=== PATIENT | female | born 1950 | race Caucasian/White ===

== ENCOUNTER 2023-04-27 10:57 | Outpatient (RCR) | payer MEDICARE, OTHER, SELFPAY | END 2023-04-27 23:59 | disposition home or self-care (01) | LOC: RPT 10:57 | PROVIDERS: ATTENDING PHYSICIAN Physical Medicine & Rehabilitation; FAMILY PHYSICIAN Family Medicine | DX: S76.319D Strain of muscle, fascia and tendon of the posterior muscle group at thigh level, unspecified thigh, subsequent encounter (principal); Z73.6 Limitation of activities due to disability; R26.81 Unsteadiness on feet | CPT/HCPCS: 97010; 97110; 97140; 97162; 97530 ==

== ENCOUNTER → 2023-05-09 10:48 | Outpatient (REF) | payer MEDICARE, OTHER, SELFPAY ==
[2023-05-09 11:31] LABS: ALT (SGPT) 19 U/L (0-35); AST (SGOT) 26 U/L (14-36); Albumin 4.2 g/dl (3.5-5.0); Alkaline Phosphatase 64 U/L (38-126); Blood Urea Nitrogen 14 mg/dl (7-17); Calcium 8.9 mg/dl (8.4-10.2); Carbon Dioxide 28 mmol/L (22-30); Chloride 103 mmol/L (98-107); Glucose 183 mg/dl (70-99); HDL Cholesterol 40 mg/dl; LDL Cholesterol, Calculated 95 mg/dl; Potassium 4.5 mmol/L (3.5-5.1); Sodium 137 mmol/L (135-145); Total Bilirubin 0.5 mg/dl (0.2-1.3); Total Cholesterol 154 mg/dl (50-199); Total Protein 7.4 g/dl (6.3-8.2); Triglyceride 98 mg/dl (10-149); Very Low Density Lipoprotein 19 mg/dl (0-30); eGFR > 60.00
[2023-05-09 12:40] LABS: Protein/creatinine Ratio 0.3; Urine Protein 17 mg/dl
[2023-05-09 12:45] LABS: Microalbumin, Random Urine 6.8 mg/dl (0.6-1.7); Microalbumin/creatinine Ratio 105.6 mg/g
[2023-05-09 13:11] LABS: Glycohemoglobin (HgbA1c) 8.1 % (4.0-5.6)
== END ==
LOC: REG 10:48
PROVIDERS: ATTENDING PHYSICIAN Specialist; FAMILY PHYSICIAN Family Medicine; REFERRING PHYSICIAN Internal Medicine Endocrinology, Diabetes & Metabolism
DX: N20.0 Calculus of kidney (principal); I10 Essential (primary) hypertension; R80.9 Proteinuria, unspecified; E11.9 Type 2 diabetes mellitus without complications
CPT/HCPCS: 36415; 80053; 80061; 82043; 82570; 83036; 84156

== ENCOUNTER 2023-05-26 11:55 | Outpatient (RCR) | payer MEDICARE, OTHER, SELFPAY | END 2023-05-26 23:59 | disposition home or self-care (01) | LOC: RPT 11:55 | PROVIDERS: ATTENDING PHYSICIAN Physical Medicine & Rehabilitation; FAMILY PHYSICIAN Family Medicine | DX: S76.319D Strain of muscle, fascia and tendon of the posterior muscle group at thigh level, unspecified thigh, subsequent encounter (principal); Z73.6 Limitation of activities due to disability; R26.81 Unsteadiness on feet; X58.XXXD Exposure to other specified factors, subsequent encounter | CPT/HCPCS: 97010; 97110; 97112; 97140; 97530 ==

== ENCOUNTER → 2023-06-03 14:30 | Outpatient (REF) | payer MEDICARE, OTHER, SELFPAY | LOC: REG 14:30 | PROVIDERS: ATTENDING PHYSICIAN Nurse Practitioner Adult Health; FAMILY PHYSICIAN Family Medicine | DX: J44.9 Chronic obstructive pulmonary disease, unspecified (principal) | CPT/HCPCS: 71046 ==

== ENCOUNTER 2023-06-21 12:08 | Outpatient (RCR) | payer MEDICARE, OTHER, SELFPAY | END 2023-06-21 23:59 | disposition home or self-care (01) | LOC: RPT 12:08 | PROVIDERS: ATTENDING PHYSICIAN Physical Medicine & Rehabilitation; FAMILY PHYSICIAN Family Medicine | DX: S76.319D Strain of muscle, fascia and tendon of the posterior muscle group at thigh level, unspecified thigh, subsequent encounter (principal); R26.81 Unsteadiness on feet; Z73.6 Limitation of activities due to disability | CPT/HCPCS: 97110; 97112; 97530 ==

== ENCOUNTER 2023-07-06 15:09 | Outpatient (RCR) | payer MEDICARE, OTHER, SELFPAY | END 2023-07-07 07:34 | disposition home or self-care (01) | LOC: RPT 15:09 | PROVIDERS: ATTENDING PHYSICIAN Physical Medicine & Rehabilitation; FAMILY PHYSICIAN Family Medicine | DX: S76.319D Strain of muscle, fascia and tendon of the posterior muscle group at thigh level, unspecified thigh, subsequent encounter (principal); R26.81 Unsteadiness on feet; Z73.6 Limitation of activities due to disability | CPT/HCPCS: 97110; 97530 ==

== ENCOUNTER → 2023-07-27 11:00 | Outpatient (REF) | payer MEDICARE, OTHER, SELFPAY ==
[2023-07-27 13:01] LABS: Glycohemoglobin (HgbA1c) 8.3 % (4.0-5.6)
[2023-07-27 13:20] LABS: ALT (SGPT) 20 U/L (0-35); AST (SGOT) 29 U/L (14-36); Albumin 4.6 g/dl (3.5-5.0); Alkaline Phosphatase 62 U/L (38-126); Blood Urea Nitrogen 10 mg/dl (7-17); Calcium 9.6 mg/dl (8.4-10.2); Carbon Dioxide 27 mmol/L (22-30); Chloride 102 mmol/L (98-107); Glucose 156 mg/dl (70-99); Potassium 4.6 mmol/L (3.5-5.1); Sodium 138 mmol/L (135-145); Total Bilirubin 0.5 mg/dl (0.2-1.3); Total Protein 8.2 g/dl (6.3-8.2); eGFR > 60.00
[2023-07-27 15:10] LABS: Microalbumin, Random Urine 13.9 mg/dl (0.6-1.7); Microalbumin/creatinine Ratio 498.2 mg/g
== END ==
LOC: REG 11:00
PROVIDERS: ATTENDING PHYSICIAN Internal Medicine Endocrinology, Diabetes & Metabolism; FAMILY PHYSICIAN Family Medicine
DX: E11.9 Type 2 diabetes mellitus without complications (principal)
CPT/HCPCS: 36415; 80053; 82043; 82570; 83036

== ENCOUNTER 2023-09-12 17:38 | Emergency (ER) | payer MEDICARE, OTHER, SELFPAY ==
[2023-09-12 17:40] VITALS: BP 150/67
[2023-09-12 18:46] VITALS: BMI 28.3
[2023-09-12 18:49] VITALS: BP 138/71
--- NOTE | 2023-09-12 18:56 | ED.GENMED ---
History of Present Illness
General
Chief Complaint: Abdominal Pain
Time Seen by Provider: 09/12/23 18:24
Travel History
Have you had any contact with someone who has COVID-19?: No
Do you have any symptoms of coronavirus? Fever > 100 degrees, chills, cough, shortness of breath, sore throat, loss of taste or smell, muscle aches, or headache?: No
History of Present Illness
History of Present Illness:
73-year-old female with history of insulin-dependent diabetes, hypertension, and hyperlipidemia presents to the emergency department for evaluation of several weeks of waxing and waning abdominal pain. It apparently started on the left side and
does radiate across to the right side. She states this is similar to a kidney stone that she had several years ago. Denies any colicky nature of the pain. No obvious palliating or provoking factors. Denies any lower urinary tract voiding
symptoms. Prior abdominal surgical history includes hysterectomy, ovarian cystectomy, and appendectomy.
Review of Systems
Review of Systems
Allergies reviewed?: Yes
All Other Systems: ROS reviewed and negative except as documented in HPI and ROS
Phy Exam
Physical Exam
Physical Exam:
GEN: Well appearing, NAD, WDWN
Eyes: PERRLA, EOMs intact, no scleral icterus
HENT: NCAT, oral mucosa moist
Lungs: CTAB, no wheezes, rales, rhonchi, normal chest wall excursion
Cardiac: RRR, no M/R/G, no peripheral edema. Radial pulses 2+ bilat
Abdomen: Soft, minimal periumbilical tenderness, no rigidity or peritoneal signs
Neuro: AO x 3
MSK: No gross deformity or ecchymosis. No edema. No digital clubbing
Skin: No rashes, petechiae. Normal color, no pallor or jaundice.
Psych: Calm, cooperative, proper hygiene
Course
Orders/Labs/Results
Orders:
Orders
09/12/23 18:55
CT Abd/Pel (IV only)-DH only Urgent
Comment:
Reason For Exam: generalized abd pain
09/12/23 19:00
Complete Blood Count/With Diff Urgent
Comprehensive Metabolic Panel Urgent
Lipase Urgent
Urinalysis Reflex To Culture Urgent
Date Specimen was Collected: 09/12/23
Time Specimen was Collected: 18:59
Urine Microscopic Reflex Cult Urgent
Abnormal Lab Results
09/12/23
19:00
RBC 3.71 L 10^6/uL
(4.20-5.40)
Hgb 9.7 L g/dL
(12.0-16.0)
Hct 29.1 L %
(37.0-47.0)
MCV 78.4 L fL
(81.0-99.0)
MCH 26.1 L pg
(27.0-31.0)
RDW 17.2 H %
(11.5-14.5)
Absolute Monos (auto) 0.7 H 10^3/uL
(0.1-0.6)
Monocytes % 9.9 H %
(1.7-9.3)
Creatinine 0.4 L mg/dL
(0.6-1.0)
Glucose 130 H mg/dl
(70-99)
Leukocyte Esterase Rfl Trace A
(Negative)
Urine Bacteria (Reflex) Few A
(Negative)
09/12/23 19:00
09/12/23 19:00
Vital Signs
Initial and Last Documented VS:
Initial Vital Signs
Temp Pulse Resp BP Pulse Ox
98.7 F 78 18 150/67 97
09/12/23 17:40 09/12/23 17:40 09/12/23 17:40 09/12/23 17:40 09/12/23 17:40
Last Documented Vital Signs
Temp Pulse Resp BP Pulse Ox
98.7 F 81 27 138/71 93
09/12/23 17:40 09/12/23 20:45 09/12/23 20:45 09/12/23 18:49 09/12/23 20:45
MDM/Problems Addressed
MDM/Problems Addressed:
Patient's labs are unremarkable, CT scan notes questionable hazy stranding around the pancreatic head however this does not fit with her examination and clinical picture coupled with normal lipase do not suspect pancreatitis. Unclear etiology to
the patient's symptoms at this point. Patient does have an outpatient GI specialist that she plans to see later this year, I have encouraged her to follow-up with them on a more urgent outpatient basis as endoscopy and/or colonoscopy may be
warranted here. Educated patient on the signs and symptoms of acute pancreatitis that would suggest need for return to the emergency department for reevaluation of lipase levels
*Critical Care Note
Total Time (30-74mins, 75-104mins- exclusive of procedures): Not Applicable
ED Attending Note
-
Portions of this chart may have been created with voice recognition software.� Occasional wrong word or��sound alike� substitutions may have occurred due to the inherent limitations of voice recognition software.
Discharge Plan
Departure
Patient Disposition: Home (Routine Discharge)
Date of Disposition: 09/12/23
Time of Disposition: 20:56
Patient with high blood pressure during this ER visit?: No
Discharge Problem:
Abdominal pain
Instructions: Abdominal Pain
Prescriptions:
New
sucralfate [Carafate] 1 gram tablet
1 g PO AC Qty: 60 0RF
dicyclomine 20 mg tablet
20 mg PO TID PRN (Reason: abdominal pain) Qty: 20 0RF
Referrals:
Chris Kellogg MD [Family Provider] -
Activity Restrictions/Additional Instructions:
Follow up with your GI specialist
Interventions
Interventions:
*Risk Screen - Suicide Last Done: 09/12/23 18:47
*General Assessment Last Done: 09/12/23 18:47
*Neglect/Abuse Screening Last Done: 09/12/23 18:47
ED- Fall Risk Assessment Last Done: 09/12/23 18:47
*ED COVID-19 Vaccine History Last Done: 09/12/23 18:47
*Nursing Disposition Last Done: 09/12/23 21:10
EB-Wqmnzj-Lgjvdjrvzd Assessment Last Done: 09/12/23 18:47
Discharge Date and Time
Discharge Date/Time: 09/12/23 21:15
Print Language: OCCITAN
[2023-09-12 19:12] LABS: % Basophils 0.9 % (0-2); % Eosinophils 2.1 % (0-6); % Immature Granulocytes 0.1 % (0-0.5); % Lymphocytes 22.8 % (20.5-51.1); % Monocytes 9.9 % (1.7-9.3); % Neutrophils 64.2 % (42.2-75.2); Absolute Basophils 0.1 10^3/uL (0-0.2); Absolute Eosinophils 0.2 10^3/uL (0-0.7); Absolute Lymphocytes 1.7 10^3/uL (1.2-3.4); Absolute Monocytes 0.7 10^3/uL (0.1-0.6); Absolute Neutrophils 4.8 10^3/uL (1.4-6.5); Hematocrit 29.1 % (37.0-47.0); Hemoglobin 9.7 g/dL (12.0-16.0); Mean Corp Hgb Conc. 33.3 g/dL (33.0-37.0); Mean Corpuscular Hgb 26.1 pg (27.0-31.0); Mean Corpuscular Volume 78.4 fL (81.0-99.0); Mean Platelet Volume 8.7 fL (7.4-10.4); Nucleated Red Blood Cells % 0 %; Platelet Count 321 10^3/uL (130-400); Red Blood Cell Count 3.71 10^6/uL (4.20-5.40); Red Cell Dist. Width 17.2 % (11.5-14.5); White Blood Cell Count 7.5 10^3/uL (4.8-10.8)
[2023-09-12 19:14] LABS: Urine Albumin Trace (Neg - Trace); Urine Bilirubin Negative (Negative); Urine Character Clear (Clear); Urine Color Yellow; Urine Glucose Negative (Negative); Urine Ketone Negative (Negative); Urine Leukocyte Trace (Negative); Urine Nitrite Negative (Negative); Urine Occult Blood Negative (Negative); Urine Specific Gravity 1.015 (<1.030); Urine Urobilinogen Negative (Neg - 1+)
[2023-09-12 19:27] LABS: ALT (SGPT) 20 U/L (0-35); AST (SGOT) 26 U/L (14-36); Albumin 4.2 g/dl (3.5-5.0); Alkaline Phosphatase 65 U/L (38-126); Blood Urea Nitrogen 15 mg/dl (7-17); Calcium 9.2 mg/dl (8.4-10.2); Carbon Dioxide 26 mmol/L (22-30); Chloride 104 mmol/L (98-107); Estimated Creatinine Clearance 81 ml/min; Glucose 130 mg/dl (70-99); Lipase 54 U/L (23-300); Potassium 4.5 mmol/L (3.5-5.1); Sodium 141 mmol/L (135-145); Total Bilirubin 0.4 mg/dl (0.2-1.3); Total Protein 7.6 g/dl (6.3-8.2); eGFR > 60.00
[2023-09-12 19:53] LABS: Urine Red Blood Cell 0-2 /HPF (0-2)
[2023-09-12 19:54] LABS: Urine Bacteria Few (Negative)
== END 2023-09-12 21:15 | disposition home or self-care (01) ==
LOC: EMR 17:38
PROVIDERS: Physician Assistant; EMERGENCY PHYSICIAN Emergency Medicine; FAMILY PHYSICIAN Internal Medicine Cardiovascular Disease
DX: R10.9 Unspecified abdominal pain (principal); I10 Essential (primary) hypertension; E11.9 Type 2 diabetes mellitus without complications; E78.5 Hyperlipidemia, unspecified
CPT/HCPCS: 99285; 74177; 80053; 81003; 81015; 83690; 85025; Q9967

== ENCOUNTER → 2023-10-03 14:15 | Outpatient (REF) | payer MEDICARE, OTHER, SELFPAY | LOC: RAD 14:15 | PROVIDERS: ATTENDING PHYSICIAN Internal Medicine Critical Care Medicine; FAMILY PHYSICIAN Family Medicine | DX: J44.9 Chronic obstructive pulmonary disease, unspecified (principal) | CPT/HCPCS: 71250 ==

== ENCOUNTER 2023-10-21 11:57 | Emergency (ER) | payer MEDICARE, OTHER, SELFPAY ==
[2023-10-21 11:57] VITALS: BMI 26.6
[2023-10-21 12:01] VITALS: BP 110/57
--- NOTE | 2023-10-21 12:57 | ED.GENMED ---
History of Present Illness
General
Chief Complaint: Musculo-Skeletal Complaint
Source: patient
Time Seen by Provider: 10/21/23 12:25
History of Present Illness
History of Present Illness:
73-year-old female with past medical history of hypertension, hyperlipidemia and diabetes presenting to the emergency department for evaluation after she accidentally tripped and fell last night injuring her left ankle. Patient also noted she hit
her head on the ground but states her head is not bothering her. There is no loss consciousness, vomiting, visual changes or any other injuries sustained
Past History
Past History
ED Past Medical History: Cancer, HTN, Hypercholesterolemia and IDDM
ED Past Surgical History: Appendectomy, Gynecological and Other
Social History
Tobacco: Non-smoker
Alcohol: None
Drug: None
Personal:
Living: with family
Review of Systems
Review of Systems
All Other Systems: ROS reviewed and negative except as documented in HPI and ROS
Phy Exam
Physical Exam
Physical Exam:
GENERAL: Alert , in no apparent distress
EYE: conjunctiva clear
Head: Normocephalic atraumatic
NECK: Supple,
ENT: mmm.
LUNGS: no acute respiratory distress
NEUROLOGICAL: Alert and oriented
SKIN: Warm and dry, skin intact.
MUSCULOSKELETAL: Left ankle: Mild soft tissue swelling along the lateral malleolus with tenderness in this area. No other focal areas of tenderness. Patient still allows for range of motion but does have some discomfort with plantar and
dorsiflexion. No proximal tib-fib tenderness. Calcaneal tendon intact. Easily palpable pedal and tibial pulses. Sensation grossly intact light touch.
PSYCH: Normal and appropriate interaction.
Scores
Heart Failure Risk
Heart Failure Risk Score: Not Applicable
Heart Score for Chest Pain Patients
STEMI patient?: Not applicable
Withdrawal Assessment of Alcohol
Withdrawal Assessment Completed?: Not applicable
Course
Orders/Labs/Results
Orders:
Orders
10/21/23 12:05
Ankle, left 3 view CR [CR Ankle - Left Min 3 Views ] Urgent
Comment:
Reason For Exam: pain
10/21/23 12:58
Ortho Boot Left- Treatment ONCE
Short or tall?: Tall
Vital Signs
Initial and Last Documented VS:
Initial Vital Signs
Temp Pulse Resp BP Pulse Ox
97.9 F 80 20 110/57 94
10/21/23 12:01 10/21/23 12:01 10/21/23 12:01 10/21/23 12:01 10/21/23 12:01
Last Documented Vital Signs
Temp Pulse Resp BP Pulse Ox
97.9 F 80 20 110/57 94
10/21/23 12:01 10/21/23 12:01 10/21/23 12:01 10/21/23 12:01 10/21/23 12:01
MDM/Problems Addressed
Differential Diagnosis Includes:
Sprain, fracture, contusion, I do not have concern for any intracranial pathologies
MDM/Problems Addressed:
73-year-old female presenting emergency department for evaluation of pain following accidental fall last night. X-ray was ordered from triage and shows nondisplaced fracture of the lateral malleolus. Patient notes that she is ambulating because of
some pain while doing so. Will place in a orthopedic boot and patient was also provided with a walker to help with ambulation. Patient was provided with information for orthopedics to follow-up with. She has been seen by [facility] in the
past. Stable for discharge home otherwise
*Radiology
Radiology exam reviewed: preliminary read by ED provider (Nondisplaced lateral malleolus fracture)
*Pulse Oximetry
Patient hypoxic: no
*Critical Care Note
Total Time (30-74mins, 75-104mins- exclusive of procedures): Not Applicable
ED Attending Note
-
Portions of this chart may have been created with voice recognition software.� Occasional wrong word or��sound alike� substitutions may have occurred due to the inherent limitations of voice recognition software.
Discharge Plan
Departure
Patient Disposition: Home (Routine Discharge)
Date of Disposition: 10/21/23
Time of Disposition: 12:57
Patient with high blood pressure during this ER visit?: No
Discharge Problem:
Closed fracture of lateral malleolus of left fibula
Instructions: Ankle Fracture (DC)
Prescriptions:
No Action
sucralfate [Carafate] 1 gram tablet
1 g PO AC Qty: 60 0RF
dicyclomine 20 mg tablet
20 mg PO TID PRN (Reason: abdominal pain) Qty: 20 0RF
Referrals:
Fer Samano MD [Active] - (Ortho)
Chris Kellgog MD [Family Provider] -
Interventions
Interventions:
*Risk Screen - Suicide Last Done: 10/21/23 12:01
*General Assessment Last Done: 10/21/23 13:53
*Neglect/Abuse Screening Last Done: 10/21/23 12:01
ED- Fall Risk Assessment Last Done: 10/21/23 12:01
*Nursing Disposition Last Done: 10/21/23 13:53
ED-Musculoskeletal Assessment Last Done: 10/21/23 12:12
Discharge Date and Time
Print Language: AUSTRALIAN
--- NOTE | 2023-10-21 13:53 | EDRN ---
Pt could not ambulate with boot and cane. Provided Walker. Reports better.
== END 2023-10-21 13:54 | disposition home or self-care (01) ==
LOC: EMR 11:57
PROVIDERS: EMERGENCY PHYSICIAN Student in an Organized Health Care Education/Training Program; FAMILY PHYSICIAN Family Medicine
DX: S82.62XA Displaced fracture of lateral malleolus of left fibula, initial encounter for closed fracture (principal); W01.0XXA Fall on same level from slipping, tripping and stumbling without subsequent striking against object, initial encounter; I10 Essential (primary) hypertension
CPT/HCPCS: 99283; 73610

== ENCOUNTER → 2023-10-27 10:17 | Outpatient (REF) | payer MEDICARE, OTHER, SELFPAY ==
[2023-10-27 11:40] LABS: % Eosinophils 3.5 % (0-6); % Immature Granulocytes 0.3 % (0-0.5); % Lymphocytes 16.2 % (20.5-51.1); % Monocytes 5.4 % (1.7-9.3); % Neutrophils 73.6 % (42.2-75.2); Absolute Basophils 0.1 10^3/uL (0-0.2); Absolute Eosinophils 0.3 10^3/uL (0-0.7); Absolute Lymphocytes 1.2 10^3/uL (1.2-3.4); Absolute Monocytes 0.4 10^3/uL (0.1-0.6); Absolute Neutrophils 5.4 10^3/uL (1.4-6.5); Hematocrit 29.8 % (37.0-47.0); Hemoglobin 9.6 g/dL (12.0-16.0); Mean Corp Hgb Conc. 32.2 g/dL (33.0-37.0); Mean Corpuscular Hgb 25.9 pg (27.0-31.0); Mean Corpuscular Volume 80.3 fL (81.0-99.0); Mean Platelet Volume 8.6 fL (7.4-10.4); Nucleated Red Blood Cells % 0 %; Platelet Count 478 10^3/uL (130-400); Red Blood Cell Count 3.71 10^6/uL (4.20-5.40); Red Cell Dist. Width 18.1 % (11.5-14.5); White Blood Cell Count 7.4 10^3/uL (4.8-10.8)
[2023-10-27 12:28] LABS: IgA 438 mg/dl (70-400)
[2023-10-27 12:29] LABS: Iron 64 ug/dl (37-170); Triglycerides 135 mg/dl (10-149)
[2023-10-27 12:42] LABS: Percent Saturation 16 % (20-50); Total Iron Binding Capacity 381 ug/dl (265-497)
[2023-10-27 13:19] LABS: Folate > 20.0 ng/ml (2.76-20); Vitamin B12 353 pg/ml (239-931)
[2023-10-29 22:25] LABS: Endomysial IgA Antibody Titer <1:10 (<1:10)
[2023-10-30 02:54] LABS: IgG Subclass 4 69 mg/dL (1-123)
[2023-10-30 09:16] LABS: ANA, IgG Reflex to HEp-2 None Detected (None Detected)
== END ==
LOC: REG 10:17
PROVIDERS: ATTENDING PHYSICIAN Specialist; FAMILY PHYSICIAN Family Medicine
DX: K85.00 Idiopathic acute pancreatitis without necrosis or infection (principal); D64.9 Anemia, unspecified; D51.9 Vitamin B12 deficiency anemia, unspecified
CPT/HCPCS: 36415; 82607; 82728; 82746; 82784; 82787; 83516; 83540; 83550; 84478; 85025; 86038; 86231

== ENCOUNTER 2023-11-02 03:59 | Inpatient (IN) | payer MEDICARE, OTHER, SELFPAY ==
[2023-11-01 23:17] VITALS: BMI 28.0
[2023-11-01 23:23] VITALS: BP 142/67
[2023-11-01 23:31] LABS: Glucose - Point of Care 140 mg/dl (70-99)
[2023-11-01 23:46] LABS: % Basophils 0.9 % (0-2); % Eosinophils 3.5 % (0-6); % Immature Granulocytes 0.5 % (0-0.5); % Lymphocytes 17.4 % (20.5-51.1); % Monocytes 8.2 % (1.7-9.3); % Neutrophils 69.5 % (42.2-75.2); Absolute Basophils 0.1 10^3/uL (0-0.2); Absolute Eosinophils 0.3 10^3/uL (0-0.7); Absolute Lymphocytes 1.5 10^3/uL (1.2-3.4); Absolute Monocytes 0.7 10^3/uL (0.1-0.6); Absolute Neutrophils 6.1 10^3/uL (1.4-6.5); Hemoglobin 9.2 g/dL (12.0-16.0); Mean Corp Hgb Conc. 32.9 g/dL (33.0-37.0); Mean Corpuscular Hgb 26.2 pg (27.0-31.0); Mean Corpuscular Volume 79.8 fL (81.0-99.0); Mean Platelet Volume 9.3 fL (7.4-10.4); Nucleated Red Blood Cells % 0 %; Platelet Count 346 10^3/uL (130-400); Red Blood Cell Count 3.51 10^6/uL (4.20-5.40); Red Cell Dist. Width 19.3 % (11.5-14.5); White Blood Cell Count 8.8 10^3/uL (4.8-10.8)
[2023-11-02] VITALS (12 sets, daily range): BP systolic 123–137; BP diastolic 55–73; BMI 27.9
--- NOTE | 2023-11-02 00:27 | ED.GENMED ---
History of Present Illness
General
Chief Complaint: Blood Sugar Problem
Source: patient, spouse and ambulance crew
Exam Limitations: none
Time Seen by Provider: 11/02/23 00:05
Nursing documentation reviewed up to this point in time: agreed with
History of Present Illness
History of Present Illness:
73-year-old female presents emergency room complaining of low blood sugar. Glucometer a low blood sugar alert. EMS was called by family. She ate candy and drank a soda but it did not come up. She was given D10 by EMS, and improved to 92 from 28.
She reports shortness of breath and cough.
Past History
Past History
ED Past Medical History: Cancer, HTN, Hypercholesterolemia and IDDM
ED Past Surgical History: Appendectomy, Gynecological and Other
Social History
Tobacco: Non-smoker
Alcohol: None
Drug: None
Personal:
Living: with family
Review of Systems
Review of Systems
All Other Systems: Not applicable
Constitutional: Reports fatigue; Denies fever
EENT: Reports no symptoms
Respiratory: Reports cough and trouble breathing
Cardiac: Reports no symptoms
ABD/GI: Reports no symptoms
: Reports no symptoms
Musculoskeletal: Reports no symptoms
Skin: Reports no symptoms
Neurological: Reports no symptoms
Endocrine: Reports no symptoms
Hematologic/Lymphatic: Reports no symptoms
Psychiatric: Reports no symptoms
Phy Exam
Physical Exam
Physical Exam:
Physical Exam
General: no apparent distress, not acutely ill
Neck: supple. no meningeal signs. normal posterior pharynx
Heart: s1/s2 regular rate and rhythm, no murmur. equal radial
pulses.
HEENT: Pupils equal round reactive to light, EOMI
Lungs: no acute respiratory distress. clear bilaterally
Abdomen: normal bowel sounds. not tender. no CVAT
Neuro: alert and oriented. no focal neurological deficits cranial nerves II through XII intact
Skin: no rash
Psychiatric: well kept. interactive and cooperative
Extremities: no edema. no calf tenderness. negative homans. good distal pulses
Course
Orders/Labs/Results
Orders:
Orders
11/01/23 23:31
Electrocardiogram (*1) Urgent
Reason for Study: QTc Monitoring
EKG- Treatment ONCE
11/01/23 23:35
Complete Blood Count/With Diff Urgent
11/01/23 23:53
Comprehensive Metabolic Panel Urgent
11/02/23 00:18
CR Chest - 2 Views Urgent
Comment:
Reason For Exam: short of breath
11/02/23 00:19
COVID-19 Antigen Urgent
Source: Nasal Swab
11/02/23 02:33
Cortisol, Random Routine
11/02/23 02:34
Urinalysis Reflex To Culture Routine
11/02/23 06:00
Cortisol, Random IN AM
Abnormal Lab Results
11/01/23 11/01/23 11/02/23
23:30 23:35 00:19
RBC 3.51 L 10^6/uL
(4.20-5.40)
Hgb 9.2 L g/dL
(12.0-16.0)
Hct 28.0 L %
(37.0-47.0)
MCV 79.8 L fL
(81.0-99.0)
MCH 26.2 L pg
(27.0-31.0)
MCHC 32.9 L g/dL
(33.0-37.0)
RDW 19.3 H %
(11.5-14.5)
Absolute Monos (auto) 0.7 H 10^3/uL
(0.1-0.6)
Lymphocytes % 17.4 L %
(20.5-51.1)
Carbon Dioxide 20 L mmol/L
(22-30)
Creatinine 0.4 L mg/dL
(0.6-1.0)
Glucose 114 H mg/dl
(70-99)
POC Glucose 140 H mg/dl
(70-99)
11/01/23 23:35
11/02/23 00:19
Vital Signs
Initial and Last Documented VS:
Initial Vital Signs
Temp Pulse Resp BP Pulse Ox
98.2 F 74 18 142/67 95
11/01/23 23:23 11/01/23 23:23 11/01/23 23:23 11/01/23 23:23 11/01/23 23:23
Last Documented Vital Signs
Temp Pulse Resp BP Pulse Ox
98.2 F 75 21 132/61 95
11/01/23 23:23 11/02/23 02:30 11/02/23 02:30 11/02/23 02:00 11/02/23 02:30
MDM/Problems Addressed
Differential Diagnosis Includes:
Pneumonia, CHF, hypoglycemia, bronchitis
MDM/Problems Addressed:
73-year-old female with hypoxia of unclear etiology, possibly due to bronchitis versus aspiration. Doubt PE. Hypoglycemia from inappropriate insulin use. Admit to hospitalist for further monitoring.
Chronic conditions affecting care: DM
Acute Exacerbation and/or Progression of Chronic Illness: DM
*Radiology
Radiology exam reviewed: preliminary read by ED provider (Chest x-ray no acute findings)
*Pulse Oximetry
Patient hypoxic: yes
*EKG
Interpreted by ED Provider?: NA
*Audit Intern Interpretation
Rate: normal
Interpretation: normal
Heart Rate: 75
Rhythm: sinus
*Critical Care Note
Total Time (30-74mins, 75-104mins- exclusive of procedures): Not Applicable
Data Reviewed
Further Testing Considered But Not Given:
CT chest not indicated
Patient Management
Social determinants of health affecting care: Living situation
Discussion with other providers: Hospitalist
Escalation/DeEscalation of care consider admission/obs:
Admit indicated
ED Attending Note
-
Portions of this chart may have been created with voice recognition software.� Occasional wrong word or��sound alike� substitutions may have occurred due to the inherent limitations of voice recognition software.
Discharge Plan
Departure
Patient Disposition: Admit
Date of Disposition: 11/02/23
Time of Disposition: 02:17
Admit to: Telemetry
Presentation/result/management discussed w/ accepting MD/DO: Hospitalist
Patient with high blood pressure during this ER visit?: Yes
Condition: Fair
Discharge Problem:
Hypoglycemia associated with diabetes, Hypoxia
Prescriptions:
No Action
losartan 50 mg Tablet
50 mg PO DAILY
amlodipine 2.5 mg Tablet
7.5 mg PO DAILY
(DME) Nebulizer Kit
MISCELLANEOUS
Rx Instructions:
BID
atorvastatin 40 mg Tablet
40 mg PO DAILY
metformin 500 mg Tablet
500 mg PO BID
fluoxetine 10 mg Tablet
10 mg PO DAILY
omeprazole 40 mg Capsule,Delayed Release(Dr/Ec)
40 mg PO DAILY
glimepiride 1 mg Tablet
1 mg PO DAILY
amitriptyline 25 mg Tablet
25 mg PO DAILY
nadolol 40 mg Tablet
40 mg PO DAILY
montelukast 10 mg Tablet
10 mg PO DAILY
Levemir FlexPen 100 unit/mL (3 mL) Insulin Pen
SC
Novolog Mix 70-30 U-100 Insuln
Referrals:
UNKNOWN - PT DOES,NOT KNOW [Family Provider] -
Interventions
Interventions:
*Risk Screen - Suicide Last Done: 11/01/23 23:18
*General Assessment Last Done: 11/01/23 23:18
*Neglect/Abuse Screening Last Done: 11/01/23 23:18
ED- Fall Risk Assessment Last Done: 11/02/23 01:30
*ED COVID-19 Vaccine History Last Done: 11/02/23 01:30
ED- Neurological Assessment Last Done: 11/01/23 23:30
Discharge Date and Time
Print Language: NEPALI
[2023-11-02 00:37] LABS: COVID-19 Antigen Negative (Negative)
[2023-11-02 00:44] LABS: ALT (SGPT) 16 U/L (0-35); AST (SGOT) 30 U/L (14-36); Albumin 3.7 g/dl (3.5-5.0); Alkaline Phosphatase 63 U/L (38-126); Blood Urea Nitrogen 13 mg/dl (7-17); Calcium 9.4 mg/dl (8.4-10.2); Carbon Dioxide 20 mmol/L (22-30); Chloride 104 mmol/L (98-107); Estimated Creatinine Clearance 81 ml/min; Glucose 114 mg/dl (70-99); Potassium 3.7 mmol/L (3.5-5.1); Sodium 137 mmol/L (135-145); Total Bilirubin 0.4 mg/dl (0.2-1.3); Total Protein 6.8 g/dl (6.3-8.2); eGFR > 60.00
[2023-11-02 02:07] LABS: Glucose - Point of Care 84 mg/dl (70-99)
--- NOTE | 2023-11-02 02:36 | HPS.HSE ---
Family Physician
-
Family Physician: NOT KNOW UNKNOWN - PT DOES
Chief Complaint
-
low BG
History of Present Illness
HPI
73F Non smoker [facility] with HX IDDM seen at ER for evaluation of Hypoglycemia
- Low BG was alerted by Glucometer - not improved with candy and soda
- Per EMS BG was 47 then 28 - D10 was given at BG become 92
- Report poor PO intake
- On Tuesday11/01/23 : overmedicated with NovoLog (5u at Breakfast + 5 u at Lunch + 15U at Dinner plus 1/2 table of Glimepiride 1 mg on on Tuesday 10/31)
- very small intake at dinner per spouse on Tuesday11/01/23
Known HX abn CT for numerous scattered tiny pulmonary nodules t
- plan to repeat CT chest in 1- 2weeks
- OP f/u with Dr Ramírez
ROS:
- POS SoB and cough
Medical History
Past Medical History
Past Medical History: Reports HTN, IDDM and Other
Additional Past Medical History:
10/03/23 CT Chest W/o Iv Contrast : Numerous scattered tiny pulmonary nodules throughout all lobes, new from prior exam 07/22/2021.
Past Surgical History: Reports Appendectomy and Gynocological
Social History
Tobacco: Non-smoker
Alcohol: None
Drug: None
Living: With Family
Family History
Family History: Not pertinent
Allergies / Home Medications
Allergies reflects when Allergies were last updated in [facility].
Home Medications with original date entered in [facility]
Allergy/Medication List:
Allergies
Allergy/AdvReac Type Severity Reaction Status Date / Time
NKA - No Known Allergies Allergy Unknown Uncoded 11/01/23 23:17
seasonal Allergy headache Uncoded 11/01/23 23:17
Home Medications
Novolog Mix 70-30 U-100 Insuln 11/02/23
amitriptyline 25 mg tablet 25 mg PO DAILY 11/02/23
amlodipine 2.5 mg tablet 7.5 mg PO DAILY 11/02/23
atorvastatin 40 mg tablet 40 mg PO DAILY 11/02/23
fluoxetine 10 mg tablet 10 mg PO DAILY 11/02/23
glimepiride 1 mg tablet 1 mg PO DAILY 11/02/23
insulin detemir U-100 100 unit/mL (3 mL) subcutaneous pen (Levemir FlexPen) unit SC 11/02/23
losartan 50 mg tablet 50 mg PO DAILY 11/02/23
metformin 500 mg tablet 500 mg PO BID 11/02/23
montelukast 10 mg tablet 10 mg PO DAILY 11/02/23
nadolol 40 mg tablet 40 mg PO DAILY 11/02/23
nebulizer accessories 11/02/23
omeprazole 40 mg capsule,delayed release 40 mg PO DAILY 11/02/23
Review of Systems
-
Constitutional: Reports No Symptoms
EENT: Reports No Symptoms
Respiratory: Reports No Symptoms
Cardiac: Reports No Symptoms
Abdomen/GI: Reports No Symptoms
: Reports No Symptoms
Musculoskeletal: Reports No Symptoms
Skin: Reports No Symptoms
Neurological: Reports No Symptoms
Endocrine: Reports See HPI
Hematologic/Lymphatic: Reports No Symptoms
Psych: Reports No Symptoms
Physical Exam
Vital Signs
Vital Signs
Temp Pulse Resp BP Pulse Ox
98.2 F 72 18 129/60 93
11/01/23 23:23 11/02/23 00:30 11/02/23 00:30 11/02/23 00:00 11/02/23 00:30
Physical Exam
General: Well Developed, Well Nourished and No Apparent Distress
HEENT: NormoCephalic, Moist mucous membranes and Atraumatic
Respiratory: Clear
Cardiac: S1/S2 and Regular Rhythm; No Murmur or Rub
GI: Soft, Non Tender, Non Distended and Normal Bowel Sounds; No Organomegaly
Rectal: Deferred by Provider
Musculoskeletal: No Clubbing, No Cyanosis and No Edema
Skin: No Rash
Neuro: Nonfocal/grossly intact
Laboratory Results
-
11/01/23 23:35
11/02/23 00:19
Laboratory Results
Total Bilirubin 0.4 mg/dl (0.2-1.3) 11/02/23 00:19
AST 30 U/L (14-36) 11/02/23 00:19
ALT 16 U/L (0-35) 11/02/23 00:19
Alkaline Phosphatase 63 U/L (38-126) 11/02/23 00:19
Data Reviewed
-
Lab Data: Labs Reviewed by me
Old Records: Reviewed
Impression/Plan
-
Reviewed VS: Afebrile POx 90- 93 % on RA otherwise unremarkable
Data
nl WCC
Hgb 9.2 - baseline mid to hi 9s
MCV 78
Unremarkable BMP
B --> 84
NEG Covid
My read on CXR: Unremarkable
10/03/23 CT Chest W/o Iv Contrast
- Numerous scattered tiny pulmonary nodules throughout all lobes, new from prior exam 07/22/2021. Given the patient's history, these are suspicious for tiny metastases, less likely infectious/inflammatory nodules. Recommend continued attention on a
short-term follow-up noncontrast CT chest in 6-8 weeks.
- Of note, the nodules are below PET imaging resolution
NO PRIOR hospitalist admission:
ASSESSMENT & PLAN
Severe hypoglycemia due to overmedicated with NovoLog (5u at Breakfast + 5 u at Lunch + 15U at Dinner plus 1/2 table of Glimepiride 1 mg on on Tuesday 10/31) but very small intake at dinner per spouse
Missed Levemir 42 HS on Tuesday 10/31 night
HX IDDM
- check UA to complete w/u
- random cortisol now and in AM
- add Hypoglycemic protocol
- add ISS moderate
- D5NS @ 60 H - hold if BG persistently > 140
- Hold any hypoglycemic agents ( Glimepiride, Metformin,and NovoLog and Levemir for now )
Borderline Hypoxia of unclear etiology
Known HX abn CT for numerous scattered tiny pulmonary nodules - known to Dr Herrera - plan to repeat CT chest in 1- 2weeks
- Titrate O2 to keep Pox > 94 %
- f/u final CXR report
- Repeat CT chest w/o IV contrast
- Pul consult
Essential HTN
- currently normotensive
- cont. Amlodipine, Losartan and Nadolol
HLD
- on Atorvastatin
Depression
- cont. Fluoxetine
DVT Px: LMWH
Code: Full code
IP TLM
[2023-11-02 05:25] LABS: Glucose - Point of Care 240 mg/dl (70-99)
[2023-11-02 06:53] LABS: Glucose - Point of Care 275 mg/dl (70-99)
[2023-11-02 07:00] LABS: Urine Albumin Trace (Neg - Trace); Urine Bilirubin Negative (Negative); Urine Character Clear (Clear); Urine Color Yellow; Urine Glucose Negative (Negative); Urine Ketone Negative (Negative); Urine Leukocyte Trace (Negative); Urine Nitrite Negative (Negative); Urine Occult Blood Negative (Negative); Urine Specific Gravity 1.025 (<1.030); Urine Urobilinogen Negative (Neg - 1+)
[2023-11-02 07:21] LABS: Urine Mucus Many; Urine Squamous Cell >30 /LPF (Few)
[2023-11-02 07:25] LABS: Urine Amorphous Seen; Urine Red Blood Cell 0-2 /HPF (0-2); Urine White Cell 0-2 /HPF (0-5)
[2023-11-02] MEDS: COZAAR 50 MG PO (07:50)
[2023-11-02] MEDS: NORVASC 7.5 MG PO (07:50)
[2023-11-02] MEDS: PROTONIX 40 MG PO (07:50)
[2023-11-02] MEDS: SINGULAIR 10 MG PO (07:51)
[2023-11-02] MEDS: PROZAC 10 MG PO (07:51)
[2023-11-02] MEDS: CORGARD 40 MG PO (07:51)
[2023-11-02] MEDS: LIPITOR 40 MG PO (07:51)
[2023-11-02] MEDS: ELAVIL PO (07:54)
[2023-11-02 08:13] LABS: ALT (SGPT) 16 U/L (0-35); AST (SGOT) 24 U/L (14-36); Albumin 3.6 g/dl (3.5-5.0); Alkaline Phosphatase 68 U/L (38-126); Blood Urea Nitrogen 11 mg/dl (7-17); Calcium 9.3 mg/dl (8.4-10.2); Carbon Dioxide 22 mmol/L (22-30); Chloride 102 mmol/L (98-107); Estimated Creatinine Clearance 81 ml/min; Glucose 244 mg/dl (70-99); Potassium 4.2 mmol/L (3.5-5.1); Sodium 135 mmol/L (135-145); Total Bilirubin 0.3 mg/dl (0.2-1.3); Total Protein 6.5 g/dl (6.3-8.2); eGFR > 60.00
[2023-11-02] MEDS: NOVOLOG FLEXPEN-LOW RESISTANCE 3 UNITS SC (08:37)
[2023-11-02 09:08] LABS: Glycohemoglobin (HgbA1c) 5.8 % (4.0-5.6)
[2023-11-02 09:58] LABS: Hematocrit 27.2 % (37.0-47.0); Hemoglobin 8.6 g/dL (12.0-16.0); Mean Corp Hgb Conc. 31.6 g/dL (33.0-37.0); Mean Corpuscular Hgb 26.1 pg (27.0-31.0); Mean Corpuscular Volume 82.4 fL (81.0-99.0); Mean Platelet Volume 9.2 fL (7.4-10.4); Platelet Count 326 10^3/uL (130-400); Red Cell Dist. Width 18.8 % (11.5-14.5); White Blood Cell Count 5.9 10^3/uL (4.8-10.8)
[2023-11-02 10:41] LABS: Cortisol, Random 21.4 ug/dl
[2023-11-02 11:29] LABS: Glucose - Point of Care 228 mg/dl (70-99)
[2023-11-02] MEDS: NOVOLOG FLEXPEN-LOW RESISTANCE 2 UNITS SC (11:45)
--- NOTE | 2023-11-02 12:02 | W.PN.HOSP.TC ---
Addendum entered and electronically signed by Mary Coats MD 11/02/23 12:42:
[facility]
-plans for work-up outpatient as below
-discussing with GI if inpatient work-up recommended
-Hg relatively stable
Original Note:
Today's Communication/Plan
-
resume lantus at lower dosing
ISS low
Abdominal US
TTE
Trial of Lasix
Follow up further pulmonary recs
Assessment / Plan
Assessment / Plan
10/03/23 CT Chest W/o Iv Contrast
- Numerous scattered tiny pulmonary nodules throughout all lobes, new from prior exam 07/22/2021. Given the patient's history, these are suspicious for tiny metastases, less likely infectious/inflammatory nodules. Recommend continued attention on a
short-term follow-up noncontrast CT chest in 6-8 weeks.
- Of note, the nodules are below PET imaging resolution
CT CHEST
IMPRESSION:
Again seen are numerous subcentimeter pulmonary nodules which have a lower lobe predominance and are overall slightly increased in size from prior. Findings are most suspicious for pulmonary metastases.
There is new perisplenic and perihepatic free fluid in the upper abdomen.
ASSESSMENT & PLAN
Severe hypoglycemia in setting of insulin use, Glimepiride and decreased PO intake
IDDM
- A1c 5.8 - risk for hypoglycemia
- s/p D5, BGL now 200's
- resume Lantus at lower dosing (takes Levemir 42 units q hs at home - give 10 units now and qhs)
- hole Glimepiride, metformin and standing pre-meal Novolog
Hypoxic Resp Insufficiency
-patient appears overloaded on exam with elevated JVP
-pulm nodules may also be contributing to hypoxia
-trial of lasix 20mg IV x 1
-TTE
Known HX abn CT for numerous scattered tiny pulmonary nodules
-repeat CT shows numerous nodules overall slightly increased in size from prior, findings most suspicious for pulmonary metastases
-concern GI primary as patient has new free fluid perisplenic and perihepatic. She has scheduled MRI Abdomen and EGD/[place] as outpatient - I will start with abdominal US given new fluiid, can likely continue with outpatient work-up - will discuss
with pulmonary
Essential HTN
- currently normotensive
- cont. Amlodipine, Losartan and Nadolol
HLD
- on Atorvastatin
Depression
- cont. Fluoxetine
DVT Px: LMWH
Code: Full code
IP TLM
Anticipated Discharge: 24 - 48 hours
Subjective/Interval History
-
Date of Service: November 02, 2023
new shortness of breath
has had difficulty eating over past month, no pain - plan for outpatient MRI and EGD/[place] at end of month
Objective Data
-
Labs:
Laboratory Results
11/02/23 11/02/23
00:19 07:07
WBC 5.9
Hgb 8.6 L
Hct 27.2 L
Plt Count 326
Sodium 137 135
Potassium 3.7 4.2
Chloride 104 102
Carbon Dioxide 20 L 22
BUN 13 11
Creatinine 0.4 L 0.5 L
Glucose 114 H 244 H
Calcium 9.4 9.3
Total Bilirubin 0.4 0.3
AST 30 24
ALT 16 16
Alkaline Phosphatase 63 68
Vital Signs:
Vital Signs
Temp Pulse Resp BP Pulse Ox
98.1 F 76 16 133/64 94
11/02/23 11:25 11/02/23 11:25 11/02/23 11:25 11/02/23 11:25 11/02/23 11:25
Review of Systems
-
History Source: Patient
All other systems: Reviewed and negative
Physical Exam
-
General: No Apparent Distress
HEENT: PERRLA
Respiratory: Wheezes
Cardiac: S1/S2, Irregular Rhythm and JVD
GI: Soft, Nontender and Distended
Skin: Warm and Dry; Negative Rash
Neuro: AO x 3
Psych: Calm
Data Reviewed
-
Diagnostic Radiology: Report Reviewed by me
Labs: Labs Reviewed by me
[2023-11-02] MEDS: LASIX 20 MG IV (12:59)
[2023-11-02] MEDS: LANTUS 0.1 UNITS SC ×2 (13:01→22:14)
--- NOTE | 2023-11-02 14:34 | CON.PUL ---
Consultation
Consultation Request
Date/Time Consultation Requested: 11/01
Date/Time Consultation Performed: 11/01
Reason for Consultation: Pulmonary nodules
Medical History
-
History of Present Illness:
History obtained from the patient, outpatient and inpatient medical records. Patient is a 73-year-old female with history of chronic pansinusitis, bronchiolitis, sleep apnea, who presents by ambulance with low blood sugar. Patient glucometer was
alerted, EMS was called. Patient was given D10, blood sugar improved from 28-92. Per ED records, there was complaints of shortness of breath and cough. Upon arrival, lungs were clear, afebrile, pulse 74, breathing 18, blood pressure 142/67, 95%.
Patient was admitted for further management and comment on abnormal CT chest which identified pulmonary nodules.
Of note, patient has a variety of chronic complaints, some new over the last few weeks including abdominal discomfort, belching, poor appetite. She is lost about 10 pounds recently. She denies any new medications. She is cut her insulin therapy
due to poor appetite. She also has chronic diarrhea. She is not tolerating her CPAP as consistently as before due to cough. She is not taking her nebulizer consistently as before. and son at bedside to corroborate
.
PMH: Hypertension, hyperlipidemia, chronic rhinitis, chronic bronchiolitis, chronic sinusitis, diabetes, history of colon polyps with polypectomy, history of breast cancer, GERD, history of pulm nodules follow-up as outpatient. History of
mastectomy with flap reconstruction, right ureteroscopy with lithotripsy and stent 2007, sinus surgery 2019, hysterectomy, appendectomy
Past Medical History
Past Medical History: None (See above)
Past Surgical History: None (See above)
Social History
Tobacco: Non-smoker
Alcohol: Occasional
Drug: None
Personal:
Living: With Family
Employment: Retired (Teacher)
Environmental Exposures: Possible wood dust exposure from [employer]
Family History
Family History: Other (Father at age 90, mother alive age 90. 2 children are healthy. 3 siblings healthy. There is a family history of breast cancer)
Allergies / Home Medications
Allergies
Allergy/AdvReac Type Severity Reaction Status Date / Time
NKA - No Known Allergies Allergy Unknown Uncoded 11/01/23 23:17
seasonal Allergy headache Uncoded 11/01/23 23:17
Home Medications
�Medication �Instructions �Recorded �Confirmed �Last Taken �Type
Novolog Mix 70-30 U-100 Insuln 11/02/23 Unknown History
amitriptyline 25 mg tablet 25 mg PO DAILY 11/02/23 11/02/23 Unknown History
amlodipine 2.5 mg tablet 7.5 mg PO DAILY 11/02/23 11/02/23 Unknown History
atorvastatin 40 mg tablet 40 mg PO DAILY 11/02/23 11/02/23 Unknown History
fluoxetine 10 mg tablet 10 mg PO DAILY 11/02/23 11/02/23 Unknown History
glimepiride 1 mg tablet 1 mg PO DAILY 11/02/23 11/02/23 Unknown History
insulin detemir U-100 100 unit/mL unit SC 11/02/23 Unknown History
(3 mL) subcutaneous pen (Levemir
FlexPen)
losartan 50 mg tablet 50 mg PO DAILY 11/02/23 11/02/23 Unknown History
metformin 500 mg tablet 500 mg PO BID 11/02/23 11/02/23 Unknown History
montelukast 10 mg tablet 10 mg PO DAILY 11/02/23 11/02/23 Unknown History
nadolol 40 mg tablet 40 mg PO DAILY 11/02/23 11/02/23 Unknown History
nebulizer accessories 11/02/23 11/02/23 Unknown History
omeprazole 40 mg capsule,delayed 40 mg PO DAILY 11/02/23 11/02/23 Unknown History
release
Review of Systems
-
All other systems: Negative unless noted
Vitals / Labs / Diagnostic Testing
Vital Signs
Temp Pulse Resp BP Pulse Ox
98.1 F 76 16 133/64 94
11/02/23 11:25 11/02/23 12:59 11/02/23 11:25 11/02/23 12:59 11/02/23 11:25
Lab Data
11/02/23 07:07
11/02/23 07:07
Diagnostic Testing:
Physical Exam
-
HEENT: Normocephalic, Anicteric and Other (Large neck)
Cardiovascular: S1/S2, Regular Rhythm, Murmur (n), Rub (n) and Other (Trace left lower extremity, left foot bandage)
Respiratory: Wheeze (Mild), Rales (n), Rhonchi (n) and Non-Labored Respirations
GI: Soft, Distended and Tender (Mild, nonspecific, no rebound)
Neurology: Awake, Alert and No Motor Deficits
Skin: Good Color
Assessment
-
73-year-old female with history of chronic cough, history of bronchiolitis, rhinitis/sinusitis, sleep apnea on CPAP therapy presents with acute hypoglycemia. Patient has had a poor appetite, weight loss, abdominal discomfort, diarrhea over the past
few weeks. She was found to have a blood sugar of 28, given D10 in the field. She also describes shortness of breath and worsening cough. For this reason she had a CT chest which we are asked to comment on
Multiple pulmonary nodules per CT chest, largest 7 mm
Minimally changed compared to September 2023
New compared to 2021
Followed as outpatient
Acute hypoglycemia, blood sugar 28
Required D10 in the field
Poor p.o. intake over the past few weeks
History of insulin-dependent diabetes
Follows endocrine ([facility])
Anemia
Nonspecific GI symptoms
Abdominal discomfort, early satiety, diarrhea
Conditions present prior to admission
Obstructive sleep apnea on CPAP
Chronic rhinitis/bronchiolitis/sinusitis
History of sinus surgery
Followed by ENT ([facility])
Improved FEV1 since 2018 on nebulized therapy
GERD, Fernandez's esophagitis per history
Plan/recommendations
Patient has a variety of complaints, primarily GI
Workup pending, sees Dr. Jones as outpatient
Abdominal CT August 2023 with mild peripancreatic edema
Awaiting MRI imaging
Reviewed CT chest. Scattered pulmonary nodules, too small for further workup, smallest nodule 7 mm
Although report suggest this is slightly worse compared to prior imaging in September, not convinced
We discussed how these nodules will need to be followed
Plan for follow-up imaging around
No further testing from pulmonary standpoint in the interim
I asked her to remain compliant with her nebulized therapy. She should continue with her nebulized budesonide, inhaled steroid therapy (Arnuity)
We will add budesonide nebulized therapy during hospital stay
Continue Singulair
She should remain compliant with her CPAP.
I suspect she will need to follow-up with with her voice network engineer
Insulin regimen will need to be modified given poor p.o. intake, loss of appetite
Head of bed elevated in the interim
There is concern regarding her fluid status, she received 1 dose of Lasix
She does have some mild edema in the left leg after recent fall with foot injury
Continue enoxaparin for DVT prophylaxis
Will check left lower extremity Doppler in a.m. to rule out DVT
Reviewed with patient and multiple family members at bedside
We will follow
[2023-11-02] MEDS: DUONEB INH ×2 (15:37→19:53)
[2023-11-02] MEDS: DUONEB 3 ML INH (15:41)
[2023-11-02 17:33] LABS: Glucose - Point of Care 201 mg/dl (70-99)
[2023-11-02] MEDS: LOVENOX 40 MG SC (17:34)
[2023-11-02] MEDS: NOVOLOG FLEXPEN-LOW RESISTANCE SC (17:43)
[2023-11-02 21:29] LABS: Glucose - Point of Care 204 mg/dl (70-99)
[2023-11-03] VITALS (7 sets, daily range): BP systolic 129–142; BP diastolic 61–77; BMI 26.2
[2023-11-03] MEDS: TYLENOL 650 MG PO ×2 (04:46→21:33)
[2023-11-03] MEDS: CORGARD 40 MG PO (07:22)
[2023-11-03] MEDS: PROZAC 10 MG PO (07:23)
[2023-11-03] MEDS: NORVASC 7.5 MG PO (07:23)
[2023-11-03] MEDS: COZAAR 50 MG PO (07:23)
[2023-11-03] MEDS: LIPITOR 40 MG PO (07:23)
[2023-11-03] MEDS: PROTONIX 40 MG PO (07:23)
[2023-11-03] MEDS: SINGULAIR 10 MG PO (07:23)
[2023-11-03] MEDS: ELAVIL PO (07:24)
[2023-11-03] MEDS: NOVOLOG FLEXPEN-LOW RESISTANCE 2 UNITS SC (07:29)
[2023-11-03 07:30] LABS: Glucose - Point of Care 202 mg/dl (70-99)
[2023-11-03 07:32] LABS: Hematocrit 28.3 % (37.0-47.0); Hemoglobin 9.1 g/dL (12.0-16.0); Mean Corp Hgb Conc. 32.2 g/dL (33.0-37.0); Mean Corpuscular Hgb 26.1 pg (27.0-31.0); Mean Corpuscular Volume 81.3 fL (81.0-99.0); Mean Platelet Volume 8.9 fL (7.4-10.4); Platelet Count 331 10^3/uL (130-400); Red Blood Cell Count 3.48 10^6/uL (4.20-5.40); Red Cell Dist. Width 18.7 % (11.5-14.5)
[2023-11-03] MEDS: PULMICORT 0.5 MG INH ×2 (08:07→19:23)
[2023-11-03] MEDS: DUONEB 3 ML INH ×2 (08:07→19:23)
[2023-11-03 08:10] LABS: Blood Urea Nitrogen 13 mg/dl (7-17); Carbon Dioxide 29 mmol/L (22-30); Estimated Creatinine Clearance 71 ml/min; Potassium 3.8 mmol/L (3.5-5.1); eGFR > 60.00
[2023-11-03 08:25] LABS: Calcium 9.5 mg/dl (8.4-10.2); Chloride 101 mmol/L (98-107); Glucose 184 mg/dl (70-99); Sodium 137 mmol/L (135-145)
--- NOTE | 2023-11-03 08:50 | W.PN.PUL3 ---
Today's Communication / Plan
-
Continue budesonide/DuoNebs twice a day
Resume rhinitis therapy, CPAP therapy as outpatient
Ongoing GI workup
Follow-up CT chest regarding nodules
Assessment
-
73-year-old female with history of chronic cough, history of bronchiolitis, rhinitis/sinusitis, sleep apnea on CPAP therapy presents with acute hypoglycemia. Patient has had a poor appetite, weight loss, abdominal discomfort, diarrhea over the past
few weeks. She was found to have a blood sugar of 28, given D10 in the field. She also describes shortness of breath and worsening cough. For this reason she had a CT chest which we are asked to comment on
Multiple pulmonary nodules per CT chest, largest 7 mm
Minimally changed compared to September 2023
New compared to 2021
Followed as outpatient
Acute hypoglycemia, blood sugar 28
Required D10 in the field
Poor p.o. intake over the past few weeks
History of insulin-dependent diabetes
Follows endocrine ([facility])
Anemia
Nonspecific GI symptoms
Abdominal discomfort, early satiety, diarrhea
Conditions present prior to admission
Obstructive sleep apnea on CPAP
Chronic rhinitis/bronchiolitis/sinusitis
History of sinus surgery
Followed by ENT ([facility])
Improved FEV1 since 2018 on nebulized therapy
GERD, Fernandez's esophagitis per history
Plan/recommendations
Patient has a variety of complaints, primarily GI
Chest exam with minimal wheeze
Workup pending, sees Dr. Jones as outpatient
Abdominal CT August 2023 with mild peripancreatic edema
Abdominal ultrasound small volume ascites, diffuse fatty liver
Doppler study left leg negative for DVT
Reviewed CT chest. Scattered pulmonary nodules, too small for further workup, smallest nodule 7 mm
Although report suggest this is slightly worse compared to prior imaging in September, not convinced
We discussed how these nodules will need to be followed
Plan for follow-up imaging around
No further testing from pulmonary standpoint in the interim
Patient has stopped all of her medications as outpatient and that help with her chronic cough
I asked her to remain compliant with her nebulized therapy. She should continue with her nebulized budesonide, inhaled steroid therapy (Arnuity)
We will add budesonide nebulized therapy during hospital stay
Continue Singulair
She should remain compliant with her CPAP.
Resume rhinitis therapy
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
Insulin regimen will need to be modified given poor p.o. intake, loss of appetite
Head of bed elevated in the interim
There is concern regarding her fluid status, she received 1 dose of Lasix
She does have some mild edema in the left leg after recent fall with foot injury. Doppler study negative for DVT
Continue enoxaparin for DVT prophylaxis
Reviewed with patient and primary service
Subjective Data
-
Date of Service:
Date of Service: November 03, 2023
Subjective:
Patient feels respiratory symptoms are stable. Cough slightly improved, denies hemoptysis, chest tightness. Ongoing GI symptoms noted.
Objective Data
Data Reviewed
Vital Signs / I&O / Oxygen:
Vital Signs
Temp Pulse Resp BP Pulse Ox
98.2 F 74 16 140/70 96
11/03/23 07:00 11/03/23 08:11 11/03/23 08:11 11/03/23 07:23 11/03/23 08:11
Intake and Output
11/02/23 11/03/23 11/04/23
06:59 06:59 06:59
Intake Total 1140 / 1140
Balance 1140 / 1140
SaO2 96
Nasal Cannula flow liters per 2
minute
Physical Exam
General: Comfortable
HEENT: Normocephalic and Anicteric
Cardiovascular: S1-S2, Regular Rhythm, Murmur (n), Rub (n) and Peripheral Edema (Trace left foot)
Respiratory: Wheeze (Minimal), Crackles (n), Rhonchi (n) and Non-Labored Respirations
GI: Soft, Distended and Non Tender
Neurology: Awake, Alert and No Motor Deficits
Skin: Cyanosis (n), Jaundice (n) and Rash (n)
Labs/Micro/Reports
Lab Data
11/03/23 06:49
11/03/23 06:49
[2023-11-03] MEDS: DUONEB INH (11:28)
--- NOTE | 2023-11-03 11:28 | W.PN.HOSP.TC ---
Today's Communication/Plan
-
replete Mag
wean off oxygen if able
anticipate DC tomorrow on oral lasix
Lantus 20 units qhs - monitor BGL
adjust DM regimen on DC
Assessment / Plan
Assessment / Plan
10/03/23 CT Chest W/o Iv Contrast
- Numerous scattered tiny pulmonary nodules throughout all lobes, new from prior exam 07/22/2021. Given the patient's history, these are suspicious for tiny metastases, less likely infectious/inflammatory nodules. Recommend continued attention on a
short-term follow-up noncontrast CT chest in 6-8 weeks.
- Of note, the nodules are below PET imaging resolution
CT CHEST
IMPRESSION:
Again seen are numerous subcentimeter pulmonary nodules which have a lower lobe predominance and are overall slightly increased in size from prior. Findings are most suspicious for pulmonary metastases.
There is new perisplenic and perihepatic free fluid in the upper abdomen.
Abdominal US
IMPRESSION: Small volume ascites.
Pancreas, abdominal aorta and IVC significantly obscured, most likely by overlying bowel gas.
Findings suggesting diffuse fatty liver.
Normal directional blood flow in the hepatic and portal veins.
TTE 11/02/23
CONCLUSIONS
Normal biventricular size and systolic function without regional wall motion
abnormality.
No significant valvular disease.
No prior study available for comparison.
ASSESSMENT & PLAN
Severe hypoglycemia in setting of insulin use, Glimepiride and decreased PO intake
IDDM
- A1c 5.8 - risk for hypoglycemia
- s/p D5, BGL now 200's
- resume Lantus at lower dosing (takes Levemir 42 units q hs at home - increase to 20 units qhs tonight)
- hold Glimepiride, metformin and standing pre-meal Novolog
Hypoxic Resp Insufficiency
-patient appears overloaded on exam with elevated JVP on 11/01 s/p one dose lasix with significant response
-patient feels breathing and appetite improved
-HFpEF acute exacerbation
-TTE WNL
-will likely DC on oral lasix (starting tomorrow after Mag repleted)
Hypomagnesemia
-replete
Known HX abn CT for numerous scattered tiny pulmonary nodules
-repeat CT shows numerous nodules overall slightly increased in size from prior, findings most suspicious for pulmonary metastases
-appreciate pulm eval - Plan for follow-up imaging around
Decreased Appetite
Mild Ascites
She has scheduled MRI Abdomen and EGD/[place] as outpatient -abdominal US with small ascites - will continue with outpatient work-up (discussed with Dr. Cain)
Essential HTN
- currently normotensive
- cont. Amlodipine, Losartan and Nadolol
HLD
- on Atorvastatin
Depression
- cont. Fluoxetine
DVT Px: LMWH
Code: Full code
IP TLM
Anticipated Discharge: 24 - 48 hours
Subjective/Interval History
-
Date of Service: November 03, 2023
feels appetite improving
urinated a lot yesterday
weaning down oxygen
Objective Data
-
Labs:
Laboratory Results
11/03/23
06:49
WBC 6.0
Hgb 9.1 L
Hct 28.3 L
Plt Count 331
Sodium 137
Potassium 3.8
Chloride 101
Carbon Dioxide 29
BUN 13
Creatinine 0.5 L
Glucose 184 H
Calcium 9.5
Vital Signs:
Vital Signs
Temp Pulse Resp BP Pulse Ox
98.2 F 72 20 129/61 90
11/03/23 11:00 11/03/23 11:00 11/03/23 11:00 11/03/23 11:00 11/03/23 11:00
I&O
11/02/23 11/03/23 11/04/23
06:59 06:59 06:59
Intake Total 1140 / 1140
Balance 1140 / 1140
Review of Systems
-
History Source: Patient
All other systems: Reviewed and negative
Physical Exam
-
General: No Apparent Distress
HEENT: PERRLA
Respiratory: Clear to Auscultation
Cardiac: S1/S2; Negative JVD
GI: Soft and Nontender
Musculoskeletal: No Edema
Skin: Warm and Dry; Negative Rash
Neuro: AO x 3
Psych: Calm
Data Reviewed
-
Diagnostic Radiology: Report Reviewed by me
Labs: Labs Reviewed by me
[2023-11-03 11:35] LABS: Glucose - Point of Care 250 mg/dl (70-99)
[2023-11-03] MEDS: NOVOLOG FLEXPEN-LOW RESISTANCE 3 UNITS SC (12:18)
[2023-11-03] MEDS: MAGNESIUM SULFATE 100 IV (12:19)
[2023-11-03 16:42] LABS: Glucose - Point of Care 327 mg/dl (70-99)
[2023-11-03] MEDS: NOVOLOG FLEXPEN-LOW RESISTANCE 4 UNITS SC (16:59)
[2023-11-03] MEDS: LOVENOX 40 MG SC (17:02)
[2023-11-03 19:39] LABS: Magnesium 1.8 mg/dl (1.6-2.3)
[2023-11-03 21:21] LABS: Glucose - Point of Care 296 mg/dl (70-99)
[2023-11-03] MEDS: LANTUS 0.2 UNITS SC (21:33)
[2023-11-04 03:31] VITALS: BP 139/67
[2023-11-04 04:19] VITALS: BMI 26.6
[2023-11-04 07:00] VITALS: BP 146/77
[2023-11-04] MEDS: DUONEB INH (07:43)
[2023-11-04] MEDS: PULMICORT INH (07:43)
[2023-11-04 07:52] LABS: Glucose - Point of Care 216 mg/dl (70-99)
[2023-11-04] MEDS: NORVASC 7.5 MG PO (08:02)
[2023-11-04] MEDS: CORGARD 40 MG PO (08:03)
[2023-11-04] MEDS: PROTONIX 40 MG PO (08:03)
[2023-11-04] MEDS: COZAAR 50 MG PO (08:03)
[2023-11-04] MEDS: PROZAC 10 MG PO (08:03)
[2023-11-04] MEDS: LIPITOR 40 MG PO (08:03)
[2023-11-04] MEDS: SINGULAIR 10 MG PO (08:04)
[2023-11-04] MEDS: NOVOLOG FLEXPEN-LOW RESISTANCE 2 UNITS SC (08:04)
[2023-11-04] MEDS: ELAVIL 25 MG PO (08:05)
[2023-11-04 08:57] LABS: Blood Urea Nitrogen 13 mg/dl (7-17); Calcium 9.2 mg/dl (8.4-10.2); Carbon Dioxide 29 mmol/L (22-30); Chloride 99 mmol/L (98-107); Estimated Creatinine Clearance 71 ml/min; Glucose 218 mg/dl (70-99); Magnesium 1.4 mg/dl (1.6-2.3); Potassium 3.9 mmol/L (3.5-5.1); Sodium 135 mmol/L (135-145); eGFR > 60.00
--- NOTE | 2023-11-04 10:21 | W.PN.PUL3 ---
Today's Communication / Plan
-
Resume outpatient rhinitis and bronchitis regimen
Nebulized therapy
Head of bed elevated
Outpatient follow-up with endocrine, GI
Continue CPAP
We will sign off. Please call with questions
Assessment
-
73-year-old female with history of chronic cough, history of bronchiolitis, rhinitis/sinusitis, sleep apnea on CPAP therapy presents with acute hypoglycemia. Patient has had a poor appetite, weight loss, abdominal discomfort, diarrhea over the past
few weeks. She was found to have a blood sugar of 28, given D10 in the field. She also describes shortness of breath and worsening cough. For this reason she had a CT chest which we are asked to comment on
Multiple pulmonary nodules per CT chest, largest 7 mm
Minimally changed compared to September 2023
New compared to 2021
Followed as outpatient
Acute hypoglycemia, blood sugar 28
Required D10 in the field
Poor p.o. intake over the past few weeks
History of insulin-dependent diabetes
Follows endocrine ([facility])
Anemia
Nonspecific GI symptoms
Abdominal discomfort, early satiety, diarrhea
Conditions present prior to admission
Obstructive sleep apnea on CPAP
Chronic rhinitis/bronchiolitis/sinusitis
History of sinus surgery
Followed by ENT ([facility])
Improved FEV1 since 2019 on nebulized therapy
GERD, Fernandez's esophagitis per history
Plan/recommendations
Patient has a variety of complaints, primarily GI
Chest exam with minimal wheeze
Workup pending, sees Dr. Jones as outpatient
Abdominal CT August 2023 with mild peripancreatic edema
Abdominal ultrasound small volume ascites, diffuse fatty liver
Doppler study left leg negative for DVT
Reviewed CT chest. Scattered pulmonary nodules, too small for further workup, smallest nodule 7 mm
Although report suggest this is slightly worse compared to prior imaging in September, not convinced
We discussed how these nodules will need to be followed
Plan for follow-up imaging around
No further testing from pulmonary standpoint in the interim
Patient has stopped all of her medications as outpatient and that help with her chronic cough
I asked her to remain compliant with her nebulized therapy. She should continue with her nebulized budesonide, inhaled steroid therapy (Arnuity)
We will add budesonide nebulized therapy during hospital stay
Continue Singulair
She should remain compliant with her CPAP.
Resume rhinitis therapy
I suspect she will need to follow-up with with her agile test lead
Insulin regimen will need to be modified given poor p.o. intake, loss of appetite
Head of bed elevated in the interim
There is concern regarding her fluid status, she received 1 dose of Lasix
She does have some mild edema in the left leg after recent fall with foot injury. Doppler study negative for DVT
Continue enoxaparin for DVT prophylaxis
Reviewed with patient and primary service
Outpatient follow-up in December 2023. Information left in chart
Disposition efforts noted
We will sign off. Please call with questions
Subjective Data
-
Date of Service:
Date of Service: November 04, 2023
Subjective:
Patient is feeling better. Denies significant cough, chest pain, shortness of breath. Ambulating in the room on room air
Objective Data
Data Reviewed
Vital Signs / I&O / Oxygen:
Vital Signs
Temp Pulse Resp BP Pulse Ox
98.2 F 81 16 146/77 90
11/04/23 07:00 11/04/23 08:02 11/04/23 07:00 11/04/23 08:02 11/04/23 07:00
Intake and Output
11/03/23 11/04/23 11/05/23
06:59 06:59 06:59
Intake Total 1140 / 1140 1360 / 1360
Balance 1140 / 1140 1360 / 1360
SaO2 90
Nasal Cannula flow liters per 2
minute
Physical Exam
General: Comfortable
HEENT: Normocephalic and Anicteric
Cardiovascular: S1-S2, Regular Rhythm, Murmur (n), Rub (n) and Peripheral Edema (Trace left foot)
Respiratory: Wheeze (Minimal), Crackles (n), Rhonchi (n) and Non-Labored Respirations
GI: Soft, Distended and Non Tender
Neurology: Awake, Alert and No Motor Deficits
Skin: Cyanosis (n), Jaundice (n) and Rash (n)
Labs/Micro/Reports
Lab Data
11/03/23 06:49
11/04/23 07:01
[2023-11-04 11:00] VITALS: BP 120/55
--- NOTE | 2023-11-04 11:32 | W.PN.HOSP.TC ---
Today's Communication/Plan
-
OK for DC today
Assessment / Plan
Assessment / Plan
10/03/23 CT Chest W/o Iv Contrast
- Numerous scattered tiny pulmonary nodules throughout all lobes, new from prior exam 07/22/2021. Given the patient's history, these are suspicious for tiny metastases, less likely infectious/inflammatory nodules. Recommend continued attention on a
short-term follow-up noncontrast CT chest in 6-8 weeks.
- Of note, the nodules are below PET imaging resolution
CT CHEST
IMPRESSION:
Again seen are numerous subcentimeter pulmonary nodules which have a lower lobe predominance and are overall slightly increased in size from prior. Findings are most suspicious for pulmonary metastases.
There is new perisplenic and perihepatic free fluid in the upper abdomen.
Abdominal US
IMPRESSION: Small volume ascites.
Pancreas, abdominal aorta and IVC significantly obscured, most likely by overlying bowel gas.
Findings suggesting diffuse fatty liver.
Normal directional blood flow in the hepatic and portal veins.
TTE 11/02/23
CONCLUSIONS
Normal biventricular size and systolic function without regional wall motion
abnormality.
No significant valvular disease.
No prior study available for comparison.
ASSESSMENT & PLAN
Severe hypoglycemia in setting of insulin use, Glimepiride and decreased PO intake
IDDM
- A1c 5.8 - risk for hypoglycemia
- s/p D5, BGL now 200's
- resume Lantus at lower dosing (takes Levemir 42 units q hs at home - increase to 30 units qhs tonight)
- resume metofrmin and pre-meal - hold Glimepiride
Hypoxic Resp Insufficiency
-patient appears overloaded on exam with elevated JVP on 11/01 s/p one dose lasix with significant response
-patient feels breathing and appetite improved
-HFpEF acute exacerbation
-TTE WNL
-DC on oral lasix
Hypomagnesemia
-replete
Known HX abn CT for numerous scattered tiny pulmonary nodules
-repeat CT shows numerous nodules overall slightly increased in size from prior, findings most suspicious for pulmonary metastases
-appreciate pulm eval - Plan for follow-up imaging around
Decreased Appetite
Mild Ascites
She has scheduled MRI Abdomen and EGD/Venus as outpatient -abdominal US with small ascites - will continue with outpatient work-up (discussed with Dr. Cain)
Essential HTN
- currently normotensive
- cont. Amlodipine, Losartan and Nadolol
HLD
- on Atorvastatin
Depression
- cont. Fluoxetine
DVT Px: LMWH
Code: Full code
IP TLM
Anticipated Discharge: Today
Subjective/Interval History
-
Date of Service: November 04, 2023
feeling well
no new complaints
Objective Data
-
Labs:
Laboratory Results
11/04/23
07:01
Sodium 135
Potassium 3.9
Chloride 99
Carbon Dioxide 29
BUN 13
Creatinine 0.5 L
Glucose 218 H
Calcium 9.2
Vital Signs:
Vital Signs
Temp Pulse Resp BP Pulse Ox
98.2 F 81 16 146/77 90
11/04/23 07:00 11/04/23 08:02 11/04/23 07:00 11/04/23 08:02 11/04/23 07:00
I&O
11/03/23 11/04/23 11/05/23
06:59 06:59 06:59
Intake Total 1140 / 1140 1360 / 1360
Balance 1140 / 1140 1360 / 1360
Review of Systems
-
History Source: Patient
All other systems: Reviewed and negative
Physical Exam
-
General: No Apparent Distress
HEENT: PERRLA
Respiratory: Clear to Auscultation
Cardiac: S1/S2; Negative JVD
GI: Soft and Nontender
Musculoskeletal: No Edema
Skin: Warm and Dry; Negative Rash
Neuro: AO x 3
Psych: Calm
Data Reviewed
-
Diagnostic Radiology: Report Reviewed by me
Labs: Labs Reviewed by me
[2023-11-04] MEDS: LASIX 20 MG PO (11:45)
[2023-11-04] MEDS: GLUCOPHAGE 500 MG PO (11:46)
--- NOTE | 2023-11-04 11:49 | W.DS.TRANS ---
DC Summary - Lemon Picker
-
Discharge Instructions:
Discharge Diagnosis/Procedures fluid overload, hypoglycemia, pulmonary nodules
Diet Low Sodium
Activity As tolerated
Driving Restrictions As prior to admission
Bathing Restrictions None
Blood Work BMP and Magnesium in one week
Specialty Instructions Weigh Daily
Instructions: *PCP/Other Sandblaster Paint Sprayer Heart Failure Instructions
Stand-Alone Forms:
Changes to Home Medications: Yes
Discharge Medications:
DC Medications w/original date entered in [facility]
Novolog Mix 70-30 U-100 Insuln 11/02/23
amitriptyline 25 mg tablet 25 mg PO DAILY 11/02/23
amlodipine 2.5 mg tablet 7.5 mg PO DAILY 11/02/23
atorvastatin 40 mg tablet 40 mg PO DAILY 11/02/23
fluoxetine 10 mg tablet 10 mg PO DAILY 11/02/23
losartan 50 mg tablet 50 mg PO DAILY 11/02/23
metformin 500 mg tablet 500 mg PO BID 11/02/23
montelukast 10 mg tablet 10 mg PO DAILY 11/02/23
nadolol 40 mg tablet 40 mg PO DAILY 11/02/23
nebulizer accessories 11/02/23
omeprazole 40 mg capsule,delayed release 40 mg PO DAILY 11/02/23
fluticasone furoate 100 mcg/actuation blister powder for inhalation (Arnuity Ellipta) 1 inh inhalation DAILY 11/04/23
furosemide 20 mg tablet 20 mg PO DAILY #30 tabs 11/04/23
insulin detemir U-100 100 unit/mL (3 mL) subcutaneous pen (Levemir FlexPen) 30 unit (0.3 mL) SC HS #0 mL 11/04/23
ipratropium 20 mcg-albuterol 100 mcg/actuation mist for inhalation (Combivent Respimat) 1 puff inhalation Q6H PRN shortness of breath or wheezing #4 grams 11/04/23
Home Medication Changes
For Diabetes:
Stop Glimepiride
Decrease Levemir from 42 units in evening to 30 units in evenings
Continue Metformin
*This to be further adjusted by Dr. Hayward based on blood glucose readings
You are newly started on lasix 20mg daily to help keep fluid off. Hold dosing if you feel lightheaded. Your labs will be monitored by your PCP.
Buy Magnesium Glycinate over the counter (100- 200mg) to take daily. Do not take if worsens diarrhea.
Pending Results: No
[2023-11-04] MEDS: MAGNESIUM SULFATE 50 IV ×2 (11:56→13:49)
[2023-11-04 12:01] LABS: Glucose - Point of Care 324 mg/dl (70-99)
[2023-11-04] MEDS: NOVOLOG FLEXPEN-LOW RESISTANCE 4 UNITS SC (12:02)
--- NOTE | 2023-11-04 13:23 | W.DCSUMMARY ---
Discharge Summary
Discharge Data
Date of Admission: 11/02/23
Date of Discharge: 11/04/23
-
Pending Results: No
Hospital Course
Discharging Physician : Dr. Mary Coats
Disposition : Home
Primary care physician : Dr. Chris Kellogg
Principal Discharge diagnosis : Hypoglycemia, Pulmonary Nodules, Heart Failure preserved Ejection Fraction, Hypomagnesemia, Small Ascites
Hospital Course :
Ms. Joceline Torres is a 73 yo woman with hx IDDM, outpatient work-up of pulmonary nodules and outpatient work-up of decreased appetite/diarrhea presents to the ER for persistent hypoglycemia. Patient has a continuous glucose monitor. She ate candy
and drank soda without improvement, given D10 by EMS with improvement to 92 from 28. Patient also complained of cough and shortness of breath. Triage vitals significant for hypoxica requiring supplemental O2. Labs with WBC 8.8, Hg 9.2, Na 137, Cr
0.4, Glucose 114. Chest CT with numerous pulmonary nodules similar to prior, overall slightly increased in size. She was admitted to medicine with Pulmonary consulting.
Regarding hypoglycemia, this is in the setting of decreased appetite. Her A1c is 5.8%. Adjustments on discharge include stopping Glimepiride and decreasing Levemir from 42 units qhs to 30 units qhs. She will follow up closely with her
soccer commentator, Dr. Hayward.
Regarding pulmonary nodules, this will be continued to be followed by Dr. Herrera as outpatient.
CT Chest showed new perisplenic and perihepatic free fluid, followed by abdominal US which showed fatty liver and small volume ascites. She had an abdominal CT in August which showed small amount of ascites in setting of mild peripancreatic edema and
has plans for outpatient MRI end of this month. She also has plans for EGD/Colonoscopy given report of decreased appetite and diarrhea (unable to collect stool sample here).
Patient noted to be volume overloaded with JVD. She was given IV lasix with good response. Improvement in breathing and appetite. TTE without significant abnormality. She is discharged on lasix 20mg PO QD for treatment of diastolic heart
failure.
Magnesium was low in-house and repleted. She is told to take oral magnesium as outpatient but stop if worsens diarrhea.
Time spent on discharge was 35 minutes.
Important imaging findings :
CT Chest 11/02/23
IMPRESSION:
Again seen are numerous subcentimeter pulmonary nodules which have a lower lobe predominance and are overall slightly increased in size from prior. Findings are most suspicious for pulmonary metastases.
There is new perisplenic and perihepatic free fluid in the upper abdomen.
Abdominal US 11/02/23
IMPRESSION: Small volume ascites.
Pancreas, abdominal aorta and IVC significantly obscured, most likely by overlying bowel gas.
Findings suggesting diffuse fatty liver.
Normal directional blood flow in the hepatic and portal veins.
TTE 11/02/23
CONCLUSIONS
Normal biventricular size and systolic function without regional wall motion
abnormality.
No significant valvular disease.
No prior study available for comparison.
LE US 11/03/23
IMPRESSION:
No sonographic evidence for LEFT lower extremity deep venous thrombosis.
Procedure findings :
Discharge Plan
-
Patient Disposition: Home (Routine Discharge)
Discharge Diagnosis/Procedures: fluid overload, hypoglycemia, pulmonary nodules
Diet: Low Sodium
Activity: As tolerated
Driving Restrictions: As prior to admission
Bathing Restrictions: None
Blood Work: BMP and Magnesium in one week
Specialty Instructions: Weigh Daily- Call MD for wt gain/loss 3 lbs overnight/5 lbs in 1 week
Activity Restrictions/Additional Instructions:
Please follow up with your primary care doctor within one week
Follow through Abdomen MRI and Endoscopy/Colonoscopy as planned
Follow up with Dr. Herrera in December as planned
Follow up with Dr. Hayward to further adjust diabetic regimen
Instructions: *PCP/Other Solar Manufacturer'S Representative Heart Failure Instructions
Referrals:
Rafi Herrera MD [Active] - (DEC 2023)
Booker Jones MD [Active] -
Juana Hayward MD [Consulting Staff] - in one to two weeks
UNKNOWN - PT DOES,NOT KNOW [Unknown Provider] - in less than 1 week
Additional Discharge Medication Instructions: For Diabetes:
Stop Glimepiride
Decrease Levemir from 42 units in evening to 30 units in evenings
Continue Metformin
*This to be further adjusted by Dr. Hayward based on blood glucose readings
You are newly started on lasix 20mg daily to help keep fluid off. Hold dosing if you feel lightheaded. Your labs will be monitored by your PCP.
Buy Magnesium Glycinate over the counter (100- 200mg) to take daily. Do not take if worsens diarrhea.
Prescriptions:
New
furosemide 20 mg Tablet
20 mg PO DAILY Qty: 30 0RF
Combivent Respimat 20-100 mcg/actuation mist
1 puff inhalation Q6H PRN (Reason: shortness of breath or wheezing) Qty: 4 0RF
Continued
losartan 50 mg Tablet
50 mg PO DAILY
amlodipine 2.5 mg Tablet
7.5 mg PO DAILY
(DME) nebulizer accessories Kit
MISCELLANEOUS
Rx Instructions:
BID
atorvastatin 40 mg Tablet
40 mg PO DAILY
metformin 500 mg Tablet
500 mg PO BID
fluoxetine 10 mg Tablet
10 mg PO DAILY
omeprazole 40 mg Capsule,Delayed Release(Dr/Ec)
40 mg PO DAILY
amitriptyline 25 mg Tablet
25 mg PO DAILY
nadolol 40 mg Tablet
40 mg PO DAILY
montelukast 10 mg Tablet
10 mg PO DAILY
Novolog Mix 70-30 U-100 Insuln
Arnuity Ellipta 100 mcg/actuation Blister With Device
1 inh INHALATION DAILY
Changed
Levemir FlexPen 100 unit/mL (3 mL) Insulin Pen
30 unit SC HS Qty: 0 0RF
Discontinued
glimepiride 1 mg Tablet
1 mg PO DAILY
Discharge Orders:
Discharge Patient (As Directed); Ordered 11/04/23
Ordered By: Mary Coats
Discharge Date and Time
Print Language: THAI
[2023-11-04 15:00] VITALS: BP 120/48
== END 2023-11-04 16:26 | disposition home or self-care (01) | DRG 638 ==
LOC: 4 EAST ACU 03:59
PROVIDERS: Student in an Organized Health Care Education/Training Program; ADMITTING PHYSICIAN Internal Medicine; ATTENDING PHYSICIAN Student in an Organized Health Care Education/Training Program; CONSULT PHYSICIAN Internal Medicine Critical Care Medicine; EMERGENCY PHYSICIAN Emergency Medicine; FAMILY PHYSICIAN Family Medicine
DX: E11.649 Type 2 diabetes mellitus with hypoglycemia without coma (principal); R18.8 Other ascites; E83.42 Hypomagnesemia; R91.8 Other nonspecific abnormal finding of lung field; I10 Essential (primary) hypertension; R09.02 Hypoxemia; F32.A Depression, unspecified; Z79.4 Long term (current) use of insulin
CPT/HCPCS: 71046; 71250; 76700; 80048; 80053; 81003; 81015; 82533; 82962; 83036; 83735; 85025; 85027; 87811; 93005; 93306; 93971; 94640; 99285

== ENCOUNTER 2023-11-09 10:58 | Emergency (ER) | payer MEDICARE, OTHER, SELFPAY ==
[2023-11-09 11:05] VITALS: BP 113/55
[2023-11-09 11:30] LABS: % Basophils 0.6 % (0-2); % Eosinophils 0.8 % (0-6); % Immature Granulocytes 0.4 % (0-0.5); % Lymphocytes 20.4 % (20.5-51.1); % Monocytes 14.6 % (1.7-9.3); % Neutrophils 63.2 % (42.2-75.2); Absolute Monocytes 0.7 10^3/uL (0.1-0.6); Absolute Neutrophils 3.1 10^3/uL (1.4-6.5); Hematocrit 27.7 % (37.0-47.0); Hemoglobin 9.2 g/dL (12.0-16.0); Mean Corp Hgb Conc. 33.2 g/dL (33.0-37.0); Mean Corpuscular Hgb 26.5 pg (27.0-31.0); Mean Corpuscular Volume 79.8 fL (81.0-99.0); Mean Platelet Volume 9.2 fL (7.4-10.4); Nucleated Red Blood Cells % 0 %; Platelet Count 242 10^3/uL (130-400); Red Blood Cell Count 3.47 10^6/uL (4.20-5.40); Red Cell Dist. Width 19.5 % (11.5-14.5); White Blood Cell Count 4.9 10^3/uL (4.8-10.8)
[2023-11-09 11:38] LABS: COVID-19 Antigen Positive (Negative)
[2023-11-09 12:06] LABS: ALT (SGPT) 17 U/L (0-35); AST (SGOT) 30 U/L (14-36); Albumin 3.9 g/dl (3.5-5.0); Alkaline Phosphatase 74 U/L (38-126); Blood Urea Nitrogen 19 mg/dl (7-17); Calcium 9.1 mg/dl (8.4-10.2); Carbon Dioxide 24 mmol/L (22-30); Chloride 98 mmol/L (98-107); Glucose 161 mg/dl (70-99); Potassium 4.1 mmol/L (3.5-5.1); Sodium 131 mmol/L (135-145); Total Bilirubin 0.6 mg/dl (0.2-1.3); Total Protein 7.1 g/dl (6.3-8.2); eGFR > 60.00
--- NOTE | 2023-11-09 12:32 | ED.GENMED ---
History of Present Illness
General
Chief Complaint: Breathing Problem
Source: patient
Time Seen by Provider: 11/09/23 12:08
History of Present Illness
History of Present Illness:
73yoF with a history of hypertension, hyperlipidemia, ROSA on CPAP, and diabetes presenting with her for flu-like symptoms that started yesterday. She was recently hospitalized for hypoglycemia and was discharged 5 days ago. She woke up from
a nap yesterday with a fever of 103. She also reports generalized malaise and body aches. She took a home COVID test earlier today which was positive. She checked her oxygen saturation at home which was around 92% and her PCP advised her to go to
the ED for evaluation. Patient reports mild shortness of breath. No chest pain.
Past History
Past History
ED Past Medical History: Cancer, HTN, Hypercholesterolemia and IDDM
ED Past Surgical History: Appendectomy, Gynecological and Other
Social History
Tobacco: Non-smoker
Alcohol: None
Drug: None
Personal:
Living: with family
Phy Exam
General Physical Exam
General Presentation: well appearing and no apparent distress
General age: appears stated age
General Skin: warm and dry
General Habitus: normal
General Mental: alert
Cardiovascular Exam
Cardiovascular Exam: regular rate/rhythm and no edema
Pulmonary Exam
Pulmonary Exam: lungs clear, no respiratory distress, no crackles, no wheezing and other (Speaking in full sentences without difficulty. )
Skin Exam
Skin Exam: normal color and warm/dry
Psychiatric Exam
Psychiatric Exam: normal mood/affect
Scores
Heart Failure Risk
Heart Failure Risk Score: Not Applicable
Course
Orders/Labs/Results
Orders:
Orders
11/09/23 11:16
CMP [Comprehensive Metabolic Panel] Urgent
COVID-19 Antigen Urgent
Source: Nasal Swab
Complete Blood Count/With Diff Urgent
Influenza A+B Rapid Molecular Urgent
GLADYS Source: Nasal Swab
Specimen Description:
Abnormal Lab Results
11/09/23
11:16
RBC 3.47 L 10^6/uL
(4.20-5.40)
Hgb 9.2 L g/dL
(12.0-16.0)
Hct 27.7 L %
(37.0-47.0)
MCV 79.8 L fL
(81.0-99.0)
MCH 26.5 L pg
(27.0-31.0)
RDW 19.5 H %
(11.5-14.5)
Absolute Lymphs (auto) 1.0 L 10^3/uL
(1.2-3.4)
Absolute Monos (auto) 0.7 H 10^3/uL
(0.1-0.6)
Lymphocytes % 20.4 L %
(20.5-51.1)
Monocytes % 14.6 H %
(1.7-9.3)
Sodium 131 L mmol/L
(135-145)
BUN 19 H mg/dl
(7-17)
Glucose 161 H mg/dl
(70-99)
SARS-CoV-2 Antigen Positive A
(Negative)
11/09/23 11:16
11/09/23 11:16
Vital Signs
Initial and Last Documented VS:
Initial Vital Signs
Temp Pulse Resp BP Pulse Ox
99.3 F 85 20 113/55 95
11/09/23 11:05 11/09/23 11:05 11/09/23 11:05 11/09/23 11:05 11/09/23 11:05
Last Documented Vital Signs
Temp Pulse Resp BP Pulse Ox
99.3 F 76 24 114/58 92
11/09/23 11:05 11/09/23 12:35 11/09/23 12:35 11/09/23 12:35 11/09/23 12:35
MDM/Problems Addressed
Differential Diagnosis Includes:
73yoF here with flu-like symptoms x 1 day. Home COVID test positive. Sent in by PCP. She c/o mild dyspnea. Oxygen saturation 95% in triage. Remainder of vitals are normal. She is well-appearing in no acute distress. She is speaking in full
sentences without difficulty. Lungs clear to auscultation. Differential diagnosis includes but is not limited to: COVID, influenza, viral illness, pneumonia
COVID test was sent in triage which is positive. Labs overall unremarkable. Hemoglobin 9.2 which is baseline. Sodium is mildly low at 131. Ambulatory pulse ox performed and she maintained an oxygen saturation of 94% throughout. No indication
for hospitalization at this time. Discussed risks versus benefits of Paxlovid and patient opting for treatment. Discussed with pharmacy. Patient advised to stop her atorvastatin, Advair, and half her amlodipine dose while on Paxlovid. Supportive
care and quarantine discussed. Advised close PCP follow-up and strict ED return precautions were discussed. Patient expressed understanding and is agreeable to plan. She was discharged in stable condition.
*Critical Care Note
Total Time (30-74mins, 75-104mins- exclusive of procedures): Not Applicable
ED Attending Note
-
Portions of this chart may have been created with voice recognition software.� Occasional wrong word or��sound alike� substitutions may have occurred due to the inherent limitations of voice recognition software.
Discharge Plan
Departure
Patient Disposition: Home (Routine Discharge)
Date of Disposition: 11/09/23
Time of Disposition: 13:17
Patient with high blood pressure during this ER visit?: No
Discharge Problem:
COVID-19
Instructions: COVID-19 in adults - Discharge instructions
Prescriptions:
New
Paxlovid 300 mg (150 mg x 2)-100 mg tablets,dose pack
See Rx Instructions .ROUTE .COMPLEX Qty: 30 0RF
Rx Instructions:
take TWO 150 mg tablets of nirmatrelvir with ONE 100 mg tablet of ritonavir twice daily for 5 days
No Action
losartan 50 mg Tablet
50 mg PO DAILY
amlodipine 2.5 mg Tablet
7.5 mg PO DAILY
(DME) nebulizer accessories Kit
MISCELLANEOUS
Rx Instructions:
BID
atorvastatin 40 mg Tablet
40 mg PO DAILY
metformin 500 mg Tablet
500 mg PO BID
fluoxetine 10 mg Tablet
10 mg PO DAILY
omeprazole 40 mg Capsule,Delayed Release(Dr/Ec)
40 mg PO DAILY
amitriptyline 25 mg Tablet
25 mg PO DAILY
nadolol 40 mg Tablet
40 mg PO DAILY
montelukast 10 mg Tablet
10 mg PO DAILY
Novolog Mix 70-30 U-100 Insuln
furosemide 20 mg Tablet
20 mg PO DAILY Qty: 30 0RF
Levemir FlexPen 100 unit/mL (3 mL) Insulin Pen
30 unit SC HS Qty: 0 0RF
Arnuity Ellipta 100 mcg/actuation Blister With Device
1 inh INHALATION DAILY
Combivent Respimat 20-100 mcg/actuation mist
1 puff inhalation Q6H PRN (Reason: shortness of breath or wheezing) Qty: 4 0RF
Referrals:
Chris Kellogg MD [Family Provider] -
Activity Restrictions/Additional Instructions:
Take Paxlovid as prescribed. Do not take atorvastatin, Advair, or any herbal supplements while taking Paxlovid. You should cut your dose of amlodipine in half while on this medication.
Remain in quarantine for 5 days. You may leave quarantine on day 6 if you are fever free for 24 hours. You must wear a mask until day 10.
Drink plenty of fluids and rest. Take Tylenol as needed for fevers.
Please follow-up with your family doctor. Return to the ER with any worsening symptoms or if your oxygen levels drop into the 80s.
Interventions
Interventions:
*Risk Screen - Suicide Last Done: 11/09/23 11:05
*General Assessment Last Done: 11/09/23 11:05
*Neglect/Abuse Screening Last Done: 11/09/23 11:05
*ED COVID-19 Vaccine History Last Done: 11/09/23 11:05
*Nursing Disposition Last Done: 11/09/23 13:25
ED- Pulmonary Assessment Last Done: 11/09/23 12:11
Discharge Date and Time
Discharge Date/Time: 11/09/23 13:25
Print Language: ITALIAN
[2023-11-09 12:35] VITALS: BP 114/58
== END 2023-11-09 13:25 | disposition home or self-care (01) ==
LOC: EMR 10:58
PROVIDERS: EMERGENCY PHYSICIAN Emergency Medicine; FAMILY PHYSICIAN Family Medicine
DX: U07.1 COVID-19 (principal); E11.9 Type 2 diabetes mellitus without complications; E78.00 Pure hypercholesterolemia, unspecified; I10 Essential (primary) hypertension; Z90.49 Acquired absence of other specified parts of digestive tract
CPT/HCPCS: 99283; 80053; 85025; 87502; 87811

== ENCOUNTER → 2023-11-11 10:34 | Outpatient (REF) | payer MEDICARE, OTHER, SELFPAY ==
[2023-11-11 12:05] LABS: ALT (SGPT) 18 U/L (0-35); AST (SGOT) 33 U/L (14-36); Albumin 4.1 g/dl (3.5-5.0); Alkaline Phosphatase 75 U/L (38-126); Blood Urea Nitrogen 29 mg/dl (7-17); Calcium 9.5 mg/dl (8.4-10.2); Carbon Dioxide 26 mmol/L (22-30); Chloride 98 mmol/L (98-107); Glucose 81 mg/dl (70-99); HDL Cholesterol 28 mg/dl; LDL Cholesterol, Calculated 55 mg/dl; Magnesium 1.5 mg/dl (1.6-2.3); Potassium 4.3 mmol/L (3.5-5.1); Sodium 135 mmol/L (135-145); Total Bilirubin 0.5 mg/dl (0.2-1.3); Total Cholesterol 114 mg/dl (50-199); Total Protein 7.2 g/dl (6.3-8.2); Triglyceride 159 mg/dl (10-149); Very Low Density Lipoprotein 31 mg/dl (0-30); eGFR > 60.00
[2023-11-11 12:24] LABS: Protein/creatinine Ratio 0.1; Urine Protein 11 mg/dl
== END ==
LOC: REG 10:34
PROVIDERS: ATTENDING PHYSICIAN Internal Medicine Endocrinology, Diabetes & Metabolism; FAMILY PHYSICIAN Family Medicine; REFERRING PHYSICIAN Student in an Organized Health Care Education/Training Program
DX: E11.9 Type 2 diabetes mellitus without complications (principal); I50.30 Unspecified diastolic (congestive) heart failure
CPT/HCPCS: 36415; 80053; 80061; 82570; 83735; 84156

== ENCOUNTER → 2023-11-14 11:39 | Outpatient (REF) | payer MEDICARE, OTHER, SELFPAY | LOC: PAVMRI 11:39 | PROVIDERS: ATTENDING PHYSICIAN Specialist; FAMILY PHYSICIAN Family Medicine | DX: K85.00 Idiopathic acute pancreatitis without necrosis or infection (principal) | CPT/HCPCS: 74183; A9575 ==

== ENCOUNTER 2023-12-06 06:18 | Day surgery (SDC) | payer MEDICARE, OTHER, SELFPAY ==
[2023-12-06 07:00] VITALS: BMI 25.1
[2023-12-06 07:03] VITALS: BP 147/72
[2023-12-06 07:21] LABS: Glucose - Point of Care 139 mg/dl (70-99)
[2023-12-06 07:43] VITALS: BMI 25.1
[2023-12-06 09:40] VITALS: BP 114/64
[2023-12-06 09:45] VITALS: BP 133/58
[2023-12-06 09:47] LABS: Glucose - Point of Care 122 mg/dl (70-99)
[2023-12-06 10:00] VITALS: BP 137/66
[2023-12-06 10:15] VITALS: BP 122/107
[2023-12-06 10:18] VITALS: BP 126/63
== END 2023-12-06 11:00 | disposition home or self-care (01) ==
LOC: SDS 06:18
PROVIDERS: ATTENDING PHYSICIAN Internal Medicine Gastroenterology
DX: C25.1 Malignant neoplasm of body of pancreas (principal); K31.7 Polyp of stomach and duodenum; R18.8 Other ascites
CPT/HCPCS: 43242; 43251; 43239; 88172; 88173; 88305; 82962; 88177; 88342

== ENCOUNTER → 2023-12-09 06:34 | Day surgery (SDC) | payer MEDICARE, OTHER, SELFPAY ==
[2023-12-09 08:16] LABS: Glucose - Point of Care 203 mg/dl (70-99)
== END ==
LOC: GI 06:34
PROVIDERS: ATTENDING PHYSICIAN Specialist; FAMILY PHYSICIAN Family Medicine
DX: D12.3 Benign neoplasm of transverse colon (principal); K64.4 Residual hemorrhoidal skin tags; R19.7 Diarrhea, unspecified
CPT/HCPCS: 45380; 88305; 82962

== ENCOUNTER → 2023-12-22 14:53 | Outpatient (REF) | payer MEDICARE, OTHER, SELFPAY | LOC: REG 14:53 | PROVIDERS: ATTENDING PHYSICIAN Internal Medicine Gastroenterology; FAMILY PHYSICIAN Family Medicine | DX: K52.9 Noninfective gastroenteritis and colitis, unspecified (principal) | CPT/HCPCS: 36415; 82653 ==

== ENCOUNTER → 2023-12-27 15:31 | Outpatient (REF) | payer MEDICARE, OTHER, SELFPAY ==
[2023-12-27 16:34] LABS: % Basophils 0.3 % (0-2); % Eosinophils 0.5 % (0-6); % Immature Granulocytes 0.6 % (0-0.5); % Lymphocytes 5.9 % (20.5-51.1); % Monocytes 8.4 % (1.7-9.3); % Neutrophils 84.3 % (42.2-75.2); Absolute Eosinophils 0.1 10^3/uL (0-0.7); Absolute Immature Granulocytes 0.1 10^3/uL (0-0.05); Absolute Lymphocytes 0.9 10^3/uL (1.2-3.4); Absolute Monocytes 1.2 10^3/uL (0.1-0.6); Absolute Neutrophils 12.2 10^3/uL (1.4-6.5); Hematocrit 28.1 % (37.0-47.0); Hemoglobin 9.4 g/dL (12.0-16.0); Mean Corp Hgb Conc. 33.5 g/dL (33.0-37.0); Mean Corpuscular Hgb 28.4 pg (27.0-31.0); Mean Corpuscular Volume 84.9 fL (81.0-99.0); Nucleated Red Blood Cells % 0 %; Red Blood Cell Count 3.31 10^6/uL (4.20-5.40); Red Cell Dist. Width 18.4 % (11.5-14.5); White Blood Cell Count 14.4 10^3/uL (4.8-10.8)
[2023-12-27 16:38] LABS: INR 1.45; PT 17.5 Sec (11.4-14.6)
[2023-12-27 16:39] LABS: APTT 55.1 Sec (23.4-35.0)
[2023-12-27 16:42] LABS: ALT (SGPT) 21 U/L (0-35); AST (SGOT) 47 U/L (14-36); Albumin 3.1 g/dl (3.5-5.0); Alkaline Phosphatase 144 U/L (38-126); Blood Urea Nitrogen 33 mg/dl (7-17); Calcium 9.6 mg/dl (8.4-10.2); Carbon Dioxide 22 mmol/L (22-30); Chloride 96 mmol/L (98-107); Glucose 102 mg/dl (70-99); HDL Cholesterol 13 mg/dl; Iron 28 ug/dl (37-170); LDL Cholesterol, Calculated 79 mg/dl; Potassium 4.8 mmol/L (3.5-5.1); Sodium 134 mmol/L (135-145); Total Bilirubin 0.7 mg/dl (0.2-1.3); Total Cholesterol 115 mg/dl (50-199); Total Protein 6.8 g/dl (6.3-8.2); Triglyceride 116 mg/dl (10-149); Very Low Density Lipoprotein 23 mg/dl (0-30); eGFR > 60.00
[2023-12-27 17:03] LABS: Platelet Count 671 10^3/uL (130-400)
[2023-12-27 17:12] LABS: CEA 2.66 ng/ml
== END ==
LOC: REG 15:31
PROVIDERS: ATTENDING PHYSICIAN Internal Medicine Hematology & Oncology; FAMILY PHYSICIAN Family Medicine; REFERRING PHYSICIAN Surgery
DX: C25.1 Malignant neoplasm of body of pancreas (principal); E11.649 Type 2 diabetes mellitus with hypoglycemia without coma; R79.1 Abnormal coagulation profile
CPT/HCPCS: 36415; 80053; 80061; 82378; 82728; 83540; 84466; 85025; 85610; 85730; 86301

== ENCOUNTER 2023-12-31 16:50 | Inpatient (IN) | payer MEDICARE, OTHER, SELFPAY ==
[2023-12-31 12:42] VITALS: BP 122/60
[2023-12-31 12:51] VITALS: BMI 24.4
[2023-12-31 13:00] VITALS: BP 96/52
--- NOTE | 2023-12-31 13:06 | ED.GENMED ---
History of Present Illness
General
Chief Complaint: Weakness
Source: patient
Exam Limitations: none
Time Seen by Provider: 12/31/23 12:45
Nursing documentation reviewed up to this point in time: agreed with
History of Present Illness
History of Present Illness:
Patient is a 73-year-old female with past medical history of breast cancer hypertension hyperlipidemia breast reconstruction surgery recent diagnosis of pancreatic cancer 2 weeks ago presents to the ER from home for weakness. She does have
abdominal distention. she is not eating/drinking. She presents to the ER with paperwork from [place] [facility]. She reports treatment has not started yet.
Patient has chronic diarrhea. she denies any urinary urgency or frequency. Denies any fevers.
It is documented the patient recent colonoscopy in November biopsies were taken to rule out microscopic colitis
Past History
Past History
ED Past Medical History: Cancer, HTN, Hypercholesterolemia and IDDM
ED Past Surgical History: Appendectomy, Gynecological and Other
Social History
Tobacco: Non-smoker
Alcohol: None
Drug: None
Personal:
Living: with family
Review of Systems
Review of Systems
Allergies reviewed?: Yes
Other source history: family
All Other Systems: ROS reviewed and negative except as documented in HPI and ROS
Constitutional: Reports fatigue
Respiratory: Reports no symptoms
Cardiac: Reports no symptoms
ABD/GI: Reports no symptoms
Musculoskeletal: Reports no symptoms
Skin: Reports no symptoms
Neurological: Reports no symptoms
Psychiatric: Reports no symptoms
Phy Exam
General Physical Exam
General Presentation: no apparent distress
General age: appears older than age
General Skin: warm and dry
General Habitus: elderly
General Mental: alert
General Hydration: dry mucous membranes
Cardiovascular Exam
Cardiovascular Exam: regular rate/rhythm
Pulmonary Exam
Pulmonary Exam: lungs clear and no respiratory distress
Gastrointestinal Exam
Gastrointestinal Exam: soft and other (Distended)
Neurological Exam
Neurological Exam: alert and oriented x3
Musculoskeletal Exam
Musculoskeletal Exam: full ROM
Skin Exam
Skin Exam: normal color and warm/dry
Psychiatric Exam
Psychiatric Exam: normal mood/affect
Course
Orders/Labs/Results
Orders:
Orders
12/31/23 13:04
EKG [Electrocardiogram (*1)] Urgent
Reason for Study: Chest Pain
EKG- Treatment ONCE
12/31/23 13:05
Complete Blood Count/With Diff Urgent
12/31/23 13:07
Venous Blood Gas Urgent
%Oxygen/Room Air: 2 liters
12/31/23 13:32
0.9% Sodium Chloride 1000 ml [Nss] 1,000 ml IV BOLUS
12/31/23 14:41
Comprehensive Metabolic Panel Urgent
NT-proBNP Urgent
12/31/23 14:50
Chest [CR Chest - 2 Views ] Urgent
Comment:
Reason For Exam: weak
12/31/23 15:20
Straight cath- Treatment ONCE
UA Reflex to Culture [Urinalysis Reflex To Culture] Urgent
Abnormal Lab Results
12/31/23 12/31/23 12/31/23
13:05 13:07 14:41
WBC 12.7 H 10^3/uL
(4.8-10.8)
RBC 3.28 L 10^6/uL
(4.20-5.40)
Hgb 8.8 L g/dL
(12.0-16.0)
Hct 26.0 L %
(37.0-47.0)
MCV 79.3 L fL
(81.0-99.0)
MCH 26.8 L pg
(27.0-31.0)
RDW 18.8 H %
(11.5-14.5)
Plt Count 782 H 10^3/uL
(130-400)
Abs Immat Gran (auto) 0.1 H 10^3/uL
(0-0.05)
Absolute Neuts (auto) 11.1 H 10^3/uL
(1.4-6.5)
Absolute Lymphs (auto) 0.5 L 10^3/uL
(1.2-3.4)
Absolute Monos (auto) 1.0 H 10^3/uL
(0.1-0.6)
Immature Gran % 0.8 H %
(0-0.5)
Neutrophils % 87.5 H %
(42.2-75.2)
Lymphocytes % 3.7 L %
(20.5-51.1)
VBG pH 7.20 L
(7.32-7.43)
VBG HCO3 18.8 L mmol/L
(22-27)
Sodium 127 L mmol/L
(135-145)
Potassium 5.8 H mmol/L
(3.5-5.1)
Chloride 96 L mmol/L
(98-107)
Carbon Dioxide 16 L mmol/L
(22-30)
BUN 83 H mg/dl
(7-17)
Creatinine 2.6 H mg/dL
(0.6-1.0)
Glucose 174 H mg/dl
(70-99)
Total Protein 5.9 L g/dl
(6.3-8.2)
Albumin 2.6 L g/dl
(3.5-5.0)
12/31/23 13:05
12/31/23 14:41
Vital Signs
Initial and Last Documented VS:
Initial Vital Signs
Temp Pulse Resp BP Pulse Ox
97.4 F 90 22 122/60 74
12/31/23 12:42 12/31/23 12:42 12/31/23 12:42 12/31/23 12:42 12/31/23 12:42
Last Documented Vital Signs
Temp Pulse Resp BP Pulse Ox
97.4 F 90 22 122/60 96
12/31/23 12:42 12/31/23 12:42 12/31/23 12:42 12/31/23 12:42 12/31/23 12:59
Server Manager consulted with Physician
Server Manager consulted with physician?: Yes
Name of Physician Consulted: los
MDM/Problems Addressed
Differential Diagnosis Includes:
Not limited to dehydration, infection and anemia
MDM/Problems Addressed:
Patient is a 73-year-old female with recent diagnosis of pancreatic cancer has upcoming appointment at [facility] this Tuesday however patient has not had treatment yet. Patient presents for extreme weakness. found to be renal failure with a BUN of 83
creatinine of 2.6 and potassium of 5.8 sodium low 127 no acute EKG changes. Patient denies any fevers is afebrile with elevated white count of 12.7. Will check urine for straight cath. Patient hydrated here in the ER with normal saline. will
require admission for dehydration renal failure. discussed with ED physician who ordered meds for hyperkalemia
Chronic conditions affecting care:
pancreatic cancer
*Pulse Oximetry
Patient hypoxic: no
*EKG
Interpreted by ED Provider?: Yes
Interpretation: abnormal
Heart Rate: 83
Rate: normal
Rhythm: sinus
Ischemia: non-specific ST changes
*Critical Care Note
Total Time (30-74mins, 75-104mins- exclusive of procedures): Not Applicable
ED Attending Note
-
Portions of this chart may have been created with voice recognition software.� Occasional wrong word or��sound alike� substitutions may have occurred due to the inherent limitations of voice recognition software.
Discharge Plan
Departure
Patient Disposition: Admit
Date of Disposition: 12/31/23
Time of Disposition: 15:32
Admit to: Telemetry
Admit to doctor: hospitalist
Presentation/result/management discussed w/ accepting MD/DO: Hospitalist
Condition: Fair
Covid-19: Not Applicable
Discharge Problem:
Acute renal failure, pancreatic cancer, Anemia, Acute hyponatremia, Acute hyperkalemia
Prescriptions:
No Action
losartan 50 mg Tablet
100 mg PO DAILY
amlodipine 2.5 mg Tablet
7.5 mg PO DAILY
(DME) nebulizer accessories Kit
MISCELLANEOUS
Rx Instructions:
BID
atorvastatin 40 mg Tablet
40 mg PO DAILY
metformin 500 mg Tablet
1,000 mg PO BID
fluoxetine 10 mg Tablet
20 mg PO DAILY
omeprazole 40 mg Capsule,Delayed Release(Dr/Ec)
40 mg PO DAILY
amitriptyline 25 mg Tablet
25 mg PO DAILY
nadolol 40 mg Tablet
40 mg PO DAILY
montelukast 10 mg Tablet
10 mg PO DAILY
Novolog Mix 70-30 U-100 Insuln
subcut (via wearable injectr) PRN PRN (Reason: high blood sugar)
Patient Comments:
patient staes she has not used this in quite awhile
furosemide 20 mg Tablet
20 mg PO DAILY Qty: 30 0RF
Levemir FlexPen 100 unit/mL (3 mL) Insulin Pen
30 unit SC HS Qty: 0 0RF
Arnuity Ellipta 100 mcg/actuation Blister With Device
1 inh INHALATION DAILY
Combivent Respimat 20-100 mcg/actuation mist
1 puff inhalation Q6H PRN (Reason: shortness of breath or wheezing) Qty: 4 0RF
calcium 600 mg Capsule
1,200 mg PO DAILY
Fish Oil Capsule
1,200 mg PO BID
garlic 600 mg Capsule
1,200 mg PO DAILY
biotin 2,500 mcg Tablet
2,500 mcg PO DAILY
vit D3-folic ggdi-D8-A3-B12 2,000-800-0.32 unit-mcg-mg Tablet
1 tab PO BID
Mucus and Cough Relief
PO DAILY
PreserVision AREDS
PO DAILY
Probiotic
PO DAILY
Slow Fe
PO DAILY
Tylenol
PO PRN (Reason: pain)
fiber
PO BID
Referrals:
Chris Kellogg MD [Family Provider] -
Interventions
Interventions:
*Risk Screen - Suicide Last Done: 12/31/23 12:42
*General Assessment Last Done: 12/31/23 12:42
*Neglect/Abuse Screening Last Done: 12/31/23 12:42
ED- Fall Risk Assessment Last Done: 12/31/23 12:59
ED- Cardiac Assessment Last Done: 12/31/23 12:59
ED- Neurological Assessment Last Done: 12/31/23 12:59
ED- Pulmonary Assessment Last Done: 12/31/23 12:59
Discharge Date and Time
Print Language: PASHTO
[2023-12-31 13:19] LABS: Venous Blood Gas B.E. -8.9 mmol/L (-4 to +4); Venous Blood Gas HCO3 18.8 mmol/L (22-27); Venous Blood Gas O2 Sat % 75.1 %; Venous Blood Gas pCO2 48 mmHg (35-48); Venous Blood Gas pO2 44 mmHg (30-50)
[2023-12-31 13:39] LABS: % Basophils 0.2 % (0-2); % Eosinophils 0.2 % (0-6); % Immature Granulocytes 0.8 % (0-0.5); % Lymphocytes 3.7 % (20.5-51.1); % Monocytes 7.6 % (1.7-9.3); % Neutrophils 87.5 % (42.2-75.2); Absolute Immature Granulocytes 0.1 10^3/uL (0-0.05); Absolute Lymphocytes 0.5 10^3/uL (1.2-3.4); Absolute Neutrophils 11.1 10^3/uL (1.4-6.5); Hemoglobin 8.8 g/dL (12.0-16.0); Mean Corp Hgb Conc. 33.8 g/dL (33.0-37.0); Mean Corpuscular Hgb 26.8 pg (27.0-31.0); Mean Corpuscular Volume 79.3 fL (81.0-99.0); Mean Platelet Volume 9.3 fL (7.4-10.4); Nucleated Red Blood Cells % 0 %; Platelet Count 782 10^3/uL (130-400); Red Blood Cell Count 3.28 10^6/uL (4.20-5.40); Red Cell Dist. Width 18.8 % (11.5-14.5); White Blood Cell Count 12.7 10^3/uL (4.8-10.8)
[2023-12-31 14:00] VITALS: BP 106/54
[2023-12-31] MEDS: NSS 1000 IV (14:45)
[2023-12-31 15:01] LABS: ALT (SGPT) 19 U/L (0-35); AST (SGOT) 33 U/L (14-36); Albumin 2.6 g/dl (3.5-5.0); Alkaline Phosphatase 123 U/L (38-126); Blood Urea Nitrogen 83 mg/dl (7-17); Calcium 8.8 mg/dl (8.4-10.2); Carbon Dioxide 16 mmol/L (22-30); Chloride 96 mmol/L (98-107); Estimated Creatinine Clearance 16 ml/min; Glucose 174 mg/dl (70-99); Potassium 5.8 mmol/L (3.5-5.1); Sodium 127 mmol/L (135-145); Total Bilirubin 0.7 mg/dl (0.2-1.3); Total Protein 5.9 g/dl (6.3-8.2); eGFR 18.78
[2023-12-31 15:11] LABS: NT-proBNP 1900 pg/ml
--- NOTE | 2023-12-31 15:34 | HPS.HSE ---
Family Physician
-
Family Physician: Chris Kellogg
Chief Complaint
-
Poor oral intake
History of Present Illness
73 y/o F with PMHx:
Recently diagnosed pancreatic cancer
Chronic HFpEF
DM2
h/o pulmonary nodules
Essential HTN
HLD
Depression
who p/w chief complaint of poor oral intake. The patient reports that she has not been eating since . The patient is a somewhat poor historian. The history is obtained from the patient and her at bedside. 2 weeks ago the patient
had a paracentesis. Within that timeframe she also had an episode of hypoglycemia. She has had extremely poor oral intake over the last few weeks. She complains of abdominal pain and worsening distention. Denies chest pain or shortness of
breath. She has been recently diagnosed with pancreatic cancer and has had no cancer directed therapy as of today's date.
Medical History
Past Medical History
Past Medical History: Reports Other (Recently diagnosed pancreatic cancer Chronic HFpEF DM2 h/o pulmonary nodules Essential HTN HLD Depression)
Past Surgical History: Reports Appendectomy and Gynocological
Social History
Tobacco: Non-smoker
Alcohol: None
Drug: None
Family History
Family History: Not pertinent
Allergies / Home Medications
Allergies reflects when Allergies were last updated in [facility].
Home Medications with original date entered in [facility]
Allergy/Medication List:
Allergies
Allergy/AdvReac Type Severity Reaction Status Date / Time
No Known Allergies Allergy Verified 12/06/23 07:14
Home Medications
Novolog Mix 70-30 U-100 Insuln subcut (via wearable injectr) PRN PRN high blood sugar 11/02/23
amitriptyline 25 mg tablet 25 mg PO DAILY 11/02/23
amlodipine 2.5 mg tablet 7.5 mg PO DAILY 11/02/23
atorvastatin 40 mg tablet 40 mg PO DAILY 11/02/23
fluoxetine 10 mg tablet 20 mg PO DAILY 11/02/23
losartan 50 mg tablet 100 mg PO DAILY 11/02/23
metformin 500 mg tablet 1,000 mg PO BID 11/02/23
montelukast 10 mg tablet 10 mg PO DAILY 11/02/23
nadolol 40 mg tablet 40 mg PO DAILY 11/02/23
nebulizer accessories 11/02/23
omeprazole 40 mg capsule,delayed release 40 mg PO DAILY 11/02/23
fluticasone furoate 100 mcg/actuation blister powder for inhalation (Arnuity Ellipta) 1 inh inhalation DAILY 11/04/23
furosemide 20 mg tablet 20 mg PO DAILY #30 tabs 11/04/23
insulin detemir U-100 100 unit/mL (3 mL) subcutaneous pen (Levemir FlexPen) 30 unit (0.3 mL) SC HS #0 mL 11/04/23
ipratropium 20 mcg-albuterol 100 mcg/actuation mist for inhalation (Combivent Respimat) 1 puff inhalation Q6H PRN shortness of breath or wheezing #4 grams 11/04/23
Mucus and Cough Relief PO DAILY 12/06/23
PreserVision AREDS PO DAILY 12/06/23
Probiotic PO DAILY 12/06/23
Slow Fe PO DAILY 12/06/23
Tylenol PO PRN pain 12/06/23
biotin 2,500 mcg tablet 2,500 mcg PO DAILY 12/06/23
calcium 600 mg capsule 1,200 mg PO DAILY 12/06/23
fiber PO BID 12/06/23
garlic 600 mg capsule 1,200 mg PO DAILY 12/06/23
omega-3 fatty acids 1,200 mg PO BID 12/06/23
vit D3-folic acid-vit B2-B6-B12 2,000 unit-800 mcg-0.32 mg tablet 1 tab PO BID 12/06/23
dronabinol 2.5 mg capsule 2.5 mg PO BID 12/31/23
morphine 15 mg tablet,extended release 15 mg PO Q12H 10/05/24
oxycodone 5 mg tablet 5 mg PO Q6H PRN pain 12/31/23
Review of Systems
-
History Source: Patient
A 12 point ROS was completed and negative except as noted: Yes
Physical Exam
Vital Signs
Vital Signs
Temp Pulse Resp BP Pulse Ox
97.4 F 90 22 122/60 96
12/31/23 12:42 12/31/23 12:42 12/31/23 12:42 12/31/23 12:42 12/31/23 12:59
Physical Exam
General: Other (.)
Laboratory Results
-
12/31/23 13:05
12/31/23 14:41
Laboratory Results
Total Bilirubin 0.7 mg/dl (0.2-1.3) 12/31/23 14:41
AST 33 U/L (14-36) 12/31/23 14:41
ALT 19 U/L (0-35) 12/31/23 14:41
Alkaline Phosphatase 123 U/L (38-126) 12/31/23 14:41
Impression/Plan
-
Gen: NAD, AAOx3, appears chronically ill.
Eyes: EOMI, PERRLA, no scleral icterus.
Neck: supple.
CV: RRR, +S1/S2, no m/r/g.
Resp: CTAB, no rales, wheezes, or rhonchi.
Abd: +BS, soft, moderate distention with ascites, diffuse tenderness to palpation
Skin: No rashes.
Neuro: CN 2-12 intact, non-focal.
Psych: Depressed mood and fairly flat affect.
MRI Abd 11/14/23: The pancreas overall appears atrophic. There is a is an ill-defined focus of heterogeneous T2 signal and hypoenhancement along the pancreatic body which is similar to prior CT. There is associated mild dilation of the main duct
within the distal body and tail. Additionally there is mild local mass effect with high-grade narrowing of the portal vein confluence and proximal main portal vein. There is perihepatic and perisplenic free fluid which tracks into the paracolic
gutters. Findings may represent focal pancreatitis although are suspicious for malignancy. Consider endoscopic ultrasound for further evaluation. Prominent upper abdominal lymph nodes, similar to prior CT. No evidence of cholelithiasis or
choledocholithiasis. The common bile duct is within normal limits measuring 5 mm. There is bilateral renal parapelvic cysts.
VIRGILIO:
-with hyperkalemia and hyponatremia
-ECG without TW changes of hyperkalemia
-c/s renal
-check serum/urine Osm, urine Na/Cr
-OK for IVFs now considering prerenal azotemia. NaHCO3 (150meq/L) @ 125cc/hr.
-BMP Q6H
Abdominal distention with ascites:
-pt reports she has a paracentesis a couple of weeks ago which helped symptomatically
-c/s IR for Dx/Tx paracentesis
Other problems:
Chronic diarrhea: no stool recently
Recently diagnosed pancreatic cancer (12/06/23)
Chronic HFpEF
DM2: recently has hypoglycemia. SSI/accuchecks for now.
h/o pulmonary nodules
Essential HTN: Holding hypertensive medications for now with acute kidney injury
HLD
Depression: hold SSI with hyponatremia. Cont Elavil.
FULL/Heparin
--- NOTE | 2023-12-31 15:42 | W.CON.NEPH ---
Consultation
-
Date/Time Consultation Requested: 12/31/23 1540
Date/Time Consultation Performed: 12/31/23 1630
Requesting Provider: Zhao Zapien
Performing Provider: Judy Mcqueen
Reason for Consultation: VIRGILIO, hyponatremia
Medical History
-
Chief Complaint: FTT
History of Present Illness:
Miss Torres is a 73-year-old female with a history of diabetes mellitus on metformin and Levemir, hypertension on amlodipine,losartan, depression on fluoxetine, hyperlipidemia on atorvastatin, chronic bronchiolitis, inhalers, diastolic CHF on
low-dose of Lasix, recent diagnosis of pancreatic cancer who p/w chief complaint of poor oral intake for several weeks, she lost 30 pounds since July. She currently follows at oncology at [place], No treatment was started yet. She had paracentesis
within last 2 weeks.Patient is a poor historian, history is opted through the was at bedside. Her abdominal symptoms initially started in July, had workup aggressively and finally found to have pancreatic cancer. She is currently followed
by palliative care. Due to her increasing abdominal distention and pain she was given morphine and oxycodone for pain relief. She was also started on dronabinol for appetite stimulant. According to the she hasn't been eating or drinking
for weeks now, her urine output also decreased. Denies chest pain or shortness of breath. she has a chronic cough, hasn't been able to use the inhalers recently which worsening the cough. No fever or chills. reports she had COVID last
month?. He thinks she is needs to have paracentesis with increasing distention.
Past Medical History
Hypertension, hyperlipidemia, chronic rhinitis, chronic bronchiolitis, chronic sinusitis, diabetes, history of colon polyps with polypectomy, history of breast cancer, GERD, history of pulm nodules follow-up as outpatient. History of mastectomy
with flap reconstruction, right ureteroscopy with lithotripsy and stent 2007, sinus surgery 2019, hysterectomy,
Past Surgical History: Other (Appendectomy and Gynocological)
Social History
Tobacco: Non-Smoker
Alcohol: None
Personal:
Living: With Family
Employment: Retired (paraprofessional aide teacher)
Family History
father with diabetes, unclear if he had any kidney problems
Allergies / Home Medications
Allergy/AdvReac Type Severity Reaction Status Date / Time
No Known Allergies Allergy Verified 12/06/23 07:14
�Medication �Instructions �Recorded �Confirmed �Type
Novolog Mix 70-30 U-100 Insuln subcut (via wearable injectr) PRN 11/02/23 History
PRN high blood sugar
amitriptyline 25 mg tablet 25 mg PO DAILY 11/02/23 12/06/23 History
amlodipine 2.5 mg tablet 7.5 mg PO DAILY 11/02/23 12/06/23 History
atorvastatin 40 mg tablet 40 mg PO DAILY 11/02/23 12/06/23 History
fluoxetine 10 mg tablet 20 mg PO DAILY 11/02/23 12/06/23 History
losartan 50 mg tablet 100 mg PO DAILY 11/02/23 12/06/23 History
metformin 500 mg tablet 1,000 mg PO BID 11/02/23 12/06/23 History
montelukast 10 mg tablet 10 mg PO DAILY 11/02/23 12/06/23 History
nadolol 40 mg tablet 40 mg PO DAILY 11/02/23 12/06/23 History
nebulizer accessories 11/02/23 11/02/23 History
omeprazole 40 mg capsule,delayed 40 mg PO DAILY 11/02/23 12/06/23 History
release
fluticasone furoate 100 1 inh inhalation DAILY 11/04/23 12/06/23 History
mcg/actuation blister powder for
inhalation (Arnuity Ellipta)
furosemide 20 mg tablet 20 mg PO DAILY #30 tabs 11/04/23 12/06/23 Rx
insulin detemir U-100 100 unit/mL 30 unit (0.3 mL) SC HS #0 mL 11/04/23 12/06/23 Rx
(3 mL) subcutaneous pen (Levemir
FlexPen)
ipratropium 20 mcg-albuterol 100 1 puff inhalation Q6H PRN 11/04/23 12/06/23 Rx
mcg/actuation mist for inhalation shortness of breath or wheezing #4
(Combivent Respimat) grams
Mucus and Cough Relief PO DAILY 12/06/23 History
PreserVision AREDS PO DAILY 12/06/23 History
Probiotic PO DAILY 12/06/23 History
Slow Fe PO DAILY 12/06/23 History
Tylenol PO PRN pain 12/06/23 History
biotin 2,500 mcg tablet 2,500 mcg PO DAILY 12/06/23 12/06/23 History
calcium 600 mg capsule 1,200 mg PO DAILY 12/06/23 12/06/23 History
fiber PO BID 12/06/23 History
garlic 600 mg capsule 1,200 mg PO DAILY 12/06/23 12/06/23 History
omega-3 fatty acids 1,200 mg PO BID 12/06/23 12/06/23 History
vit D3-folic acid-vit B2-B6-B12 1 tab PO BID 12/06/23 12/06/23 History
2,000 unit-800 mcg-0.32 mg tablet
Review of Systems
-
patient is confused and unable to provide details of the history
Physical Exam
Vital Signs
Vital Signs
Temp Pulse Resp BP Pulse Ox
97.4 F 90 22 122/60 96
12/31/23 12:42 12/31/23 12:42 12/31/23 12:42 12/31/23 12:42 12/31/23 12:59
Lab Results
WBC 12.7 10^3/uL (4.8-10.8) H 12/31/23 13:05
RBC 3.28 10^6/uL (4.20-5.40) L 12/31/23 13:05
Hgb 8.8 g/dL (12.0-16.0) L 12/31/23 13:05
Hct 26.0 % (37.0-47.0) L 12/31/23 13:05
Plt Count 782 10^3/uL (130-400) H 12/31/23 13:05
Sodium 127 mmol/L (135-145) L 12/31/23 14:41
Potassium 5.8 mmol/L (3.5-5.1) H 12/31/23 14:41
Chloride 96 mmol/L (98-107) L 12/31/23 14:41
Carbon Dioxide 16 mmol/L (22-30) L 12/31/23 14:41
BUN 83 mg/dl (7-17) H 12/31/23 14:41
Creatinine 2.6 mg/dL (0.6-1.0) H 12/31/23 14:41
eGFR 18.78 12/31/23 14:41
Glucose 174 mg/dl (70-99) H 12/31/23 14:41
Calcium 8.8 mg/dl (8.4-10.2) 12/31/23 14:41
[id number] Pept 1900 pg/ml 12/31/23 14:41
Albumin 2.6 g/dl (3.5-5.0) L 12/31/23 14:41
CXR:
FINDINGS:
Lungs: Small left pleural effusion with associated consolidation. Mild right basilar atelectasis, progressed. No visualized pneumothorax.
Heart: Cardiac and mediastinal contours are unremarkable. No overt pulmonary vascular congestion.
Osseous structures: No acute abnormalities.
IMPRESSION:
Small left pleural effusion with associated atelectasis and/or pneumonia.
Physical Exam
General: Awake, Alert, Oriented, AOx3, No Distress and Nontoxic
HEENT: EOMI, Anicteric and No JVD
Respiratory: Normal Excursion, Nonlabored Respirations and Other (decreased BS)
Cardiac: S1/S2 and Regular Rate/Rhythm
Breast: Deferred by me
Abdomen: Soft, Nontender and Other (distended)
Musculoskeletal: No Cyanosis and No Edema
Skin: No Rash
Neuro: Nonfocal/Grossly Intact
Psych: Mood/afflect pleasant and Other (confused)
Data Reviewed
-
Labs: Labs Reviewed by me, Discussed with Patient and Discussed with Family
Assessment/Plan
-
IMP:
VIRGILIO:
hyperkalemia
hyponatremia
Abdominal distention with ascites
Anemia
Leucocytosis
Thrombocytosis
Recently diagnosed pancreatic cancer (12/06/23)
Chronic HFpEF
DM2
h/o pulmonary nodules
Essential HTN
HLD
Depression
Plan:
A/w FTT and poor po intake, recent diagnosis of pancreatic cnacer
VIRGILIO-cr baseline 0.8 on 12/26
suspect prerenal, check UA, U lytes, bladder scan
check renal US
Hyperkalemia-will dose LOkelma
non gap met acidosis -will give bicarb IVF gently, hold metformin, venous pH 7.2
BNP is high but likely intravascularly low
Hyponatremia-multifactorial specially with underlying malignancy
check U osmo,U na
if sodium decreases with IVF may need 3% saline
BP stable, hold all BP med, ARB
avoid nephrotoxins
plan for paracentesis
follow h/h, microcytic -check fe studies
chr cough per pt, CXR Notes atelectasis vs PNA-mgt per primary
d/w pt and at bedside
labs later today
[2023-12-31 16:37] LABS: Osmolality Serum 295 mOsm/kg (275-300)
[2023-12-31 17:01] LABS: Urine Albumin Negative (Neg - Trace); Urine Bilirubin 1+ (Negative); Urine Character Clear (Clear); Urine Color Yellow; Urine Glucose Negative (Negative); Urine Ketone Trace (Negative); Urine Leukocyte Negative (Negative); Urine Nitrite Negative (Negative); Urine Occult Blood Negative (Negative); Urine Specific Gravity 1.025 (<1.030); Urine Urobilinogen 1+ (Neg - 1+)
[2023-12-31 17:06] LABS: Osmolality Urine 333 mOsm/kg (300-900)
[2023-12-31 17:17] LABS: Urine Sodium 5 mmol/L (30-90)
[2023-12-31 18:39] VITALS: BP 110/50
[2023-12-31 19:00] VITALS: BP 121/64
--- NOTE | 2023-12-31 19:24 | PTCARENOTE ---
Pt arrived to unit at 1825 via stretcher from ED with at bedside. VSS. pt connected to tele number [id number] running NSR on the monitor.
[2023-12-31] MEDS: SODIUM BICARBONATE 1075 MEQ IV (19:56)
[2023-12-31] MEDS: LOKELMA 10 GRAM PO (19:57)
[2023-12-31] MEDS: NOVOLOG FLEXPEN-MODERATE RESISTANCE SC (20:07)
[2023-12-31 20:34] LABS: Blood Urea Nitrogen 82 mg/dl (7-17); Calcium 8.8 mg/dl (8.4-10.2); Carbon Dioxide 13 mmol/L (22-30); Chloride 98 mmol/L (98-107); Estimated Creatinine Clearance 18 ml/min; Glucose 157 mg/dl (70-99); Potassium 5.5 mmol/L (3.5-5.1); Sodium 129 mmol/L (135-145); eGFR 20.68
[2023-12-31 21:37] LABS: Glucose - Point of Care 170 mg/dl (70-99)
[2023-12-31] MEDS: DILAUDID 0.5 MG IV (21:44)
[2023-12-31 23:00] VITALS: BP 104/50
[2023-12-31] MEDS: SODIUM BICARBONATE 1150 MEQ IV (23:48)
[2023-12-31] MEDS: HEPARIN 5000 UNITS SC (23:48)
[2024-01-01] VITALS (10 sets, daily range): BP systolic 94–145; BP diastolic 46–71; PULSE 87
--- NOTE | 2024-01-01 01:00 | PTCARENOTE ---
Patient bladder scanned around 0100 for 1157cc of urine. Allowed pt to try and sit on bedpan to void without success. Patient then straight cathed for only 200 cc of urine. Requested harden to monitor UOP closer, order placed.
Prior, pt had critical Co2 of 13 and patients potassium was 6.1 despite administering lokelma earlier in the night.
Requested LEGAL PARAPROFESSIONAL to come see patient. Patient stating She'thinks she is dying'
Patients vitals checked, 112/61, 93 HR, 93.3, 16 RR, and 87% on 2LNC, increased to 4LNC and then 6LNC. O2 saturation anywhere between 87% and 91%. Respiratory called to give neb tx.
I administered insulin/D50 per order for high potassium.
CXR ordered
Lasix and bicarb push ordered. Repeat labs ordered.
notified per pt's request.
Will continue to monitor.
[2024-01-01 01:32] LABS: Blood Urea Nitrogen 83 mg/dl (7-17); Calcium 8.5 mg/dl (8.4-10.2); Carbon Dioxide 13 mmol/L (22-30); Chloride 99 mmol/L (98-107); Estimated Creatinine Clearance 19 ml/min; Glucose 191 mg/dl (70-99); Potassium 6.1 mmol/L (3.5-5.1); Sodium 129 mmol/L (135-145); eGFR 21.76
[2024-01-01] MEDS: NOVOLIN R 0.05 UNITS IV (02:25)
[2024-01-01] MEDS: DEXTROSE 50% SYRINGE 12.5 GRAMS IV (02:33)
[2024-01-01] MEDS: DUONEB 3 ML INH (02:46)
[2024-01-01] MEDS: LASIX 20 MG IV (03:00)
[2024-01-01] MEDS: SODIUM BICARBONATE 50 MEQ IV (03:06)
[2024-01-01 03:38] LABS: B.E. -8.1 mmol/L; HCO3 16.4 mmol/L (21-28); O2 Saturation % 98.1 % (94-98); PCO2 29 mmHg (32-35); PO2 68 mmHg (83-108); pH 7.36 (7.35-7.45)
--- NOTE | 2024-01-01 04:02 | W.PN.UPDATE ---
Update Note
Progress Note Update
Requested by nursing to evaluate patient as patient reports feeling 'like she is going to '. Upon assessment, patient AAOX3, patient reports generalized weakness and difficulty breathing. She reports she feels she is going to and wants her
at the bedside. Patient noted to have labored breathing, on O2 in 86-88 on 4L - was on 2L saturating 93-98%, other VSS.
#Hypoxia - fluid overload? Home Lasix on hold
- 6L O2 saturating 90%
- Duoneb
- 20mg IV Lasix times one
- CXR
- ABG - unremarkable
#Metabolic Acidosis
- cont 150 bicarb IVF
- Rx 50meq bicarb push
- repeat labs
# Hyperkalemia
- 5U reg insulin & 1/2 amp d50.
- repeat labs
DW nursing
Patient's at bedside
Patient remains full code per patient and .
[2024-01-01 04:13] LABS: % Basophils 0.3 % (0-2); % Eosinophils 0.2 % (0-6); % Immature Granulocytes 0.5 % (0-0.5); % Lymphocytes 4.6 % (20.5-51.1); % Monocytes 9.7 % (1.7-9.3); % Neutrophils 84.7 % (42.2-75.2); Absolute Lymphocytes 0.4 10^3/uL (1.2-3.4); Absolute Monocytes 0.8 10^3/uL (0.1-0.6); Absolute Neutrophils 7.3 10^3/uL (1.4-6.5); Hematocrit 24.8 % (37.0-47.0); Hemoglobin 8.5 g/dL (12.0-16.0); Mean Corp Hgb Conc. 34.3 g/dL (33.0-37.0); Mean Corpuscular Volume 78.7 fL (81.0-99.0); Mean Platelet Volume 8.7 fL (7.4-10.4); Nucleated Red Blood Cells % 0.2 %; Platelet Count 619 10^3/uL (130-400); Red Blood Cell Count 3.15 10^6/uL (4.20-5.40); Red Cell Dist. Width 18.2 % (11.5-14.5); White Blood Cell Count 8.7 10^3/uL (4.8-10.8)
[2024-01-01 04:27] LABS: ALT (SGPT) 18 U/L (0-35); AST (SGOT) 31 U/L (14-36); Albumin 2.5 g/dl (3.5-5.0); Alkaline Phosphatase 121 U/L (38-126); Blood Urea Nitrogen 84 mg/dl (7-17); Calcium 8.6 mg/dl (8.4-10.2); Carbon Dioxide 16 mmol/L (22-30); Chloride 96 mmol/L (98-107); Estimated Creatinine Clearance 19 ml/min; Glucose 274 mg/dl (70-99); Potassium 5.5 mmol/L (3.5-5.1); Sodium 130 mmol/L (135-145); Total Bilirubin 0.8 mg/dl (0.2-1.3); Total Protein 5.8 g/dl (6.3-8.2); eGFR 21.76
[2024-01-01 05:42] LABS: Hematocrit 21.6 % (37.0-47.0); Hemoglobin 7.6 g/dL (12.0-16.0); Mean Corp Hgb Conc. 35.2 g/dL (33.0-37.0); Mean Corpuscular Volume 79.7 fL (81.0-99.0); Mean Platelet Volume 8.6 fL (7.4-10.4); Platelet Count 546 10^3/uL (130-400); Red Blood Cell Count 2.71 10^6/uL (4.20-5.40); Red Cell Dist. Width 18.4 % (11.5-14.5); White Blood Cell Count 8.1 10^3/uL (4.8-10.8)
[2024-01-01 05:59] LABS: Blood Urea Nitrogen 83 mg/dl (7-17); Calcium 8.3 mg/dl (8.4-10.2); Carbon Dioxide 17 mmol/L (22-30); Chloride 95 mmol/L (98-107); Estimated Creatinine Clearance 19 ml/min; Glucose 274 mg/dl (70-99); Potassium 5.2 mmol/L (3.5-5.1); Sodium 130 mmol/L (135-145); eGFR 21.76
[2024-01-01 07:42] LABS: Absolute Neutrophils -Man Diff 6.3 10^3/uL (1.4-6.5); Band Neutrophils 15 % (0-3); Eosinophils 1 % (0-6); Lymphocytes 12 % (20-51); Monocytes 8 % (2-9); Normal RBC Morphology Yes; Platelets Checked Yes; Segmented Neutrophils 64 % (42-75); Total Cells Counted 100
[2024-01-01 08:07] LABS: Glucose - Point of Care 312 mg/dl (70-99)
[2024-01-01] MEDS: NOVOLOG FLEXPEN-MODERATE RESISTANCE 7 UNITS SC (08:47)
[2024-01-01] MEDS: DILAUDID 0.5 MG IV ×2 (08:48→20:22)
[2024-01-01] MEDS: HEPARIN 5000 UNITS SC ×3 (08:48→23:35)
--- NOTE | 2024-01-01 09:44 | W.PN.HOSP.TC ---
Today's Communication/Plan
-
see plan
Assessment / Plan
Assessment / Plan
Gen: NAD, Awake and alert, appears chronically ill.
Eyes: EOMI, PERRLA, no scleral icterus.
Neck: supple.
CV: remains RRR, +S1/S2, no m/r/g.
Resp: CTAB anteriorly, no rales, wheezes, or rhonchi.
Abd: +BS, soft, moderate-severe distention with ascites, diffuse tenderness to palpation
Skin: No rashes.
Neuro: CN 2-12 intact, non-focal.
Psych: Depressed mood and fairly flat affect.
MRI Abd 11/14/23: The pancreas overall appears atrophic. There is a is an ill-defined focus of heterogeneous T2 signal and hypoenhancement along the pancreatic body which is similar to prior CT. There is associated mild dilation of the main duct
within the distal body and tail. Additionally there is mild local mass effect with high-grade narrowing of the portal vein confluence and proximal main portal vein. There is perihepatic and perisplenic free fluid which tracks into the paracolic
gutters. Findings may represent focal pancreatitis although are suspicious for malignancy. Consider endoscopic ultrasound for further evaluation. Prominent upper abdominal lymph nodes, similar to prior CT. No evidence of cholelithiasis or
choledocholithiasis. The common bile duct is within normal limits measuring 5 mm. There is bilateral renal parapelvic cysts.
CXR: Small left pleural effusion, likely slightly decreased in size compared to the chest radiograph from 12/31/2023.
VIRGILIO:
-with hyperkalemia, hyponatremia, and acute AG metabolic acidosis
-ECG without TW changes of hyperkalemia
-renal following
-K and Na improving with D5 with NaHCO3 150meq/L @ 100cc/hr
-Cr slightly improved from admission
Abdominal distention with ascites:
-pt reports she has a paracentesis a couple of weeks ago which helped symptomatically
-for Dx/Tx paracentesis today
DM2:
-recently had hypoglycemia.
-now with hyperglycemia
-NPH 10U x 1 now, start Lantus 10U HS
-cont SSI/accuchecks
-Check beta hydroxybutyric acid and lactic acid.
-I suspect the patient's acute metabolic acidosis is due to acute kidney injury and possibly lactic acidosis but do want to ensure that diabetic ketoacidosis is not a component here.
Acute hypoxemic respiratory failure:
-currently 88% on 5L NC
-c/s pulm
-transfer to IMU
-going for paracentesis now which should help with diaphragmatic excursion
-Patient with malignancy and obviously pulmonary embolism is a concern. With acute kidney injury cannot do CT angiogram of the chest at this time. Will start with bilateral lower extremity ultrasound to assess for DVT.
-Will discuss V/Q scan with pulmonary.
Other problems:
Chronic diarrhea: no stool recently
Recently diagnosed pancreatic cancer (12/06/23)
Chronic HFpEF
h/o pulmonary nodules
Essential HTN: Holding hypertensive medications for now with acute kidney injury
HLD
Depression: hold SSI with hyponatremia. Cont Elavil.
FULL/Heparin
RN updated
Patient's updated at length at bedside. I did discuss with him that the patient has multiple, severe, active medical problems and that this is a very high risk situation. I did discuss my recommendation to make the patient DNR. He is
considering this.
Total time spent on today's encounter was 55 minutes which included time spent in counseling the patient/family regarding diagnosis and treatment plan as listed above, goals of care, and symptom management. Case was discussed with nursing staff,
specialists, and care coordinators/case management. All labs and imaging personally reviewed by me. Remainder the time spent in detailed review of previous records, lab data, imaging, and other medical provider documentation.
Anticipated Discharge: > 48 hours
Subjective/Interval History
-
Date of Service: January 01, 2024
Objective Data
-
Labs:
Laboratory Results
01/01/24 01/01/24 01/01/24
01:11 03:30 03:31
WBC 8.7
Hgb 8.5 L
Hct 24.8 L
Plt Count 619 H D
HCO3 16.4 L
Sodium 129 L 130 L
Potassium 6.1 H* 5.5 H
Chloride 99 96 L
Carbon Dioxide 13 L* 16 L
BUN 83 H 84 H
Creatinine 2.3 H 2.3 H
Glucose 191 H 274 H
Calcium 8.5 8.6
Total Bilirubin 0.8
AST 31
ALT 18
Alkaline Phosphatase 121
01/01/24
05:10
WBC 8.1
Hgb 7.6 L
Hct 21.6 L
Plt Count 546 H
HCO3
Sodium 130 L
Potassium 5.2 H
Chloride 95 L
Carbon Dioxide 17 L
BUN 83 H
Creatinine 2.3 H
Glucose 274 H
Calcium 8.3 L
Total Bilirubin
AST
ALT
Alkaline Phosphatase
Vital Signs:
Vital Signs
Temp Pulse Resp BP Pulse Ox
98.6 F 93 15 117/52 88
01/01/24 08:29 01/01/24 08:29 01/01/24 08:29 01/01/24 08:29 01/01/24 08:29
I&O
12/31/23 01/01/24 01/02/24
06:59 06:59 06:59
Intake Total 1320 / 1320
Output Total 250 / 250
Balance 1070 / 1070
[2024-01-01 10:26] LABS: Lactic Acid 0.9 mmol/L (0.7-2.0)
[2024-01-01 10:33] LABS: B-Hydroxybutyrate 1.83 mmol/L (0.02-0.27)
[2024-01-01 11:08] LABS: Body Fluid Mononuclear 34.1 %; Body Fluid Polymorphonuclear 65.9 %; Body Fluid WBC 1343 /CUMM
[2024-01-01 11:09] LABS: Body Fluid Second Tech CS
[2024-01-01 11:21] LABS: Body Fluid Protein 4.1 g/dl
--- NOTE | 2024-01-01 11:29 | CON.PUL ---
Consultation
Consultation Request
Date/Time Consultation Requested: 01/01/24
Date/Time Consultation Performed: 01/01/24
Performing Provider: Rosenda
Reason for Consultation: SOB, hypoxia
Medical History
-
History of Present Illness:
Patient is a 73-year-old female with previous history of recently diagnosed pancreatic cancer, hypertension, HLD presenting to ER with progressive generalized weakness, abdominal distention, decreased p.o. intake. In ER she was found to be in
acute kidney injury with creatinine 2.6, potassium 5.8, sodium 127. She has not undergone treatment yet for her cancer as she has an appointment coming up at [facility] on Tuesday. She is admitted for acute dehydration and renal failure. She has been
placed on supplemental O2 for hypoxemia requiring 6 L. Chest x-ray demonstrating small left pleural effusion.
She had prior chest imaging on prior admission in October demonstrating multiple pulmonary nodules, which were being followed as an outpatient.
She has no other lung history besides obstructive sleep apnea on CPAP.
.
Past Medical History
Past Medical History: Other (see list below)
Social History
Tobacco: Non-smoker
Alcohol: None
Drug: None
Family History
Family History: Reviewed & Not Pertinent
Allergies / Home Medications
Allergies
Allergy/AdvReac Type Severity Reaction Status Date / Time
No Known Allergies Allergy Verified 12/06/23 07:14
Home Medications
�Medication �Instructions �Recorded �Confirmed �Last Taken �Type
Novolog Mix 70-30 U-100 Insuln subcut (via wearable injectr) PRN 11/02/23 Unknown History
PRN high blood sugar
amitriptyline 25 mg tablet 25 mg PO DAILY Mental 11/02/23 12/31/23 12/04/23 History
Health/Anxiety
amlodipine 2.5 mg tablet 7.5 mg PO DAILY Blood Pressure 11/02/23 12/31/23 12/05/23 09:00 History
atorvastatin 40 mg tablet 40 mg PO DAILY High Cholesterol 11/02/23 12/31/23 12/05/23 09:00 History
fluoxetine 10 mg tablet 20 mg PO DAILY Mental 11/02/23 12/31/23 12/05/23 09:00 History
Health/Anxiety
losartan 50 mg tablet 100 mg PO DAILY Blood Pressure 11/02/23 12/31/23 12/05/23 09:00 History
metformin 500 mg tablet 1,000 mg PO BID Diabetes 11/02/23 12/31/23 12/04/23 History
montelukast 10 mg tablet 10 mg PO DAILY Lung/Breathing 11/02/23 12/31/23 12/05/23 09:00 History
Issues
nadolol 40 mg tablet 40 mg PO DAILY Blood Pressure 11/02/23 12/31/23 12/05/23 09:00 History
nebulizer accessories 11/02/23 12/31/23 Unknown History
omeprazole 40 mg capsule,delayed 40 mg PO DAILY Gastrointestinal 11/02/23 12/31/23 12/05/23 09:00 History
release Issue
fluticasone furoate 100 1 inh inhalation DAILY 11/04/23 12/31/23 12/05/23 09:00 History
mcg/actuation blister powder for Lung/Breathing Issues
inhalation (Arnuity Ellipta)
furosemide 20 mg tablet 20 mg PO DAILY #30 tabs 11/04/23 12/31/23 12/05/23 09:00 Rx
insulin detemir U-100 100 unit/mL 30 unit (0.3 mL) SC HS #0 mL 11/04/23 12/31/23 12/04/23 Rx
(3 mL) subcutaneous pen (Levemir
FlexPen)
ipratropium 20 mcg-albuterol 100 1 puff inhalation Q6H PRN 11/04/23 12/31/23 12/05/23 09:00 Rx
mcg/actuation mist for inhalation shortness of breath or wheezing #4
(Combivent Respimat) grams
Mucus and Cough Relief PO DAILY Lung/Breathing Issues 12/06/23 12/05/23 History
PreserVision AREDS PO DAILY Supplement 12/06/23 12/05/23 History
Probiotic PO DAILY Supplement 12/06/23 12/05/23 History
Slow Fe PO DAILY Supplement 12/06/23 11/27/23 History
Tylenol PO PRN pain 12/06/23 12/04/23 History
biotin 2,500 mcg tablet 2,500 mcg PO DAILY Supplement 12/06/23 12/31/23 12/05/23 History
calcium 600 mg capsule 1,200 mg PO DAILY Supplement 12/06/23 12/31/23 12/05/23 History
fiber PO BID 12/06/23 12/05/23 History
garlic 600 mg capsule 1,200 mg PO DAILY Supplement 12/06/23 12/31/23 12/05/23 History
omega-3 fatty acids 1,200 mg PO BID Supplement 12/06/23 12/31/23 11/27/23 History
vit D3-folic acid-vit B2-B6-B12 1 tab PO BID Supplement 12/06/23 12/31/23 12/05/23 History
2,000 unit-800 mcg-0.32 mg tablet
dronabinol 2.5 mg capsule 2.5 mg PO BID nausea/vomiting 12/31/23 12/31/23 Unknown History
morphine 15 mg tablet,extended 15 mg PO Q12H Pain 12/31/23 12/31/23 Unknown History
release
oxycodone 5 mg tablet 5 mg PO Q6H PRN pain 12/31/23 12/31/23 Unknown History
Review of Systems
-
History Source: Patient
All other systems: Negative unless noted
Vitals / Labs / Diagnostic Testing
Vital Signs
Temp Pulse Resp BP Pulse Ox
98.1 F 94 19 94/57 91
01/01/24 10:30 01/01/24 11:04 01/01/24 11:04 01/01/24 11:04 01/01/24 11:04
Lab Data
01/01/24 05:10
01/01/24 05:10
Laboratory Results
01/01/24
03:30
pH 7.36
pCO2 29 L
pO2 68 L
HCO3 16.4 L
O2 Delivery Level
Diagnostic Testing:
Physical Exam
-
HEENT: Normocephalic, Anicteric and Moist Mucous Membranes
Cardiovascular: S1/S2 and Regular Rhythm
Respiratory: Clear (overall diminshed) and Non-Labored Respirations
GI: Soft, Distended and Tender
Neurology: Awake, Alert, Oriented and No Motor Deficits
Skin: Warm and Dry
General: Comfortable, Poor Appetite and Other (chronically ill appearing)
Assessment
-
Patient is a 73-year-old female with previous history of recently diagnosed pancreatic cancer, hypertension, HLD presenting to ER with progressive generalized weakness, abdominal distention, decreased p.o. intake. In ER she was found to be in
acute kidney injury with creatinine 2.6, potassium 5.8, sodium 127. She has not undergone treatment yet for her cancer as she has an appointment coming up at [facility] on Tuesday. She is admitted for acute dehydration and renal failure. She has been
placed on supplemental O2 for hypoxemia requiring 6 L. Chest x-ray demonstrating small left pleural effusion.
Acute hypoxemic respiratory failure
Shortness of breath
Generalized weakness, abdominal distention, decreased p.o. intake
VIRGILIO
Acute dehydration
Hyperkalemia
Hyponatremia
Recent diagnosis of pancreatic cancer
Conditions present prior to admission
Multiple pulmonary nodules per CT chest, largest 7 mm, followed by Dr Herrera
Obstructive sleep apnea on CPAP
Total AHI 12.3 sleep study June 2018
Chronic rhinitis/bronchiolitis/sinusitis
Improved FEV1 since 2019 on nebulized therapy
History of sinus surgery/followed by ENT ([facility]ani)
GERD, Fernandez's esophagitis per history
History of insulin-dependent diabetes
HLD
HTN
History of breast cancer
Mastectomy with TRAM FLAP reconstruction
Hysterectomy
Appendectomy
Pilonidal cyst excision
Ovarian cystectomy
Right ureteroscopy/laser litho and stent 07/2017
Sinus surgery 05/2019
Plan
New hypoxemia, not on O2 at home
CXR not showing significant findings, small L effusion that resolved on repeat testing
No prior history of lung disease, had nodules but would not account for hypoxemia
Recent PFT as OP normal except for moderate diffusion impairment
ECHO in past showing normal findings, mild PH, PAP 33
Will check sputum culture given her productive cough
Check d-dimer, high risk for VTE given her recent history
Duplex negative
May consider obtaining VQ scan since creat limiting for PE study
ABG obtained: 7.36/29/68/16.4/98%
paO2 maintained on supplemental O2
Recent history of pancreatic cancer
Has not yet received treatment, to be followed at [facility]
She notes abd distention/pain
Started on QID nebs PRN
ROSA on CPAP
Will resume CPAP
Aspiration precautions
Head of bed elevated in the interim
Can consider speech eval if this is an issue
Reviewed with patient and primary service
We will follow
Diagnostic Data
Chest X-Ray: 01/01/24- Small left pleural effusion, likely slightly decreased in size compared to the chest radiograph from 12/31/2023.
CT Scan: CHEST 11/02/23-There are numerous subcentimeter nodules, most pronounced within the bilateral lower lobes. The largest of which measures approximately 7 mm mm in the left lower lobe (series 201 image 35) and 7 mm in the right lower lobe
(series 201 image 35). There is atelectasis/scarring within the medial right lower lobe with associated minimal bronchiectasis, likely due to adjacent prominent osteophyte. Overall slightly increased in size from prior. Findings are most suspicious
for pulmonary metastases. There is new perisplenic and perihepatic free fluid in the upper abdomen.
Echo: 11/02/23- Normal biventricular size and systolic function without regional wall motion abnormality. No significant valvular disease. No prior study available for comparison.
PFT's: 08/2023-Testing essentially normal other than moderate gas exchange defect
Reports and relevant images were personally reviewed.
Total time spent on this consultation __76__ includes review of history, physical exam, medications, laboratory data, personal review of imaging, extensive review of outpatient records, discussion with care team and respiratory therapy.
--- NOTE | 2024-01-01 11:31 | PTCARENOTE ---
Late entry d/t pt care: Pt alert to self and place. Complaints of 10/10 abdominal pain, pain medication administered per MAR. Pt's abdomen very distended and full. Pt also complaining of SOB, currently on 6L O2 NC, O2 reading 88% . at the
bedside. Dr. Leyva bedside with patient and family. Pt to go to IR for paracentesis and to be transferred to IMU after procedure. This RN gave report to Iban ALLISON in IMU.
--- NOTE | 2024-01-01 11:47 | PHA.VAN.IN ---
Assessment
- Assessment
Renal Function: Appears similar to baseline
Concomitant Antimicrobials: ZOSYN
HISTORY OF MSSA
Plan
- Plan
Initial / Loading Dose: 1500MG
Maintenance Regimen: PRN BY LEVEL
Monitoring: RANDOM 10 IN AM
Pharmacokinetics Vancomycin I
- -
Patient Age: 73
Patient Sex: Female
Vancomycin Day #: 1
Indication: Bacteremia
Requesting Provider: MAGDA
Height / Weight:
Height 5 ft 4 in
Actual Weight 64.5 kg
IBW in k.7
- Vital Signs / Lab Results
Temp Pulse Resp BP Pulse Ox
98.1 F 94 19 94/57 91
01/01/24 10:30 01/01/24 11:04 01/01/24 11:04 01/01/24 11:04 01/01/24 11:04
Lab Results - Hematology
12/31/23 01/01/24 01/01/24
13:05 03:31 05:10
WBC 12.7 H 8.7 8.1
Band Neutrophils 15 H
Lab Results - Chemistry
12/31/23 12/31/23 12/31/23
13:05 14:41 19:53
BUN Cancelled 83 H 82 H
Creatinine Cancelled 2.6 H 2.4 H
Estimated Creat Clear Cancelled 16 18
Albumin Cancelled 2.6 L
01/01/24 01/01/24 01/01/24
01:11 03:31 05:10
BUN 83 H 84 H 83 H
Creatinine 2.3 H 2.3 H 2.3 H
Estimated Creat Clear 19 19 19
Albumin 2.5 L
12/31/23 01/01/24
19:53 10:07
Lactic Acid 1.0 0.9
Lab Results - Urine
12/31/23
16:38
Urine Nitrite (Reflex) Negative
Leukocyte Esterase Rfl Negative
[2024-01-01] MEDS: NOVOLIN N vial 0.1 UNITS SC (12:40)
[2024-01-01] MEDS: NOVOLOG FLEXPEN-MODERATE RESISTANCE 5 UNITS SC (12:40)
[2024-01-01 12:51] LABS: Glucose - Point of Care 266 mg/dl (70-99)
[2024-01-01] MEDS: ZOSYN 50 IV ×2 (13:08→20:22)
[2024-01-01] MEDS: VANCOCIN 300 ML IV (13:20)
[2024-01-01] MEDS: VANCOCIN 300 MG IV (13:20)
--- NOTE | 2024-01-01 14:01 | PTCARENOTE ---
Pt received as transfer from [facility] s/p paracentesis in IR. Admission documentation incomplete upon patient transfer. Pt was admitted day prior. Skin check preformed with second RN. RACH noted to sacrum. Band-aid over paracentesis site. Skin
otherwise intact. Pt AAOx3; however, confused and hallucinating at times. NSR on alarm security or surveillance monitor. SpO2 91% on 6L nasal cannula. VSS. Bcx drawn and sent to lab. Assessment documented. Pt resting bed, call reece in reach.
--- NOTE | 2024-01-01 14:18 | CON.ID ---
Consultation
-
Date/Time Consultation Requested: 01/01/2024 1147
Date/Time Consultation Performed: 01/01/2024 1400
Requesting Provider: Dr. Leyva
Performing Provider: Dr. Sierra
Reason for Consultation: Suspected SBP
Chief Complaint / Past History
History of Present Illness
Joceline Torres is a 73-year-old female being evaluated at the request of Dr. Leyva in regards to suspected SBP. History is obtained from chart review, along with patient interview.
The patient has an underlying history of breast cancer, along with recently diagnosed pancreatic cancer (approximately 2 weeks ago). She reports that she has been having abdominal pain for many months (possibly since July). Workup for the abdominal
discomfort included MRI, which was shown to have a dilated pancreatic duct. She underwent an upper EUS on 12/06/2023, and pathology obtained at that time revealed adenocarcinoma. She reports that she was to follow-up with Oncology at [facility], but over
the past 2 weeks she has had progressive abdominal distention, decreased p.o. intake and increasing abdominal pain. Additionally she admits to some fevers at home. Ultimately, she became so weak that she was brought to the hospital for further
evaluation.
Hospital course here has been significant for paracentesis which has been shown to have a significant white count, and Infectious Diseases is asked to comment upon the possibility of SBP.
At this point in time she reports feeling exceedingly weak. She has ongoing abdominal discomfort throughout the abdomen diffusely. She reports that it is constant in nature. She admits to chronic diarrhea. Overnight she was found to have
increasing work of breathing, and has now been transferred to the IMU.
Past History
Additional Past Medical History:
Breast cancer
Pancreatic cancer (new diagnosis)
HTN
Dyslipidemia
DM
Bronchiolitis
Sinusitis
Hx colon polyps
GERD
Nephrolithiasis
Additional Past Surgical History:
Appendectomy
Hysterectomy
Lithotripsy with ureteral stenting
Allergy History:
No Known Allergies Allergy (Verified 12/06/23 07:14)
Medications Reviewed: Yes
Current Antibiotics:
Zosyn 2.25 g IV every 8 hours
Vancomycin (dosing per pharmacy)
Social History
Tobacco: Non-Smoker
Alcohol: None
Drug: None
Personal:
Living: With Family
Employment: Retired
Family History
Family History: Not Pertinent
Review of Systems
Vital Signs
Temp Pulse Resp BP Pulse Ox
98.5 F 94 19 94/57 91
01/01/24 11:35 01/01/24 11:04 01/01/24 11:04 01/01/24 11:04 01/01/24 11:04
Physical Exam
Physical Exam
Constitutional: No Acute Distress, Comfortable and Non-toxic
Head: Normocephalic
Eyes: No Conjunctival Hemorrhage and Sclera Anicteric
Oral: No Thrush and No Ulcers
Cardiovascular: Regular Rate and S1/S2; Negative S3/S4
Pulmonary: Clear and Non Labored; Negative Wheezes or Rales
Gastrointestinal: Soft, Tender, Distended, Decreased Bowel Sounds, No Rebound and No Guarding
Extremities: Negative Edema, Cyanosis or Erythema
Skin: Negative Rash or Jaundice
Neurological: Awake and Alert
Psychological: Calm
.
Lab / Diagnostic Study Results
01/01/24 05:10
01/01/24 05:10
Abs Immat Gran (auto) 0.0 10^3/uL (0-0.05) 01/01/24 03:31
Absolute Neuts (auto) 7.3 10^3/uL (1.4-6.5) H 01/01/24 03:31
Absolute Lymphs (auto) 0.4 10^3/uL (1.2-3.4) L 01/01/24 03:31
Absolute Monos (auto) 0.8 10^3/uL (0.1-0.6) H 01/01/24 03:31
Absolute Basos (auto) 0.0 10^3/uL (0-0.2) 01/01/24 03:31
Total Counted 100 01/01/24 05:10
Immature Gran % 0.5 % (0-0.5) 01/01/24 03:31
Neutrophils % 84.7 % (42.2-75.2) H 01/01/24 03:31
Lymphocytes % 4.6 % (20.5-51.1) L 01/01/24 03:31
Monocytes % 9.7 % (1.7-9.3) H 01/01/24 03:31
Eosinophils % 0.2 % (0-6) 01/01/24 03:31
Basophils % 0.3 % (0-2) 01/01/24 03:31
Abs Neuts (Manual) 6.3 10^3/uL (1.4-6.5) 01/01/24 05:10
Segmented Neutrophils 64 % (42-75) 01/01/24 05:10
Band Neutrophils 15 % (0-3) H 01/01/24 05:10
Lymphocytes (Manual) 12 % (20-51) L 01/01/24 05:10
Eosinophils (Manual) 1 % (0-6) 01/01/24 05:10
Lactic Acid 0.9 mmol/L (0.7-2.0) 01/01/24 10:07
Microbiology Results
Micro:
01/01/24 12:56 Blood Culture - Pending
Blood/Venous
01/01/24 12:34 Blood Culture - Pending
Blood/Venous
01/01/24 10:49 Body Fluid Culture - Pending
Peritoneal Fluid Gram Stain - Pending
Laboratory Tests
01/01/24
10:49
Fluid WBC 1343
Fluid Mononuclear Cell 34.1
Fl Polymorphonucl Cell 65.9
Imaging:
11/14/2023 Abdominal MRI: Pancreas appears overall atrophic. An ill-defined focus of heterogeneous T2 signal and hypoenhancement along the pancreatic body, which is similar to prior CT. Mild dilatation of the main duct within the distal body and
tail. Perihepatic and perisplenic free fluid which tracks into the paracolic gutters. Findings may represent focal pancreatitis, although findings are suspicious for malignancy. Prominent upper abdominal lymph nodes are noted, but similar to a
prior CT. Please see full dictation for additional detail.
Assessment / Plan
Abdominal pain
Ascites with significant white count; suspected SBP
Leukocytosis
Poor appetite
Pancreatic cancer (not on therapy as of yet)
Hyponatremia
VIRGIILO (current est. CrCl ~ 19)
Acute hypoxemic respiratory failure
Hx Breast cancer
HTN
Dyslipidemia
DM
Bronchiolitis
Sinusitis
Hx colon polyps
GERD
Nephrolithiasis
Recommendations:
Continue with Zosyn for the present. Further vancomycin can likely be discontinued for now unless cultures reveal the presence of a resistant organism.
Monitor white count and temperature curve.
Await ascites fluid culture to further direct antimicrobial selection and potential de-escalation.
Continue with supportive measures, including volume repletion.
Care Review
Plan reviewed with: Physician (Hospitalist)
--- NOTE | 2024-01-01 14:48 | W.PN.NEPH.PH ---
Today's Communication / Plan
-
see plan
Assessment/Plan
-
IMP:
VIRGILIO:
hyperkalemia
hyponatremia
Abdominal distention with ascites
Anemia
Leucocytosis
Thrombocytosis
Recently diagnosed pancreatic cancer (12/06/23)
Chronic HFpEF
DM2
h/o pulmonary nodules
Essential HTN
HLD
Depression
Plan:
A/w FTT and poor po intake, recent diagnosis of pancreatic cnacer
VIRGILIO-cr baseline 0.8 on 12/26
suspect prerenal, bland UA, U na low 5, oliguric on harden
no post obst pathology on US
Hyperkalemia-improving slowly s/p lasix, redose LOkelma prn
non gap met acidosis -improving slowly, cont to hold metformin, normal Lactate, add po bicarb
BNP is high and acute resp distress today , CXR shows only mild pleural effusion
agree to hold IVF and ok to use lasix as needed
Hyponatremia-improving, seem multifactorial specially with underlying malignancy
high ADH state-U osmo 333, maintain FR 40ounces/day
BP soft, hold all BP med, including ARB
She feels better post paracentesis of 900cc, ID follows with concern of SBP
avoid nephrotoxins
follow h/h-decreasing, microcytic -check fe studies
d/w pt and nursing
-
-
Date of Service: January 01, 2024
CC / HPI / ROS
-
Chief Complaint:
VIRGILIO, high k, met acidosis
History of Present Illness:
cr mild improvement to 2.3, oliguric, folay place today
BP soft, hb low 7.6
ph 7.36, pOC2 29. s bicarb 17
overnight had sob, s/p lasix, off IVF this am
s/p paracentesis of 900cc today
on 6lit of O2
Review of Systems:
no cp
abd pain and sob better post tap
no fever
Labs
-
Labs:
WBC 8.1 10^3/uL (4.8-10.8) 01/01/24 05:10
RBC 2.71 10^6/uL (4.20-5.40) L 01/01/24 05:10
Hgb 7.6 g/dL (12.0-16.0) L 01/01/24 05:10
Hct 21.6 % (37.0-47.0) L 01/01/24 05:10
Plt Count 546 10^3/uL (130-400) H 01/01/24 05:10
Sodium 130 mmol/L (135-145) L 01/01/24 05:10
Potassium 5.2 mmol/L (3.5-5.1) H 01/01/24 05:10
Chloride 95 mmol/L (98-107) L 01/01/24 05:10
Carbon Dioxide 17 mmol/L (22-30) L 01/01/24 05:10
BUN 83 mg/dl (7-17) H 01/01/24 05:10
Creatinine 2.3 mg/dL (0.6-1.0) H 01/01/24 05:10
eGFR 21.76 01/01/24 05:10
Glucose 274 mg/dl (70-99) H 01/01/24 05:10
Calcium 8.3 mg/dl (8.4-10.2) L 01/01/24 05:10
Hqo-R-Xgmayraimml Pept 1900 pg/ml 12/31/23 14:41
Albumin 2.5 g/dl (3.5-5.0) L 01/01/24 03:31
Physical Exam
-
Vital Signs:
Vital Signs
Temp Pulse Resp BP Pulse Ox
98.5 F 87 22 103/53 93
01/01/24 11:35 01/01/24 14:15 01/01/24 14:15 01/01/24 14:13 01/01/24 14:46
Cardiovascular:: Regular rate and rhythm
Respiratory:: Bilateral: Coarse
Lung Excursion:: Normal
Abdomen:: Distended, Nontender and Soft
Extremity Edema:: None: Bilateral:
Harden Catheter: Yes
[2024-01-01 16:20] LABS: Glucose - Point of Care 197 mg/dl (70-99)
[2024-01-01] MEDS: SODIUM BICARBONATE PO ×2 (16:26→18:16)
[2024-01-01] MEDS: NOVOLOG FLEXPEN-MODERATE RESISTANCE 1 UNITS SC (16:38)
[2024-01-01 17:42] LABS: D-Dimer 8.32 ug/mlFEU (0.00-0.50)
--- NOTE | 2024-01-01 19:05 | PTCARENOTE ---
Pt maintaining sat at 86% on 6L. Respiratory to bedside. Pt placed on 10L midflow by RT. Spo2 94% on 10L midflow.
--- NOTE | 2024-01-01 21:01 | PTCARENOTE ---
Pt received from previous RN. Pt can answer all orientation questions, however forgetful at times and frequently asking the same questions. Pt speaks in low voice. Pt son and at bedside, providing emotional reassurance to Pt. Pt on 10L
midflow, satting 94%, Pt removed 02 accidentally and desatted to 80%, Pt quickly recovered back to 90's when [address] replaced[address] draining yellow urine. Son remains at bedside, Pt denies further needs at this time. Call light in reach.
[2024-01-01 21:56] LABS: Glucose - Point of Care 180 mg/dl (70-99)
[2024-01-01] MEDS: LANTUS 0.1 UNITS SC (22:14)
[2024-01-01] MEDS: SODIUM BICARBONATE 650 MG PO (22:16)
[2024-01-02] VITALS (11 sets, daily range): BP systolic 98–125; BP diastolic 47–72; BMI 24.4
[2024-01-02] MEDS: DILAUDID 0.5 MG IV (00:37)
[2024-01-02] MEDS: ZOSYN 50 IV ×3 (04:29→21:22)
--- NOTE | 2024-01-02 05:28 | PTCARENOTE ---
Pt refusing AM labs. This RN explained the intervention and educated on necessity calmly and provided emotional reassurance. Son at bedside. insurance claims representative notified. Will inform dayshift RN to retry as well.
--- NOTE | 2024-01-02 06:30 | PTCARENOTE ---
Pt becoming increasingly agitated this am, calling out 'help' and calling for her son, grabbing, scratching, and kicking at staff. Not allowing staff to provided any care interventions. Pt grabbing at oxygen tubing and removing it, grabbing at
harden. RN attempted to reorient, with calm voice, unsuccessful. TRIAL COURT JUDGE notified. order received for soft limb b/l restraints, 4 rails, and mitts b/l. restraints applied. son at bedside.
[2024-01-02 07:47] LABS: Glucose - Point of Care 219 mg/dl (70-99)
[2024-01-02 08:29] LABS: Blood Urea Nitrogen 89 mg/dl (7-17); Calcium 8.4 mg/dl (8.4-10.2); Carbon Dioxide 22 mmol/L (22-30); Chloride 94 mmol/L (98-107); Estimated Creatinine Clearance 18 ml/min; Glucose 208 mg/dl (70-99); Iron 23 ug/dl (37-170); Potassium 4.8 mmol/L (3.5-5.1); Sodium 133 mmol/L (135-145); eGFR 20.68
[2024-01-02 08:38] LABS: Percent Saturation 10 % (20-50); Total Iron Binding Capacity 214 ug/dl (265-497)
[2024-01-02] MEDS: NOVOLOG FLEXPEN-MODERATE RESISTANCE 3 UNITS SC ×2 (09:43→11:59)
[2024-01-02] MEDS: SENOKOT-S 1 TABLET PO (09:44)
[2024-01-02] MEDS: TYLENOL 650 MG PO (09:44)
[2024-01-02] MEDS: HEPARIN 5000 UNITS SC ×2 (09:44→16:51)
[2024-01-02] MEDS: SODIUM BICARBONATE 650 MG PO ×3 (09:44→21:23)
--- NOTE | 2024-01-02 09:44 | W.PN.PUL.V3 ---
Today's Communication / Plan
-
Supplemental oxygen
Antibiotics
VQ scan
Consider anticoagulation
Nephrology following
Assessment
-
Patient is a 73-year-old female with previous history of recently diagnosed pancreatic cancer, hypertension, HLD presenting to ER with progressive generalized weakness, abdominal distention, decreased p.o. intake. In ER she was found to be in
acute kidney injury with creatinine 2.6, potassium 5.8, sodium 127. She has not undergone treatment yet for her cancer as she has an appointment coming up at [facility] on Tuesday. She is admitted for acute dehydration and renal failure. She has been
placed on supplemental O2 for hypoxemia requiring 6 L. Chest x-ray demonstrating small left pleural effusion.
Acute hypoxemic respiratory failure
Shortness of breath
Generalized weakness, abdominal distention, decreased p.o. intake
VIRGILIO
Acute dehydration
Hyperkalemia
Hyponatremia
Recent diagnosis of pancreatic cancer
D-dimer elevation-lower extremity ultrasound negative, VQ scan pending
Conditions present prior to admission:
Multiple pulmonary nodules per CT chest, largest 7 mm, followed by Dr Herrera
Obstructive sleep apnea on AutoPap
Total AHI 12.3 sleep study June 2018
Chronic rhinitis/bronchiolitis/sinusitis
Improved FEV1 since 2019 on nebulized therapy
History of sinus surgery/followed by ENT ([facility])
GERD, Fernandez's esophagitis per history
History of insulin-dependent diabetes
HLD
HTN
History of breast cancer
Mastectomy with TRAM FLAP reconstruction
Hysterectomy
Appendectomy
Pilonidal cyst excision
Ovarian cystectomy
Right ureteroscopy/laser litho and stent 07/2017
Sinus surgery 05/2019
Plan
Respiratory status remains tenuous
Continue supplemental oxygen-attempt to wean
Not on home oxygen-will need to assess prior to discharge
Aspiration precautions
Add nebulizers- states she benefited from them in the past as well as inhalers
Incentive spirometry
Mucus clearing devices
CPAP at night
Check cultures
Sputum culture if possible
Infectious disease following-correspondence reviewed
Empiric antibiotics-Zosyn initiated
D-dimer elevated-not surprising with pancreatic cancer-very hypercoagulable state
Lower extremity ultrasound 01/01/2024-negative
VQ scan 01/02/2024-pending
Low threshold for converting to full anticoagulation
Echocardiogram
Recent history of pancreatic cancer
Has not yet received treatment, to be followed at [facility]
Consider oncological opinion locally-quite poor performance status at this point-with unlikely be able to tolerate induction chemotherapy unless improves
Monitor abdominal distention
Nephrology following for VIRGILIO and acute hyperkalemia-correspondence reviewed
DVT prophylaxis-on subcu heparin
Reviewed with nursing as well as at the bedside and Dr. Rivera
Last saw Dr. Herrera 09/13/2023 and has appointment 10:45 AM 01/11/2024
Diagnostic Data
Chest X-Ray: 01/01/24- Small left pleural effusion, likely slightly decreased in size compared to the chest radiograph from 12/31/2023.
CT Scan: CHEST 11/02/23-There are numerous subcentimeter nodules, most pronounced within the bilateral lower lobes. The largest of which measures approximately 7 mm mm in the left lower lobe (series 201 image 35) and 7 mm in the right lower lobe
(series 201 image 35). There is atelectasis/scarring within the medial right lower lobe with associated minimal bronchiectasis, likely due to adjacent prominent osteophyte. Overall slightly increased in size from prior. Findings are most suspicious
for pulmonary metastases. There is new perisplenic and perihepatic free fluid in the upper abdomen.
Echo: 11/02/23- Normal biventricular size and systolic function without regional wall motion abnormality. No significant valvular disease. No prior study available for comparison.
PFT's: 08/2023-Testing essentially normal other than moderate gas exchange defect
Subjective Data
-
Date of Service:
Date of Service: January 02, 2024
Chief Complaint: Pulmonary Follow Up and Dyspnea Follow Up
Subjective:
Not sleeping well, still short of breath, no chest pain, productive cough, continues with some abdominal distention
Review of Systems
General: Other ( per HPI)
Objective Data
Data Reviewed
Vital Signs / I&O:
Vital Signs
Temp Pulse Resp BP Pulse Ox
98.2 F 96 17 121/72 100
01/02/24 07:05 01/02/24 08:30 01/02/24 08:30 01/02/24 06:00 01/02/24 08:30
Intake and Output
01/01/24 01/02/24 01/03/24
06:59 06:59 06:59
Intake Total 1320 / 1320
Output Total 250 / 250 260 / 260
Balance 1070 / 1070 -260 / -260
SaO2: 100
Nasal Cannula flow liters per minute: 5
Physical Exam
General: Respiratory Distress (n) and Comfortable
HEENT: Normocephalic, Anicteric and Moist Mucous Membranes
Cardiovascular: Regular Rhythm
Respiratory: Clear (Diminished breath sounds and prolonged expiratory time), Wheeze (Forced expiratory), Crackles (Few basilar), Non-Labored Respirations, Accessory Resp Muscle Use (n) and Stridor
GI: Soft, Distended and Other (Ascites)
Neurology: Awake, Alert, No Motor Deficits and Depressed (As well as anxious)
Skin: Warm, Good Color, Cyanosis (n), Jaundice (n) and Rash (n)
Labs/Micro/Reports
Lab Data
01/01/24 05:10
01/02/24 07:56
Microbiology
01/01/24 10:49 Peritoneal Fluid Body Fluid Culture - Preliminary
No Growth After 18-24 Hours
01/01/24 10:49 Peritoneal Fluid Gram Stain - Preliminary
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
[2024-01-02] MEDS: DUONEB 3 ML INH (11:43)
[2024-01-02 11:59] LABS: Glucose - Point of Care 205 mg/dl (70-99)
[2024-01-02 12:00] LABS: Hematocrit 25.4 % (37.0-47.0); Mean Corp Hgb Conc. 35.4 g/dL (33.0-37.0); Mean Corpuscular Volume 78.9 fL (81.0-99.0); Mean Platelet Volume 8.6 fL (7.4-10.4); Platelet Count 474 10^3/uL (130-400); Red Blood Cell Count 3.22 10^6/uL (4.20-5.40); Red Cell Dist. Width 18.1 % (11.5-14.5); White Blood Cell Count 6.7 10^3/uL (4.8-10.8)
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
--- NOTE | 2024-01-02 16:17 | PTCARENOTE ---
Addendum entered by Felice Gentile RN 01/02/24 16:18:
Plan reviewed with Dr. Rivera, holding off IVF at this time. [facility] discussions ongoing.
Original Note:
Pt still off floor for testing (VQ Scan and CT head) - will hang Ferritin when pt returns.
--- NOTE | 2024-01-02 16:19 | W.CON.PAL ---
Addendum entered and electronically signed by Goldie Stroud MD 01/02/24 16:52:
Addendum: Spoke to Son to check in regarding oncology telephone call. Son had spoken to [facility] oncologist. He reports that PET scan showed tumor involvement of the pancreas + 1 nodule lit up in the neck - unclear if this is cancer. pulmonary nodules
were negative. [facility] oncologist aware of breathing issues, kidney issues. Surgery no longer an option, but if able to recover some strength, may still offer chemo. They moved their office appointment to next tuesday. Oncologist requesting that
ascitic fluid also be sent for malignancy. Son reports that mom seems better overall today compared to last night, and even asked for some dinner which is a first in a week. Family aware that her condition is poor and may not recover enough for
chemo, they had discussed hospice as a family, with [facility], and with me today - they want to take it day by day before they decide.
Updated attending with my conversation above
Original Note:
Consultation
-
Date/Time Consultation Requested: 01/01/2024
Date/Time Consultation Performed: 01/02/2024
Requesting Provider: Dr. Leyva
Performing Provider: Dr. Stroud
Reason for Consult: Goals of Care Discussion
Primary Diagnosis: Pancreatic Cancer
Related Diagnosis: Acute hypoxic respiratory failure
Consult Requested By: Patient's Physician
Reason for Admission
Illness Course/HPI
Joceline is a 73 y/o female who was diagnosed with pancreatic cancer in the last few months. Had initial appointment with Dr. christian at [facility] dec 21, PET scan for staging Dec 27 at [facility], and were to see Dr. Cadena oncology
surgeon at [facility] tomorrow along with fire pilot at [facility]. They started home palliative care with [facility] on tuesdayDec 29. Ascites managed as an ouptatient with oral lasix.
She was hospitalized becuase of worsening weakness, and poor oral intake.
In the ER was found to have VIRGILIO with cr of 2.6. Over the weekend developed respiratory symptoms, oxygen upto 6L by HI. also noted to have leukocytosis. Received paracentesis with 900 ml output. Last night severe agitation with paranoia. Family feels
related to dilaudid as had similar response to oxycodone when given as an outpatient, had tolerated morphine at home
Palliative Care Consulted to Review goals of care
Functional Status
At her baseline 2 weeks ago, she was independent of care needs, and driving short distances. had abdominal distension, but manage with diuretics.
Oral intake has decreased in past two weeks with increased edema
Goals of Care Discussion
-
Individuals Present for Discussion & Relationship to Patient:
Patient
Spouse Edward
Son Felix
Sister Kimberly.
Patient able to participate in discussion at time of visit: Yes
Patient's Information Preferences: Fully Involved/Able to Participate
Patient Goals
Advanced directives: has a living will, no copy in outpatient or outpatient records. Health care POA would be her spouse Edward followed by her sons Felix & Leonardo
At her appointment with her oncologist 2 weeks ago, the plan was either for chemo or surgery followed by chemo. Her condition has declined significantly in the past week.
At the very end of life, her goals are comfort oriented, however, patient is not prepared yet to make that transition as she is still waiting on results of her PET scan from her oncologist. She wishes for this piece of information before making a
decision and wishes to speak to him. As a family, their immediate goals are stabilize the breathing to allow her to get to the oncology visit - originally scheduled for tomorrow, but will need to be moved. Encouraged them to ask if they could do a
televist wtih the oncologist to find out this piece of information. She is also getting a CT of head and VQ scan today.
Family is supportive of her decisions, and knows that she may not tolerate much, however are not ready to 'throw in the towel' with hospice yet.
Joceline is aware that she will have to make decisions soon, expresses fear about making the wrong decision, but was reassurred by family that they will support her.
Discussed code status - and that now she is full code - patient unwilling to change this at this time.
Pain & Symptom Assessment
Patient Symptoms
Patient Symptoms: Pain
[place] Symptom Scale 0=none, 10=worst
Pain: 5
Appetite: 0
Shortness of Breath: 3
-
Patient reports abdominal pain, but does not want to take strong opioids due to fear of confusion.
Constipation - no bm since tue. RN aware
Nutrition - poor appetite/poor oral intake
Dyspnea - minimal at rest, on oxygen
Agitation - resolved, patient is calm at present and able to converse
Objective Data
-
Objective Data:
Vital Signs
Temp Pulse Resp BP Pulse Ox
97.9 F 89 16 103/55 95
01/02/24 11:05 01/02/24 14:00 01/02/24 14:00 01/02/24 14:00 01/02/24 14:00
Laboratory Results
01/02/24 11:44
01/02/24 07:56
Total Protein 5.8 g/dl (6.3-8.2) L 01/01/24 03:31
Albumin 2.5 g/dl (3.5-5.0) L 01/01/24 03:31
Urine Color Yellow 12/31/23 16:38
Urine Clarity Clear (Clear) 12/31/23 16:38
Urine pH 5.0 (5.0-9.0) 12/31/23 16:38
Ur Specific [place] 1.025 (<1.030) 12/31/23 16:38
Urine Ketones Trace (Negative) A 12/31/23 16:38
Urine Bilirubin 1+ (Negative) A 12/31/23 16:38
Palliative Performance Score Response
Palliative Performance Score Response: 40%
Physical Exam
-
General: Comfortable and Appears Chronically Ill
HEENT: Oxygen
GI: Distended and Ascites
Psych: Calm and Other (no current agitation. patient tearful )
Assessment / Plan
-
Assessment/Plan:
Goals of care:
Patient is already active with [facility]
goals are palliative/treatment oriented. not ready yet for hospice, but awaiting additional information from outside hospital
Full code - but patient reports she may change this soon
Constipation - bowel regimen available
Pain - avoid dilaudid. patient prefers tylenol, tolerated morphine as an outpatient, however can also cause confusion.
Poor intake - was taking glucerna 2 per day at home, ? nutrition consult
Dyspnea - workup per primary team - for vq scan today
Care Reviewed
Data Reviewed
Reviewed with: Patient and Family
[2024-01-02] MEDS: DUONEB INH ×3 (16:40→19:58)
[2024-01-02] MEDS: FERRLECIT 110 MG IV (16:51)
[2024-01-02] MEDS: NOVOLOG FLEXPEN-MODERATE RESISTANCE SC (16:51)
[2024-01-02 16:55] LABS: Glucose - Point of Care 126 mg/dl (70-99)
[2024-01-02] MEDS: LANTUS 0.1 UNITS SC (21:22)
[2024-01-02 21:32] LABS: Glucose - Point of Care 183 mg/dl (70-99)
[2024-01-03] VITALS (19 sets, daily range): BP systolic 85–123; BP diastolic 46–65; PULSE 78–90; O2SAT 97
[2024-01-03] MEDS: HEPARIN 5000 UNITS SC ×3 (00:20→16:33)
[2024-01-03] MEDS: ZOSYN 50 IV ×3 (04:39→19:48)
[2024-01-03 05:50] LABS: Hematocrit 26.1 % (37.0-47.0); Mean Corp Hgb Conc. 34.5 g/dL (33.0-37.0); Mean Corpuscular Volume 78.4 fL (81.0-99.0); Mean Platelet Volume 8.6 fL (7.4-10.4); Platelet Count 496 10^3/uL (130-400); Red Blood Cell Count 3.33 10^6/uL (4.20-5.40); Red Cell Dist. Width 18.5 % (11.5-14.5); White Blood Cell Count 11.9 10^3/uL (4.8-10.8)
[2024-01-03 06:12] LABS: Blood Urea Nitrogen 92 mg/dl (7-17); Calcium 8.3 mg/dl (8.4-10.2); Carbon Dioxide 22 mmol/L (22-30); Chloride 98 mmol/L (98-107); Estimated Creatinine Clearance 20 ml/min; Glucose 157 mg/dl (70-99); Magnesium 1.7 mg/dl (1.6-2.3); Potassium 4.1 mmol/L (3.5-5.1); Sodium 136 mmol/L (135-145); eGFR 24.27
[2024-01-03] MEDS: DUONEB 3 ML INH ×4 (07:35→20:14)
[2024-01-03 08:24] LABS: Glucose - Point of Care 174 mg/dl (70-99)
[2024-01-03] MEDS: TYLENOL 650 MG PO ×2 (08:53→19:47)
[2024-01-03] MEDS: SODIUM BICARBONATE 650 MG PO ×3 (08:53→19:47)
[2024-01-03] MEDS: NOVOLOG FLEXPEN-MODERATE RESISTANCE 1 UNITS SC ×3 (08:55→16:34)
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
--- NOTE | 2024-01-03 09:56 | CM ---
Patient seen at bedside with physician and patient son present. Patient sleeping. Patient son indicated that he would review with family referral options and that they were considering SNF for STC. CM reviewed PAC data and Medicare.gov. CM will
continue to follow for discharge planning needs.
Plan; pending PT/OT for functional recommendations; SNF referrals as family make choice.
--- NOTE | 2024-01-03 09:59 | PTCARENOTE ---
Patient AAOxself, stating she wants to go home. Son, Edward, at bedside comforting her. Took meds with applesauce. Chronic harsh cough. 3L NC, 95%. VSS. Q2 turn. Poor appetite. Will closely monitor.
--- NOTE | 2024-01-03 10:15 | W.PN.NEPH.PH ---
Today's Communication / Plan
-
IVF
Assessment/Plan
-
IMP:
VIRGILIO:
hyperkalemia
hyponatremia
Abdominal distention with ascites
Anemia
Leucocytosis
Thrombocytosis
Recently diagnosed pancreatic cancer (12/06/23)
Chronic HFpEF
DM2
h/o pulmonary nodules
Essential HTN
HLD
Depression
Plan:
follow BMP
IVF
-
-
Date of Service: January 03, 2024
CC / HPI / ROS
-
Chief Complaint:
VIRGILIO, high k, met acidosis
History of Present Illness:
VIRGILIO/Cr down to 2.1
Na up to 136
BUN up to 92
K normal
Mata in place
BP stable
po intake poor
Review of Systems:
no CP/SOB
Labs
-
Labs:
WBC 11.9 10^3/uL (4.8-10.8) H 01/03/24 05:35
RBC 3.33 10^6/uL (4.20-5.40) L 01/03/24 05:35
Hgb 9.0 g/dL (12.0-16.0) L 01/03/24 05:35
Hct 26.1 % (37.0-47.0) L 01/03/24 05:35
Plt Count 496 10^3/uL (130-400) H 01/03/24 05:35
Sodium 136 mmol/L (135-145) 01/03/24 05:35
Potassium 4.1 mmol/L (3.5-5.1) 01/03/24 05:35
Chloride 98 mmol/L (98-107) 01/03/24 05:35
Carbon Dioxide 22 mmol/L (22-30) 01/03/24 05:35
BUN 92 mg/dl (7-17) H 01/03/24 05:35
Creatinine 2.1 mg/dL (0.6-1.0) H 01/03/24 05:35
eGFR 24.27 01/03/24 05:35
Glucose 157 mg/dl (70-99) H 01/03/24 05:35
Calcium 8.3 mg/dl (8.4-10.2) L 01/03/24 05:35
Oip-U-Wzhunxhjpzk Pept 1900 pg/ml 12/31/23 14:41
Albumin 2.5 g/dl (3.5-5.0) L 01/01/24 03:31
Physical Exam
-
Vital Signs:
Vital Signs
Temp Pulse Resp BP Pulse Ox
97.7 F 81 19 91/53 95
01/03/24 07:54 01/03/24 08:00 01/03/24 08:00 01/03/24 08:00 01/03/24 08:00
Cardiovascular:: Regular rate and rhythm
Respiratory:: Bilateral: CTA
Lung Excursion:: Normal
Abdomen:: Nontender and Soft
Bowel Sounds:: Normal
Extremity Edema:: None: Bilateral:
--- NOTE | 2024-01-03 10:16 | W.PN.PUL.V3 ---
Today's Communication / Plan
-
Wean oxygen
Decrease Dilaudid with mental status changes
Antibiotics
Nebulizers
Assessment
-
Patient is a 73-year-old female with previous history of recently diagnosed pancreatic cancer, hypertension, HLD presenting to ER with progressive generalized weakness, abdominal distention, decreased p.o. intake. In ER she was found to be in
acute kidney injury with creatinine 2.6, potassium 5.8, sodium 127. She has not undergone treatment yet for her cancer as she has an appointment coming up at [facility] on Tuesday. She is admitted for acute dehydration and renal failure. She has been
placed on supplemental O2 for hypoxemia requiring 6 L. Chest x-ray demonstrating small left pleural effusion.
Acute hypoxemic respiratory failure
Shortness of breath
Generalized weakness, abdominal distention, decreased p.o. intake
VIRGILIO
Acute dehydration
Hyperkalemia
Hyponatremia
Recent diagnosis of pancreatic cancer
D-dimer elevation-lower extremity ultrasound negative, VQ scan-low probability
Toxic metabolic encephalopathy/delusional
Conditions present prior to admission:
Multiple pulmonary nodules per CT chest, largest 7 mm, followed by Dr Herrera
Obstructive sleep apnea on AutoPap
Total AHI 12.3 sleep study June 2018
Chronic rhinitis/bronchiolitis/sinusitis
Improved FEV1 since 2019 on nebulized therapy
History of sinus surgery/followed by ENT ([facility])
GERD, Fernandez's esophagitis per history
History of insulin-dependent diabetes
HLD
HTN
History of breast cancer
Mastectomy with TRAM FLAP reconstruction
Hysterectomy
Appendectomy
Pilonidal cyst excision
Ovarian cystectomy
Right ureteroscopy/laser litho and stent 07/2017
Sinus surgery 05/2019
Plan
Respiratory status remains tenuous
Continue supplemental oxygen-attempt to wean
Not on home oxygen-will need to assess prior to discharge
Aspiration precautions
Continue nebulizers-family believes she responded positively in the outpatient setting though she was not taking it for the last 2 to 4 weeks
Incentive spirometry
Mucus clearing devices
CPAP at night if able
Check cultures
Blood culture /--01/01/2024-positive culture in progress
Sputum culture if possible
Infectious disease following-correspondence reviewed
Empiric antibiotics-Zosyn initiated
D-dimer elevated-not surprising with pancreatic cancer-very hypercoagulable state
Lower extremity ultrasound 01/01/2024-negative
VQ scan 01/02/2024-very low probability
Low threshold for converting to full anticoagulation
Echocardiogram
Recent history of pancreatic cancer
Has not yet received treatment, to be followed at [facility]-will need to delay appointment
Local oncological opinion declined by family
Monitor abdominal distention
Nephrology following for VIRGILIO and acute hyperkalemia-correspondence reviewed
DVT prophylaxis-on subcu heparin every 8 hours
Reviewed with nursing as well as sister and son at the bedside
Last saw Dr. Herrera 09/13/2023 and has appointment 10:45 AM 01/11/2024
Diagnostic Data
Chest X-Ray: 01/01/24- Small left pleural effusion, likely slightly decreased in size compared to the chest radiograph from 12/31/2023.
CT Scan: CHEST 11/02/23-There are numerous subcentimeter nodules, most pronounced within the bilateral lower lobes. The largest of which measures approximately 7 mm mm in the left lower lobe (series 201 image 35) and 7 mm in the right lower lobe
(series 201 image 35). There is atelectasis/scarring within the medial right lower lobe with associated minimal bronchiectasis, likely due to adjacent prominent osteophyte. Overall slightly increased in size from prior. Findings are most suspicious
for pulmonary metastases. There is new perisplenic and perihepatic free fluid in the upper abdomen.
Echo: 11/02/23- Normal biventricular size and systolic function without regional wall motion abnormality. No significant valvular disease. No prior study available for comparison.
PFT's: 08/2023-Testing essentially normal other than moderate gas exchange defect
Subjective Data
-
Date of Service:
Date of Service: January 03, 2024
Chief Complaint: Pulmonary Follow Up and Dyspnea Follow Up
Subjective:
Intermittently agitated, some shortness of breath, minimal wheezing, no chest pain or abdominal pain
Review of Systems
General: Other (Per HPI)
Objective Data
Data Reviewed
Vital Signs / I&O:
Vital Signs
Temp Pulse Resp BP Pulse Ox
97.7 F 81 19 91/53 95
01/03/24 07:54 01/03/24 08:00 01/03/24 08:00 01/03/24 08:00 01/03/24 08:00
Intake and Output
01/02/24 01/03/24 01/04/24
06:59 06:59 06:59
Intake Total 160 / 160
Output Total 260 / 260 750 / 750
Balance -260 / -260 -590 / -590
SaO2: 95
Nasal Cannula flow liters per minute: 3
Physical Exam
General: Respiratory Distress (n) and Comfortable
HEENT: Normocephalic, Anicteric and Moist Mucous Membranes
Cardiovascular: Regular Rhythm
Respiratory: Clear (Diminished breath sounds and prolonged expiratory time), Wheeze (Forced expiratory), Crackles (Few basilar), Non-Labored Respirations, Accessory Resp Muscle Use (n) and Stridor
GI: Soft, Distended and Other (Ascites)
Neurology: Awake, Alert, No Motor Deficits and Depressed (As well as anxious)
Skin: Warm, Good Color, Cyanosis (n), Jaundice (n) and Rash (n)
Labs/Micro/Reports
Lab Data
01/03/24 05:35
01/03/24 05:35
Microbiology
01/01/24 10:49 Peritoneal Fluid Body Fluid Culture - Preliminary
No Growth After 48 Hours
01/01/24 10:49 Peritoneal Fluid Gram Stain - Preliminary
01/01/24 12:56 Blood/Venous Blood Culture - Preliminary
Positive culture in progress
01/01/24 12:56 Blood/Venous Gram Stain - Preliminary
01/01/24 12:34 Blood/Venous Blood Culture - Preliminary
No Growth in 24 hours- Final report to follow
[2024-01-03] MEDS: NSS 1000 IV (10:25)
--- NOTE | 2024-01-03 11:32 | W.PN.PAL2 ---
Today's Communication
-
Met with patient' son and spouse at bedside. Patient had a rough night, did not sleep well because of mutiple loose bowel movements. however much better than night before. she was sleeping at time of my visit initially, woke up when PT arrived and
with PT was able to transfer out of bed into chair. She ate a little food last night, also first in a while - ice cream and soup. Overall labs and vital signs are stable/slight improvements seen - Cr down to 2.1, Oxygen down to 3L. Possible
infection being worked up, and asicitic fluid to be sent for malignancy. Family planning for rehab before home, but will depend on how she does with therapy.
Discussed code status with son and father, that if her condition were to deterioate, would recommend DNR. Family understands and may favor DNR, but they do not wish to override her decision at this time. Unable to have this discussion at the time
of my visit with Joceline as she was working with PT.
Assessment / Plan
-
Assessment/Plan:
Goals of care:
Patient is already active with [facility]
goals are palliative/treatment oriented. not ready yet for hospice, but family is aware that if does not improve then this would be next option
Full code
Constipation - resolved
Pain - avoid dilaudid. patient prefers tylenol, tolerated morphine as an outpatient, however can also cause confusion.
Dyspnea - improving, oxygen requirements down today
Reason for Admission
Illness Course/HPI
Joceline is a 73 y/o female who was diagnosed with pancreatic cancer in the last few months. Had initial appointment with Dr. christian at [facility] dec 21, PET scan for staging Dec 27 at [facility], and were to see Dr. Cadena oncology
surgeon at [facility] tomorrow along with set off blocker at [facility]. They started home palliative care with [facility] on tuesdayDec 29. Ascites managed as an ouptatient with oral lasix.
She was hospitalized becuase of worsening weakness, and poor oral intake.
In the ER was found to have VIRGILIO with cr of 2.6. Over the weekend developed respiratory symptoms, oxygen upto 6L by NC. also noted to have leukocytosis. Received paracentesis with 900 ml output. Last night severe agitation with paranoia. Family feels
related to dilaudid as had similar response to oxycodone when given as an outpatient, had tolerated morphine at home
Palliative Care Consulted to Review goals of care
Functional Status
At her baseline 2 weeks ago, she was independent of care needs, and driving short distances. had abdominal distension, but manage with diuretics.
Oral intake has decreased in past two weeks with increased edema
Goals of Care Discussion
Patient Goals
Advanced directives: has a living will, no copy in outpatient or outpatient records. Health care POA would be her spouse Edward followed by her sons Felix & Leonardo
At her appointment with her oncologist 2 weeks ago, the plan was either for chemo or surgery followed by chemo. Her condition has declined significantly in the past week.
At the very end of life, her goals are comfort oriented, however, patient is not prepared yet to make that transition.
As a family, their immediate goals are stabilize the breathing to allow her to get to the oncology visit next tuesday.
Family is supportive of her decisions, and knows that she may not tolerate much, however are not ready to 'throw in the towel' with hospice yet.
Code Status- Full Code
Objective Data
-
Objective Data:
Vital Signs
Temp Pulse Resp BP Pulse Ox
97.7 F 81 19 91/53 95
01/03/24 07:54 01/03/24 08:00 01/03/24 08:00 01/03/24 08:00 01/03/24 10:16
Laboratory Results
01/03/24 05:35
01/03/24 05:35
Total Protein 5.8 g/dl (6.3-8.2) L 01/01/24 03:31
Albumin 2.5 g/dl (3.5-5.0) L 01/01/24 03:31
Urine Color Yellow 12/31/23 16:38
Urine Clarity Clear (Clear) 12/31/23 16:38
Urine pH 5.0 (5.0-9.0) 12/31/23 16:38
Ur Specific Stratton 1.025 (<1.030) 12/31/23 16:38
Urine Ketones Trace (Negative) A 12/31/23 16:38
Urine Bilirubin 1+ (Negative) A 12/31/23 16:38
Palliative Performance Score Response
Palliative Performance Score Response: 40%
Physical Exam
-
General: Well Developed
HEENT: Moist Mucous Membranes
Respiratory: Non Labores Respirations
GI: Distended and Ascites
Neuro: Awake
Psych: Calm
[2024-01-03 12:50] LABS: Glucose - Point of Care 156 mg/dl (70-99)
--- NOTE | 2024-01-03 12:57 | W.PN.ID1 ---
Date of Service
Date of Service: January 03, 2024
Today's Communication
Continue antibiotics.
Assessment / Plan
Abdominal pain
Ascites with significant white count
- suspected SBP
Bacteremia
- GPC 1 of 4 bottles; suspect contaminant
Leukocytosis
Poor appetite
Pancreatic cancer
- recent dx. Had initial visit with Onc within past 2 weeks
- was for SurgOnc eval on 01/03/24
Hyponatremia
VIRGILIO (current est. CrCl ~ 19)
Acute hypoxemic respiratory failure
Hx Breast cancer
HTN
Dyslipidemia
DM
Bronchiolitis
Sinusitis
Hx colon polyps
GERD
Nephrolithiasis
Recommendations:
Continue with Zosyn for the present.
Monitor white count and temperature curve.
Await ascites fluid culture to further direct antimicrobial selection and potential de-escalation.
Continue with supportive measures, including volume repletion.
Patient for possible repeat paracentesis tomorrow.
����������������������������������������������������������
Chief Complaint
-: Leukocytosis, Bacteremia and Other (Suspected SBP)
Subjective / Review of Systems
Patient seen and examined. Reports ongoing abdominal discomfort.
Review of Systems: No Fever
Vital Signs / Physical Exam
Vital Signs
Vital Signs
Temp Pulse Resp BP Pulse Ox
97.6 F 80 16 91/53 100
01/03/24 11:39 01/03/24 11:43 01/03/24 11:43 01/03/24 08:00 01/03/24 11:44
Physical Exam
Constitutional: No Acute Distress, Comfortable and Non-toxic
Eyes: Sclera Anicteric
Cardiovascular: Regular Rate and S1/S2; Negative S3/S4
Pulmonary: Clear and Non Labored; Negative Wheezes
Gastrointestinal: Tender (Mild; diffusely), Distended, Normal Bowel Sounds, No Rebound and No Guarding
Extremities: Negative Edema, Cyanosis or Erythema
Skin: Warm and Dry
Neurological: Awake and Alert
Psychological: Calm
Objective Data
Lab Data
Lab Results
01/03/24 05:35
01/03/24 05:35
Estimated Creat Clear 20 ml/min 01/03/24 05:35
Lactic Acid 0.9 mmol/L (0.7-2.0) 01/01/24 10:07
Total Bilirubin 0.8 mg/dl (0.2-1.3) 01/01/24 03:31
AST 31 U/L (14-36) 01/01/24 03:31
ALT 18 U/L (0-35) 01/01/24 03:31
Alkaline Phosphatase 121 U/L (38-126) 01/01/24 03:31
Most recent labs reviewed.
Micro Results:
01/01/24 12:34 Blood Culture - Preliminary
Blood/Venous No Growth in 48 hours- Final report to follow
01/01/24 12:56 Blood Culture - Preliminary
Blood/Venous Staphylococcus species
Gram Stain - Preliminary
01/01/24 10:49 Body Fluid Culture - Preliminary
Peritoneal Fluid No Growth After 48 Hours
Gram Stain - Preliminary
Laboratory Tests
01/01/24
10:49
Fluid WBC 1343
Fluid Mononuclear Cell 34.1
Fl Polymorphonucl Cell 65.9
Imaging:
11/14/2023 Abdominal MRI: Pancreas appears overall atrophic. An ill-defined focus of heterogeneous T2 signal and hypoenhancement along the pancreatic body, which is similar to prior CT. Mild dilatation of the main duct within the distal body and
tail. Perihepatic and perisplenic free fluid which tracks into the paracolic gutters. Findings may represent focal pancreatitis, although findings are suspicious for malignancy. Prominent upper abdominal lymph nodes are noted, but similar to a
prior CT. Please see full dictation for additional detail.
[2024-01-03] MEDS: FERRLECIT 110 MG IV (14:53)
--- NOTE | 2024-01-03 14:53 | PTOTSP ---
Dysphagia Evaluation
Oral/pharyngeal stages of swallowing within functional limits for PO trials assessed.
Recommend:
1. Regular, Thin Liquids
2. Pick soft/moist foods given xerostomia and fatigue
3. Medications - as best tolerated (has been taking in puree per nurse)
4. Supervision - given periods of delirium per chart review
5. Upright to 90 degrees for PO, remain upright for 30 minutes after intake
6. Oral care 3x daily
7. Follow with dietitian given poor PO intake
No further dysphagia therapy warranted. Please reconsult as appropriate. If concerned for clinical signs of silent aspiration please reconsult via swallow study.
[2024-01-03 16:30] LABS: Glucose - Point of Care 166 mg/dl (70-99)
[2024-01-03] MEDS: LANTUS 0.1 UNITS SC (19:48)
[2024-01-03 19:57] LABS: Glucose - Point of Care 174 mg/dl (70-99)
[2024-01-04] VITALS (16 sets, daily range): BP systolic 91–143; BP diastolic 50–70
[2024-01-04] MEDS: HEPARIN 5000 UNITS SC ×3 (00:12→16:42)
[2024-01-04] MEDS: NSS 1000 IV ×2 (01:01→15:25)
[2024-01-04] MEDS: TYLENOL 650 MG PO ×2 (03:11→16:41)
[2024-01-04] MEDS: ZOSYN 50 IV ×3 (03:54→21:04)
[2024-01-04 04:53] LABS: Hematocrit 21.4 % (37.0-47.0); Hemoglobin 7.4 g/dL (12.0-16.0); Mean Corp Hgb Conc. 34.6 g/dL (33.0-37.0); Mean Corpuscular Hgb 27.2 pg (27.0-31.0); Mean Corpuscular Volume 78.7 fL (81.0-99.0); Mean Platelet Volume 8.8 fL (7.4-10.4); Platelet Count 460 10^3/uL (130-400); Red Blood Cell Count 2.72 10^6/uL (4.20-5.40); Red Cell Dist. Width 19.1 % (11.5-14.5); White Blood Cell Count 12.2 10^3/uL (4.8-10.8)
--- NOTE | 2024-01-04 07:05 | PTCARENOTE ---
No acute events overnight. No episodes of confusion/ agitation. Mata removed at 0630- due to void at 1230.
[2024-01-04] MEDS: DUONEB 3 ML INH ×4 (07:29→19:24)
--- NOTE | 2024-01-04 07:55 | CM ---
Addendum entered by Thelma Mario 01/04/24 09:02:
Patient seen at bedside, patient indicated that she remembered CM and physician. CM will continue to follow for discharge planning needs.
Original Note:
At request of patient daughter referrals sent to [facility] and [facility] ([facility] CM will continue to follow for discharge planning needs.
Plan; SNF.
[2024-01-04 07:59] LABS: Glucose - Point of Care 161 mg/dl (70-99)
[2024-01-04] MEDS: SODIUM BICARBONATE 650 MG PO (07:59)
--- NOTE | 2024-01-04 08:50 | W.PN.HOSP.TC ---
Today's Communication/Plan
-
consult IR for pararcentesis--studies ordered
repeat labs
PT/OT
D/C planning
wean O2
Assessment / Plan
Assessment / Plan
pt is a 73 year old female
Abdominal distention with ascites--likely from pancreatic cancer--paracentesis was obtained 12/31, no cytology sent, added on by me 01/02--consulted IR for retap --fluid studies ordered including cytology
recent diagnosis of pancreatic cancer -- supposed to meet with [facility] [place] for options, meeting pushed back--given her current state, I do not believe she will qualify for surgery OR chemo---family declined onc opinion with us opinion preferring to stay
with [facility]--Palliative care also involved
acute hypoxemic resp failure with hx of pulm nodules--does not wear at home--on 3L NC midflow--with pancreatic cancer and high D-dimer, PE was on differential, V/Q scan low probability, wean O2 as able--apprec pulm
VIRGILIO---with hyperkalemia, hyponatremia, and acute AG metabolic acidosis--apprec renal--IVF per them--creat improved to 2.1 (baseline 0.8)--labs drawn above IV line, repeating
anemia--presumed chronic disease with dilutional component from IVF--consideration for transfusion--HGB up to 9 now 7.6--labs drawn above IV line, repeating
bacteremia--positive blood culture--Staph species, possibly contaminant--apprec ID
delusion--pt believes she was kidnapped--angry at son/-- head CT negative for acute issues--seems to have subsided
type DM2--cont insulin as able--may need [employer]CH[employer] for assistance
Chronic HFpEF--follow volume status--appears dehydrated
Essential HTN: Holding hypertensive medications for now with acute kidney injury
HLD--lipitor as able
Depression: hold SSI with hyponatremia. Cont Elavil.
code status--FULL CODE
DVT proph-SC heparin
apprec PT/OT/speech--will likely need SNF
Anticipated Discharge: > 48 hours
Subjective/Interval History
-
Date of Service: January 04, 2024
pt sitting in the chair--labs drawn above an IV line--need repeat--pt wants to remain full code for now
Objective Data
-
Labs:
Laboratory Results
01/04/24 01/04/24 01/04/24
03:53 06:31 08:46
WBC 12.2 H Pending
Hgb 7.4 L Pending
Hct 21.4 L Pending
Plt Count 460 H Pending
Sodium Cancelled Pending Pending
Potassium Cancelled Pending Pending
Chloride Cancelled Pending Pending
Carbon Dioxide Cancelled Pending Pending
BUN Cancelled Pending Pending
Creatinine Cancelled Pending Pending
Glucose Cancelled Pending Pending
Calcium Cancelled Pending Pending
Total Bilirubin Pending
AST Pending
ALT Pending
Alkaline Phosphatase Pending
Vital Signs:
max temp for 24 hours
01/04/24
04:09
Temp 98.2 F
Vital Signs
Temp Pulse Resp BP Pulse Ox
98.2 F 81 16 91/66 95
01/04/24 04:09 01/04/24 07:31 01/04/24 07:31 01/04/24 06:00 01/04/24 07:31
I&O
01/03/24 01/04/24 01/05/24
06:59 06:59 06:59
Intake Total 160 / 160 940 / 940
Output Total 750 / 750 250 / 250
Balance -590 / -590 -250 / -250 940 / 940
Review of Systems
-
All other systems: Reviewed and negative
Abdomen/GI: Reports Abdominal Pain
Physical Exam
-
General: Appears Chronically Ill and Other (pale)
HEENT: Normocephalic, Atraumatic and Oxygen
Respiratory: Decreased Breath Sounds
Cardiac: Regular Rhythm and S1/S2; Negative Murmur
GI: Soft, Normal Bowel Sounds, Tender and Distended (ascites)
Musculoskeletal: No Clubbing, No Cyanosis and No Edema
Neuro: Awake and Alert
[2024-01-04 08:55] LABS: Blood Urea Nitrogen 82 mg/dl (7-17); Calcium 8.2 mg/dl (8.4-10.2); Carbon Dioxide 24 mmol/L (22-30); Chloride 102 mmol/L (98-107); Estimated Creatinine Clearance 25 ml/min; Glucose 163 mg/dl (70-99); Magnesium 1.6 mg/dl (1.6-2.3); Potassium 3.6 mmol/L (3.5-5.1); Sodium 138 mmol/L (135-145); eGFR 31.27
[2024-01-04] MEDS: NOVOLOG FLEXPEN-MODERATE RESISTANCE 1 UNITS SC ×3 (08:59→17:56)
--- NOTE | 2024-01-04 09:06 | W.PN.PUL.V3 ---
Today's Communication / Plan
-
Wean oxygen
Continue nebulizers
Antibiotics
Paracentesis
Assessment
-
Patient is a 73-year-old female with previous history of recently diagnosed pancreatic cancer, hypertension, HLD presenting to ER with progressive generalized weakness, abdominal distention, decreased p.o. intake. In ER she was found to be in
acute kidney injury with creatinine 2.6, potassium 5.8, sodium 127. She has not undergone treatment yet for her cancer as she has an appointment coming up at [place] [facility] on Tuesday. She is admitted for acute dehydration and renal failure. She has been
placed on supplemental O2 for hypoxemia requiring 6 L. Chest x-ray demonstrating small left pleural effusion.
Acute hypoxemic respiratory failure
Shortness of breath
Generalized weakness, abdominal distention, decreased p.o. intake
Ascites status post paracentesis
VIRGILIO
Acute dehydration
Hyperkalemia
Hyponatremia
Recent diagnosis of pancreatic cancer
D-dimer elevation-lower extremity ultrasound negative, VQ scan-low probability
Toxic metabolic encephalopathy/delusional
Conditions present prior to admission:
Multiple pulmonary nodules per CT chest, largest 7 mm, followed by Dr Herrera
Obstructive sleep apnea on AutoPap
Total AHI 12.3 sleep study June 2018
Chronic rhinitis/bronchiolitis/sinusitis
Improved FEV1 since 2019 on nebulized therapy
History of sinus surgery/followed by ENT ([facility]ani)
GERD, Fernandez's esophagitis per history
History of insulin-dependent diabetes
HLD
HTN
History of breast cancer
Mastectomy with TRAM FLAP reconstruction
Hysterectomy
Appendectomy
Pilonidal cyst excision
Ovarian cystectomy
Right ureteroscopy/laser litho and stent 07/2017
Sinus surgery 05/2019
Plan
Respiratory status remains somewhat tenuous
Continue supplemental oxygen-attempt to wean
Not on home oxygen-will need to assess prior to discharge
Aspiration precautions continues
Continue nebulizers-family believes she responded positively in the outpatient setting though she was not taking it for the last 2 to 4 weeks
Incentive spirometry encouraged
Mucus clearing devices
CPAP at night if able-has been refusing
Check cultures
Blood culture 1/2--01/01/2024-positive culture-staphylococcal species
Sputum culture if possible-not producing
Infectious disease following-correspondence reviewed
Empiric antibiotics-Zosyn initiated
D-dimer elevated-not surprising with pancreatic cancer-very hypercoagulable state
Lower extremity ultrasound 01/01/2024-negative
VQ scan 01/02/2024-very low probability
Recent history of pancreatic cancer diagnosis
Has not yet received treatment, to be followed at [facility]--appointment delayed by this hospitalization
Local oncological opinion declined by family
Monitor abdominal distention
Repeat paracentesis-cytology will be sent
Nephrology following for VIRGILIO and acute hyperkalemia-correspondence reviewed
DVT prophylaxis-on subcu heparin every 8 hours
Unfortunately prognosis quite poor-performance status declining and unclear whether she would ever tolerate treatment
Last saw Dr. Herrera 09/13/2023 and has appointment 10:45 AM 01/11/2024
Diagnostic Data
Chest X-Ray: 01/01/24- Small left pleural effusion, likely slightly decreased in size compared to the chest radiograph from 12/31/2023.
CT Scan: CHEST 11/02/23-There are numerous subcentimeter nodules, most pronounced within the bilateral lower lobes. The largest of which measures approximately 7 mm mm in the left lower lobe (series 201 image 35) and 7 mm in the right lower lobe
(series 201 image 35). There is atelectasis/scarring within the medial right lower lobe with associated minimal bronchiectasis, likely due to adjacent prominent osteophyte. Overall slightly increased in size from prior. Findings are most suspicious
for pulmonary metastases. There is new perisplenic and perihepatic free fluid in the upper abdomen.
Echo: 11/02/23- Normal biventricular size and systolic function without regional wall motion abnormality. No significant valvular disease. No prior study available for comparison.
PFT's: 08/2023-Testing essentially normal other than moderate gas exchange defect
Subjective Data
-
Date of Service:
Date of Service: January 04, 2024
Chief Complaint: Pulmonary Follow Up and Dyspnea Follow Up
Subjective:
Still agitated, not sleeping well, refusing CPAP, receiving nebulizers-unclear if helping, no complaints of chest pain, abdominal distention persists
Review of Systems
General: Other (Per HPI)
Objective Data
Data Reviewed
Vital Signs / I&O:
Vital Signs
Temp Pulse Resp BP Pulse Ox
98.2 F 81 16 91/66 95
01/04/24 09:04 01/04/24 07:31 01/04/24 07:31 01/04/24 06:00 01/04/24 07:31
Intake and Output
01/03/24 01/04/24 01/05/24
06:59 06:59 06:59
Intake Total 160 / 160 940 / 940
Output Total 750 / 750 250 / 250 100 / 100
Balance -590 / -590 -250 / -250 840 / 840
SaO2: 95
Nasal Cannula flow liters per minute: 2
Physical Exam
General: Respiratory Distress (n) and Comfortable
HEENT: Normocephalic, Anicteric and Moist Mucous Membranes
Cardiovascular: Regular Rhythm
Respiratory: Clear (Diminished breath sounds and prolonged expiratory time), Wheeze (Forced expiratory), Crackles (Few basilar), Non-Labored Respirations, Accessory Resp Muscle Use (n) and Stridor
GI: Soft, Distended and Other (Ascites)
Neurology: Awake, Alert, No Motor Deficits and Depressed (As well as anxious)
Skin: Warm, Good Color, Cyanosis (n), Jaundice (n) and Rash (n)
Labs/Micro/Reports
Microbiology
01/01/24 12:56 Blood/Venous Blood Culture - Preliminary
Staphylococcus species
01/01/24 12:56 Blood/Venous Gram Stain - Preliminary
01/01/24 12:34 Blood/Venous Blood Culture - Preliminary
No Growth in 48 hours- Final report to follow
01/01/24 10:49 Peritoneal Fluid Body Fluid Culture - Preliminary
No Growth After 48 Hours
01/01/24 10:49 Peritoneal Fluid Gram Stain - Preliminary
[2024-01-04 11:01] LABS: % Basophils 0.2 % (0-2); % Eosinophils 0.5 % (0-6); % Immature Granulocytes 1.3 % (0-0.5); % Lymphocytes 4.4 % (20.5-51.1); % Monocytes 5.2 % (1.7-9.3); % Neutrophils 88.4 % (42.2-75.2); Absolute Eosinophils 0.1 10^3/uL (0-0.7); Absolute Immature Granulocytes 0.2 10^3/uL (0-0.05); Absolute Lymphocytes 0.6 10^3/uL (1.2-3.4); Absolute Monocytes 0.7 10^3/uL (0.1-0.6); Absolute Neutrophils 12.5 10^3/uL (1.4-6.5); Hematocrit 25.9 % (37.0-47.0); Mean Corp Hgb Conc. 34.7 g/dL (33.0-37.0); Mean Corpuscular Hgb 28.5 pg (27.0-31.0); Mean Platelet Volume 8.8 fL (7.4-10.4); Nucleated Red Blood Cells % 0 %; Platelet Count 523 10^3/uL (130-400); Red Blood Cell Count 3.16 10^6/uL (4.20-5.40); Red Cell Dist. Width 19.6 % (11.5-14.5); White Blood Cell Count 14.2 10^3/uL (4.8-10.8)
[2024-01-04 11:15] LABS: Body Fluid Albumin 1.6 g/dl; Body Fluid Amylase < 30 U/L; Body Fluid Protein 3.8 g/dl
[2024-01-04 11:16] LABS: Body Fluid Mononuclear 25.5 %; Body Fluid Polymorphonuclear 74.5 %; Body Fluid WBC 1078 /CUMM
[2024-01-04 11:17] LABS: Body Fluid Second Tech EM
[2024-01-04 11:34] LABS: ALT (SGPT) 12 U/L (0-35); AST (SGOT) 22 U/L (14-36); Albumin 2.6 g/dl (3.5-5.0); Alkaline Phosphatase 126 U/L (38-126); Blood Urea Nitrogen 79 mg/dl (7-17); Calcium 8.6 mg/dl (8.4-10.2); Carbon Dioxide 25 mmol/L (22-30); Chloride 101 mmol/L (98-107); Estimated Creatinine Clearance 27 ml/min; Glucose 170 mg/dl (70-99); Magnesium 1.7 mg/dl (1.6-2.3); Potassium 3.6 mmol/L (3.5-5.1); Sodium 140 mmol/L (135-145); Total Bilirubin 0.5 mg/dl (0.2-1.3); Total Protein 6.1 g/dl (6.3-8.2); eGFR 33.63
[2024-01-04 12:05] LABS: Glucose - Point of Care 164 mg/dl (70-99)
--- NOTE | 2024-01-04 13:28 | W.PN.NEPH.PH ---
Today's Communication / Plan
-
encourage po intake and wean OVF slowly
Assessment/Plan
-
IMP:
VIRGILIO:
hyperkalemia
hyponatremia
Abdominal distention with ascites
Anemia
Leucocytosis
Thrombocytosis
Recently diagnosed pancreatic cancer (12/06/23)
Chronic HFpEF
DM2
h/o pulmonary nodules
Essential HTN
HLD
Depression
Plan:
cr improving slowly to 1.6, VT today
cont gentel IVF till po intake is adequate
s/p paracentesis again today of 750cc
encourage po intake
BP soft but stable
wean O2 as possible
d/w pt and
d/w nursing
-
-
Date of Service: January 04, 2024
CC / HPI / ROS
-
Chief Complaint:
VIRGILIO, high k, met acidosis
History of Present Illness:
VIRGILIO/Cr down to 1.6
Na up to 140
BUN down to 79
K normal
off harden this am
BP stable
po intake poor
Review of Systems:
no CP/SOB
abd pain better post paracentesis
Labs
-
Labs:
WBC 14.2 10^3/uL (4.8-10.8) H 01/04/24 10:43
RBC 3.16 10^6/uL (4.20-5.40) L 01/04/24 10:43
Hgb 9.0 g/dL (12.0-16.0) L D 01/04/24 10:43
Hct 25.9 % (37.0-47.0) L 01/04/24 10:43
Plt Count 523 10^3/uL (130-400) H 01/04/24 10:43
Sodium 140 mmol/L (135-145) 01/04/24 10:43
Potassium 3.6 mmol/L (3.5-5.1) 01/04/24 10:43
Chloride 101 mmol/L (98-107) 01/04/24 10:43
Carbon Dioxide 25 mmol/L (22-30) 01/04/24 10:43
BUN 79 mg/dl (7-17) H 01/04/24 10:43
Creatinine 1.6 mg/dL (0.6-1.0) H 01/04/24 10:43
eGFR 33.63 01/04/24 10:43
Glucose 170 mg/dl (70-99) H 01/04/24 10:43
Calcium 8.6 mg/dl (8.4-10.2) 01/04/24 10:43
Ouu-D-Mikozbqxrhv Pept 1900 pg/ml 12/31/23 14:41
Albumin 2.6 g/dl (3.5-5.0) L 01/04/24 10:43
Physical Exam
-
Vital Signs:
Vital Signs
Temp Pulse Resp BP Pulse Ox
98.2 F 84 14 114/54 99
01/04/24 09:04 01/04/24 11:27 01/04/24 11:27 01/04/24 10:15 01/04/24 11:27
Cardiovascular:: Regular rate and rhythm
Respiratory:: Bilateral: CTA (decreased)
Lung Excursion:: Normal
Abdomen:: Distended, Soft and Tender (gen-mild)
Extremity Edema:: None: Bilateral:
Harden Catheter: No
--- NOTE | 2024-01-04 15:17 | W.PN.ID1 ---
Date of Service
Date of Service: January 04, 2024
Today's Communication
Continue Zosyn.
Assessment / Plan
Abdominal pain
Ascites with significant white count
- suspected SBP
Bacteremia
- GPC 1 of 4 bottles with MSSA
Leukocytosis
- trending up
Poor appetite
Pancreatic cancer
- recent dx. Had initial visit with Onc within past 2 weeks
- was for SurgOnc eval on 01/03/24
Hyponatremia
VIRGILIO (current est. CrCl ~ 19)
Acute hypoxemic respiratory failure
Hx Breast cancer
HTN
Dyslipidemia
DM
Bronchiolitis
Sinusitis
Hx colon polyps
GERD
Nephrolithiasis
Recommendations:
Continue with Zosyn for ongoing coverage of suspected SBP. Will also treat recovered MSSA.
Will repeat blood cultures tomorrow to assure clearance.
Monitor white count and temperature curve.
Continue with supportive measures, including volume repletion.
����������������������������������������������������������
Chief Complaint
-: Leukocytosis, Bacteremia and Other (Suspected SBP)
Subjective / Review of Systems
Patient seen and examined. Appears brighter today.
Review of Systems: No Fever and No Chills
Vital Signs / Physical Exam
Vital Signs
Vital Signs
Temp Pulse Resp BP Pulse Ox
98.2 F 84 14 114/54 99
01/04/24 09:04 01/04/24 11:27 01/04/24 11:27 01/04/24 10:15 01/04/24 11:27
Physical Exam
Constitutional: No Acute Distress, Comfortable and Non-toxic
Eyes: Sclera Anicteric
Cardiovascular: Regular Rate and S1/S2; Negative S3/S4
Pulmonary: Clear and Non Labored; Negative Wheezes
Gastrointestinal: Tender (Mild; diffusely), Distended, Normal Bowel Sounds, No Rebound and No Guarding
Extremities: Negative Edema, Cyanosis or Erythema
Skin: Warm and Dry
Neurological: Awake and Alert
Psychological: Calm
Objective Data
Lab Data
Lab Results
01/04/24 10:43
01/04/24 10:43
Estimated Creat Clear 27 ml/min 01/04/24 10:43
Lactic Acid 0.9 mmol/L (0.7-2.0) 01/01/24 10:07
Total Bilirubin 0.5 mg/dl (0.2-1.3) 01/04/24 10:43
AST 22 U/L (14-36) 01/04/24 10:43
ALT 12 U/L (0-35) 01/04/24 10:43
Alkaline Phosphatase 126 U/L (38-126) 01/04/24 10:43
Most recent labs reviewed.
Micro Results:
01/01/24 12:34 Blood Culture - Preliminary
Blood/Venous No Growth in 72 hours- Final report to follow
01/01/24 10:49 Body Fluid Culture - Final
Peritoneal Fluid No Growth After 72 Hours
Gram Stain - Final
01/04/24 10:08 Body Fluid Culture - Pending
Peritoneal Fluid Gram Stain - Pending
01/01/24 12:56 Blood Culture - Preliminary
Blood/Venous S aureus-Methicillin Sensitive
Gram Stain - Preliminary
Laboratory Tests
01/01/24
10:49
Fluid WBC 1343
Fluid Mononuclear Cell 34.1
Fl Polymorphonucl Cell 65.9
Imaging:
11/14/2023 Abdominal MRI: Pancreas appears overall atrophic. An ill-defined focus of heterogeneous T2 signal and hypoenhancement along the pancreatic body, which is similar to prior CT. Mild dilatation of the main duct within the distal body and
tail. Perihepatic and perisplenic free fluid which tracks into the paracolic gutters. Findings may represent focal pancreatitis, although findings are suspicious for malignancy. Prominent upper abdominal lymph nodes are noted, but similar to a
prior CT. Please see full dictation for additional detail.
[2024-01-04] MEDS: FERRLECIT 110 MG IV (15:24)
[2024-01-04 17:24] LABS: Glucose - Point of Care 151 mg/dl (70-99)
--- NOTE | 2024-01-04 18:35 | PTCARENOTE ---
Patient transferred from IMU. Vital signs stable. Denies complaints. Family at bedside. Oriented to room and use of call reece. Patient verbalizes understanding.
[2024-01-04 21:24] LABS: Glucose - Point of Care 314 mg/dl (70-99)
[2024-01-04] MEDS: TYLENOL 1000 MG PO (22:39)
[2024-01-04] MEDS: LIDOCAINE 4% PATCH 1 PATCH TOPICAL (22:39)
[2024-01-04] MEDS: LANTUS 0.1 UNITS SC (22:40)
[2024-01-05] MEDS: HEPARIN 5000 UNITS SC ×3 (00:19→15:54)
[2024-01-05] MEDS: ANESTHETIC LOZENGE 1 LOZENGE PO (00:41)
[2024-01-05] MEDS: TESSALON PERLES 200 MG PO ×2 (01:33→20:27)
[2024-01-05 03:24] VITALS: BP 124/61
[2024-01-05] MEDS: ZOSYN 50 IV ×3 (04:26→20:27)
[2024-01-05] MEDS: NSS 1000 IV (06:29)
[2024-01-05 07:27] VITALS: BP 120/67
[2024-01-05] MEDS: DUONEB 3 ML INH ×3 (07:57→20:35)
[2024-01-05 08:18] LABS: Glucose - Point of Care 166 mg/dl (70-99)
[2024-01-05] MEDS: NOVOLOG FLEXPEN-MODERATE RESISTANCE 1 UNITS SC (08:21)
[2024-01-05] MEDS: SODIUM BICARBONATE 650 MG PO (08:22)
[2024-01-05 08:29] LABS: Hematocrit 25.3 % (37.0-47.0); Hemoglobin 8.3 g/dL (12.0-16.0); Mean Corp Hgb Conc. 32.8 g/dL (33.0-37.0); Mean Corpuscular Hgb 27.1 pg (27.0-31.0); Mean Corpuscular Volume 82.7 fL (81.0-99.0); Mean Platelet Volume 8.8 fL (7.4-10.4); Platelet Count 488 10^3/uL (130-400); Red Blood Cell Count 3.06 10^6/uL (4.20-5.40); Red Cell Dist. Width 19.9 % (11.5-14.5); White Blood Cell Count 11.9 10^3/uL (4.8-10.8)
[2024-01-05 09:12] LABS: Blood Urea Nitrogen 58 mg/dl (7-17); Calcium 8.4 mg/dl (8.4-10.2); Carbon Dioxide 25 mmol/L (22-30); Chloride 107 mmol/L (98-107); Estimated Creatinine Clearance 36 ml/min; Glucose 169 mg/dl (70-99); Magnesium 1.5 mg/dl (1.6-2.3); Potassium 3.7 mmol/L (3.5-5.1); Sodium 143 mmol/L (135-145)
--- NOTE | 2024-01-05 09:54 | W.PN.PUL.V3 ---
Today's Communication / Plan
-
Zosyn
Wean oxygen
Increase activity
Antitussives
Nebulizers continue
Assessment
-
Patient is a 73-year-old female with previous history of recently diagnosed pancreatic cancer, hypertension, HLD presenting to ER with progressive generalized weakness, abdominal distention, decreased p.o. intake. In ER she was found to be in
acute kidney injury with creatinine 2.6, potassium 5.8, sodium 127. She has not undergone treatment yet for her cancer as she has an appointment coming up at [place] on Tuesday. She is admitted for acute dehydration and renal failure. She has been
placed on supplemental O2 for hypoxemia requiring 6 L. Chest x-ray demonstrating small left pleural effusion.
Acute hypoxemic respiratory failure
Shortness of breath
Generalized weakness, abdominal distention, decreased p.o. intake
Ascites status post paracentesis
VIRGILIO
Acute dehydration
Hyperkalemia
Hyponatremia
Recent diagnosis of pancreatic cancer
D-dimer elevation-lower extremity ultrasound negative, VQ scan-low probability
Toxic metabolic encephalopathy/delusional
Conditions present prior to admission:
Multiple pulmonary nodules per CT chest, largest 7 mm, followed by Dr Herrera
Obstructive sleep apnea on AutoPap
Total AHI 12.3 sleep study June 2018
Chronic rhinitis/bronchiolitis/sinusitis
Improved FEV1 since 2019 on nebulized therapy
History of sinus surgery/followed by ENT (Armani)
GERD, Fernandez's esophagitis per history
History of insulin-dependent diabetes
HLD
HTN
History of breast cancer
Mastectomy with TRAM FLAP reconstruction
Hysterectomy
Appendectomy
Pilonidal cyst excision
Ovarian cystectomy
Right ureteroscopy/laser litho and stent 07/2017
Sinus surgery 05/2019
Plan
Respiratory status tenuous but overall improving
Continue supplemental oxygen-attempt to wean
Not on home oxygen-will need to assess prior to discharge
Aspiration precautions continues
Continue nebulizers-family believes she responded positively in the outpatient setting though she was not taking it for the last 2 to 4 weeks
Incentive spirometry encouraged
Mucus clearing devices
CPAP at night if able-has been refusing
Cultures reviewed
Blood culture 1/2--01/01/2024-positive culture-staphylococcal species
Sputum culture if possible-not producing
Infectious disease following-correspondence reviewed
Empiric antibiotics-Zosyn initiated
D-dimer elevated-not surprising with pancreatic cancer-very hypercoagulable state
Lower extremity ultrasound 01/01/2024-negative
VQ scan 01/02/2024-very low probability
Recent history of pancreatic cancer diagnosis
Has not yet received treatment, to be followed at [place]--appointment delayed by this hospitalization
Local oncological opinion declined by family
Monitor abdominal distention
Repeat paracentesis-cytology will be sent
Nephrology following for VIRGILIO and acute hyperkalemia-correspondence reviewed
DVT prophylaxis-on subcu heparin every 8 hours
Unfortunately prognosis quite poor-performance status declining and unclear whether she would ever tolerate treatment
Last saw Dr. Herrera 09/13/2023 and has appointment 10:45 AM 01/11/2024
Diagnostic Data
Chest X-Ray: 01/01/24- Small left pleural effusion, likely slightly decreased in size compared to the chest radiograph from 12/31/2023.
CT Scan: CHEST 11/02/23-There are numerous subcentimeter nodules, most pronounced within the bilateral lower lobes. The largest of which measures approximately 7 mm mm in the left lower lobe (series 201 image 35) and 7 mm in the right lower lobe
(series 201 image 35). There is atelectasis/scarring within the medial right lower lobe with associated minimal bronchiectasis, likely due to adjacent prominent osteophyte. Overall slightly increased in size from prior. Findings are most suspicious
for pulmonary metastases. There is new perisplenic and perihepatic free fluid in the upper abdomen.
Echo: 11/02/23- Normal biventricular size and systolic function without regional wall motion abnormality. No significant valvular disease. No prior study available for comparison.
PFT's: 08/2023-Testing essentially normal other than moderate gas exchange defect
Subjective Data
-
Date of Service:
Date of Service: January 05, 2024
Chief Complaint: Pulmonary Follow Up and Dyspnea Follow Up
Subjective:
Still complaining of a cough, Tessalon helped, out of bed, minimal mucus though 'yellow' when produces, no chest pain or abdominal pain
Review of Systems
General: Other (Per HPI)
Objective Data
Data Reviewed
Vital Signs / I&O:
Vital Signs
Temp Pulse Resp BP Pulse Ox
97.9 F 88 16 120/67 94
01/05/24 07:27 01/05/24 07:59 01/05/24 07:59 01/05/24 07:27 01/05/24 07:59
Intake and Output
01/04/24 01/05/24 01/06/24
06:59 06:59 06:59
Intake Total 940 / 940
Output Total 250 / 250 100 / 100
Balance -250 / -250 840 / 840
SaO2: 94
Nasal Cannula flow liters per minute: 2
Physical Exam
General: Respiratory Distress (n) and Comfortable
HEENT: Normocephalic, Anicteric and Moist Mucous Membranes
Cardiovascular: Regular Rhythm
Respiratory: Clear (Diminished breath sounds and prolonged expiratory time), Wheeze (Forced expiratory), Crackles (Few basilar), Non-Labored Respirations, Accessory Resp Muscle Use (n) and Stridor
GI: Soft, Distended and Other (Ascites)
Neurology: Awake, Alert, No Motor Deficits and Depressed (As well as anxious)
Skin: Warm, Good Color, Cyanosis (n), Jaundice (n) and Rash (n)
Labs/Micro/Reports
Lab Data
01/05/24 08:13
01/05/24 08:13
Microbiology
01/04/24 10:08 Peritoneal Fluid Gram Stain - Preliminary
01/01/24 12:34 Blood/Venous Blood Culture - Preliminary
No Growth in 72 hours- Final report to follow
01/01/24 10:49 Peritoneal Fluid Body Fluid Culture - Final
No Growth After 72 Hours
01/01/24 10:49 Peritoneal Fluid Gram Stain - Final
01/01/24 12:56 Blood/Venous Blood Culture - Preliminary
S aureus-Methicillin Sensitive
01/01/24 12:56 Blood/Venous Gram Stain - Preliminary
[2024-01-05 11:18] VITALS: BP 154/74
[2024-01-05] MEDS: TYLENOL 650 MG PO ×2 (11:33→20:27)
--- NOTE | 2024-01-05 11:58 | W.PN.PAL2 ---
Today's Communication
-
Patient seen at bedside with spouse Edward present, patient now in 409-1. Overall has had improvement in the past few days - breathing better down to 2L, Cr improving, tolerating sitting in chair and transferring, mentation and clarity improved. No
recent delerious episodes Not yet at baseline level of independence but encouraged her to work with PT. Pain control with tyelnol remains inadequate, however prior poor response/adverse response to dilaudid/oxycodone. Patient clarifys that morphine
she didn't actually try at home even though she has the prescription. She has tolerated tramadol in the past, could be trialed as an adjuct for pain control at low dose.
Goals are clear - once stable to start treatments with [facility]
Assessment / Plan
-
Assessment/Plan:
Goals of care:
Patient is already active with [facility] outpatient palliative care
goals are palliative
Full code
Constipation - resolved
Pain - avoid dilaudid. continue tylenol 650 prn, consider addition of tramadol 25mg q8 hours prn severe pain
Dyspnea - improving, oxygen requirements 2L was on room air for a while yesterday
Goals of Care Discussion
-
Patient's Information Preferences: Fully Involved/Able to Participate
Patient Goals
Treatment oriented
Pain & Symptom Assessment
[place] Symptom Scale 0=none, 10=worst
Pain: 4
-
Reports abdominal discomfort, not completely relieved with tylenol.
Objective Data
-
Objective Data:
Vital Signs
Temp Pulse Resp BP Pulse Ox
97.7 F 85 16 154/74 97
01/05/24 11:18 01/05/24 11:18 01/05/24 11:18 01/05/24 11:18 01/05/24 11:18
Laboratory Results
01/05/24 08:13
01/05/24 08:13
Total Protein 6.1 g/dl (6.3-8.2) L 01/04/24 10:43
Albumin 2.6 g/dl (3.5-5.0) L 01/04/24 10:43
Urine Color Yellow 12/31/23 16:38
Urine Clarity Clear (Clear) 12/31/23 16:38
Urine pH 5.0 (5.0-9.0) 12/31/23 16:38
Ur Specific [place] 1.025 (<1.030) 12/31/23 16:38
Urine Ketones Trace (Negative) A 12/31/23 16:38
Urine Bilirubin 1+ (Negative) A 12/31/23 16:38
Palliative Performance Score Response
Palliative Performance Score Response: 40%
Physical Exam
-
General: Well Developed and Well Nourished
GI: Tender and Distended
Neuro: Awake and Alert
Psych: Calm
[2024-01-05 12:54] LABS: Glucose - Point of Care 139 mg/dl (70-99)
[2024-01-05] MEDS: NOVOLOG FLEXPEN-MODERATE RESISTANCE SC ×2 (12:59→19:50)
--- NOTE | 2024-01-05 14:15 | W.PN.NEPH.PH ---
Today's Communication / Plan
-
follow labs and attempt to wean off IVF
Assessment/Plan
-
IMP:
VIRGILIO:
hyperkalemia
hyponatremia
Abdominal distention with ascites
Anemia
Leucocytosis
Thrombocytosis
Recently diagnosed pancreatic cancer (12/06/23)
Chronic HFpEF
DM2
h/o pulmonary nodules
Essential HTN
HLD
Depression
Plan:
cr improving slowly to 1.2, off foely UOP not recorded
cont gentle IVF till po intake is adequate
s/p paracentesis again 01/03 of 750cc
encourage po intake
BP stable off meds
wean O2 as possible
abx per ID for SBP
d/w pt and
-
-
Date of Service: January 05, 2024
CC / HPI / ROS
-
Chief Complaint:
VIRGILIO, high k, met acidosis
History of Present Illness:
VIRGILIO/Cr down to 1.2
Na up to 143
BUN down to 578
K normal
off harden 01/03
BP stable
po intake poor
Review of Systems:
no CP/SOB at rest
abd pain better post paracentesis
Labs
-
Labs:
WBC 11.9 10^3/uL (4.8-10.8) H 01/05/24 08:13
RBC 3.06 10^6/uL (4.20-5.40) L 01/05/24 08:13
Hgb 8.3 g/dL (12.0-16.0) L 01/05/24 08:13
Hct 25.3 % (37.0-47.0) L 01/05/24 08:13
Plt Count 488 10^3/uL (130-400) H 01/05/24 08:13
Sodium 143 mmol/L (135-145) 01/05/24 08:13
Potassium 3.7 mmol/L (3.5-5.1) 01/05/24 08:13
Chloride 107 mmol/L (98-107) 01/05/24 08:13
Carbon Dioxide 25 mmol/L (22-30) 01/05/24 08:13
BUN 58 mg/dl (7-17) H 01/05/24 08:13
Creatinine 1.2 mg/dL (0.6-1.0) H 01/05/24 08:13
eGFR 47.50 01/05/24 08:13
Glucose 169 mg/dl (70-99) H 01/05/24 08:13
Calcium 8.4 mg/dl (8.4-10.2) 01/05/24 08:13
Fmr-B-Csvyhpcbbnd Pept 1900 pg/ml 12/31/23 14:41
Albumin 2.6 g/dl (3.5-5.0) L 01/04/24 10:43
Physical Exam
-
Vital Signs:
Vital Signs
Temp Pulse Resp BP Pulse Ox
97.7 F 85 16 154/74 97
01/05/24 11:18 01/05/24 11:18 01/05/24 11:18 01/05/24 11:18 01/05/24 11:18
Cardiovascular:: Regular rate and rhythm
Respiratory:: Bilateral: CTA (decreased)
Lung Excursion:: Normal
Abdomen:: Distended, Soft and Tender (gen TTP)
Extremity Edema:: None: Bilateral:
Harden Catheter: No
--- NOTE | 2024-01-05 14:33 | W.PN.ID1 ---
Date of Service
Date of Service: January 05, 2024
Today's Communication
Continue abx.
Assessment / Plan
Abdominal pain
Ascites with significant white count
- suspected SBP
Bacteremia
- GPC 1 of 4 bottles with MSSA
Leukocytosis
- improved today
Poor appetite
Pancreatic cancer
- recent dx. Had initial visit with Onc within past 2 weeks
- was for SurgOnc eval on 01/03/24
Hyponatremia
VIRGILIO (current est. CrCl ~ 19)
Acute hypoxemic respiratory failure
Hx Breast cancer
HTN
Dyslipidemia
DM
Bronchiolitis
Sinusitis
Hx colon polyps
GERD
Nephrolithiasis
Recommendations:
Continue with Zosyn for ongoing coverage of suspected SBP (which will also treat recovered MSSA.)
Etiology of ongoing elevated peritoneal WBC unclear. Path suggestive of inflammation.
Repeat blood cultures today to assure clearance of MSSA. Will need 14 day course of IV abx as long as f/u blood cultures negative.
Monitor white count and temperature curve.
Continue with supportive measures, including volume repletion.
����������������������������������������������������������
Chief Complaint
-: Leukocytosis, Bacteremia and Other (Suspected SBP)
Subjective / Review of Systems
Review of Systems: No Fever
Vital Signs / Physical Exam
Vital Signs
Vital Signs
Temp Pulse Resp BP Pulse Ox
97.7 F 85 16 154/74 97
01/05/24 11:18 01/05/24 11:18 01/05/24 11:18 01/05/24 11:18 01/05/24 11:18
Physical Exam
Constitutional: Chronically Ill and Non-toxic
Eyes: Sclera Anicteric
Cardiovascular: Regular Rate and S1/S2; Negative S3/S4
Pulmonary: Clear and Non Labored; Negative Wheezes
Gastrointestinal: Tender (Mild; diffusely), Distended, Normal Bowel Sounds, No Rebound and No Guarding
Extremities: Negative Edema, Cyanosis or Erythema
Skin: Warm and Dry
Psychological: Calm
Objective Data
Lab Data
Lab Results
01/05/24 08:13
01/05/24 08:13
Estimated Creat Clear 36 ml/min 01/05/24 08:13
Lactic Acid 0.9 mmol/L (0.7-2.0) 01/01/24 10:07
Total Bilirubin 0.5 mg/dl (0.2-1.3) 01/04/24 10:43
AST 22 U/L (14-36) 01/04/24 10:43
ALT 12 U/L (0-35) 01/04/24 10:43
Alkaline Phosphatase 126 U/L (38-126) 01/04/24 10:43
Most recent labs reviewed.
Micro Results:
01/01/24 12:34 Blood Culture - Preliminary
Blood/Venous No Growth in 4 days- Final report to follow
01/04/24 10:08 Body Fluid Culture - Preliminary
Peritoneal Fluid No Growth After 18-24 Hours
Gram Stain - Preliminary
01/01/24 10:49 Body Fluid Culture - Final
Peritoneal Fluid No Growth After 72 Hours
Gram Stain - Final
01/01/24 12:56 Blood Culture - Preliminary
Blood/Venous S aureus-Methicillin Sensitive
Gram Stain - Preliminary
Laboratory Tests
01/01/24
10:49
Fluid WBC 1343
Fluid Mononuclear Cell 34.1
Fl Polymorphonucl Cell 65.9
Imaging:
11/14/2023 Abdominal MRI: Pancreas appears overall atrophic. An ill-defined focus of heterogeneous T2 signal and hypoenhancement along the pancreatic body, which is similar to prior CT. Mild dilatation of the main duct within the distal body and
tail. Perihepatic and perisplenic free fluid which tracks into the paracolic gutters. Findings may represent focal pancreatitis, although findings are suspicious for malignancy. Prominent upper abdominal lymph nodes are noted, but similar to a
prior CT. Please see full dictation for additional detail.
Care Review
Plan reviewed with: Physician (Hospitalist)
[2024-01-05 15:15] VITALS: BP 144/69
[2024-01-05] MEDS: DUONEB INH (15:39)
[2024-01-05] MEDS: FERRLECIT 110 MG IV (15:54)
--- NOTE | 2024-01-05 16:09 | W.PN.HOSP.TC ---
Today's Communication/Plan
-
SNF tomorrow
Assessment / Plan
Assessment / Plan
pt is a 73 year old female
Abdominal distention with ascites--likely from pancreatic cancer--paracentesis was obtained 12/31, no cytology sent, added on by me 01/02--consulted IR for retap 01/03 (750 mls removed) --fluid studies ordered including cytology--persistently high WBC
in ascitic fluid and SAG gradient not consistent with portal hypertension--likely related to malignancy.....
recent diagnosis of pancreatic cancer -- supposed to meet with [facility] for options, meeting pushed back--given her current state, I do not believe she will qualify for surgery OR chemo---family declined onc opinion with us preferring to stay with
[facility]--Palliative care also involved
MSSA bacteremia--positive blood culture, treating as if NOT contaminant---apprec ID--for 2 weeks of Ancef, will need midline....
acute hypoxemic resp failure with hx of pulm nodules--does not wear at home--still on 2L NC midflow--V/Q scan low probability, wean O2 as able--apprec pulm
VIRGILIO---with hyperkalemia, hyponatremia, and acute AG metabolic acidosis--apprec renal--IVF per them--creat improved to 1.2 (baseline 0.8)--IVF as per renal
anemia--presumed chronic disease with dilutional component from IVF--consideration for transfusion--HGB ~9
delusion--pt believes she was kidnapped--angry at son/-- head CT negative for acute issues--seems to have subsided
type DM2--cont insulin as able--may need DM MOLD MAKER PLASTER for assistance
Chronic HFpEF--follow volume status
Essential HTN--Holding hypertensive medications for now with acute kidney injury
HLD--lipitor as able
Depression-- hold SSI with hyponatremia. Cont Elavil.
code status--FULL CODE
DVT proph-SC heparin
poor oral intake, on supplements, not eating much
Anticipated Discharge: Within 24 hours
Subjective/Interval History
-
Date of Service: January 05, 2024
pt sitting in the chair--c/o abdominal pain--family will not let her get medicated because narcotics cause mental status change
Objective Data
-
Labs:
Laboratory Results
01/05/24
08:13
WBC 11.9 H
Hgb 8.3 L
Hct 25.3 L
Plt Count 488 H
Sodium 143
Potassium 3.7
Chloride 107
Carbon Dioxide 25
BUN 58 H
Creatinine 1.2 H
Glucose 169 H
Calcium 8.4
Vital Signs:
max temp for 24 hours
01/05/24
15:15
Temp 98.1 F
Vital Signs
Temp Pulse Resp BP Pulse Ox
98.1 F 85 14 144/69 98
01/05/24 15:15 01/05/24 15:15 01/05/24 15:15 01/05/24 15:15 01/05/24 15:15
I&O
01/04/24 01/05/24 01/06/24
06:59 06:59 06:59
Intake Total 940 / 940
Output Total 250 / 250 100 / 100
Balance -250 / -250 840 / 840
Review of Systems
-
All other systems: Reviewed and negative
Abdomen/GI: Reports Abdominal Pain
Physical Exam
-
General: Appears Chronically Ill and Other (weak)
HEENT: Normocephalic, Atraumatic and Oxygen
Respiratory: Decreased Breath Sounds
Cardiac: Regular Rhythm and S1/S2; Negative Murmur
GI: Soft, Normal Bowel Sounds, Tender and Distended
Musculoskeletal: No Clubbing, No Cyanosis and No Edema
Neuro: Awake and Alert
--- NOTE | 2024-01-05 17:00 | CM ---
Patient seen at bedside with physician and patient . Patient for possible transfer to [facility] tomorrow. Please call report to [phone]. Patient transfer forms tubed to unit for placement on chart. Patient family
will need to complete IMM, forms provided to patient . Patient family also asking for transfer to [facility]. Physician in process calling at family request to [facility]. CM will continue to follow for discharge planning needs.
Plan; transfer to [facility] pending confirmation from SNF vs transfer to [facility] at family request.
[2024-01-05 17:04] LABS: Glucose - Point of Care 172 mg/dl (70-99)
[2024-01-05 19:00] VITALS: BP 138/69
--- NOTE | 2024-01-05 19:19 | W.PN.UPDATE ---
Update Note
Progress Note Update
Family called by [facility] and they were told that [facility] would not accept the patient. Family then wished for transfer to [facility]. They did not give me an accepting physician, nevertheless, I called the number that they provided which
was the transfer center for [facility]. I am waiting for a hospitalist to return my call. I assured the family that I could not discharge the patient to an unsafe place as she truly needs skilled rehab but we do not have an accepting facility at this
time.
I explained that [facility] may choose not to accept her in transfer or that if they do accept in transfer it could be days before she gets a bed.
Meanwhile, patient's [id number] will call her [facility] oncologist to see if they can get an accepting physician down at [facility] proper tomorrow.
--- NOTE | 2024-01-05 19:51 | PTCARENOTE ---
Notified by patient's family at approximately 430pm that they would like patient transferred to [facility]. Family educated that in order to transfer to [facility] that we need the name of an accepting physician at [facility]. Patient's daughter in law states that
she called the [facility] and she was given a number for the MD to call and that [facility] would 'assign a doctor'. Contacted Dr. Rivera and gave her the information. She stated that she would call but the family needs to provide the name of a
doctor at [facility]. Dr. Rivera called the number provided and has not yet received a call back. Dr. Rivera and myself had a lengthy conversation with the daughter in law and son. Reviewed the transfer process once again. Explained Answered all
questions and explained that once an accepting provider is identified that there is a process to obtain a bed and that a bed might not be available immediately. Patient will not be going to [facility] tomorrow as previously planned due to them
not having the capability of supporting her medical needs - this was relayed to healthcare team by daughter in law. Daughter in law then states she will call the oncology team at [facility] in the morning to discuss accepting patient on their service.
Daughter in law about an hour and a half later gave a phone number to [facility] and stated that 'if a nurse calls they will accept the patient'. Called the number provided and it connected to [facility] hematology/oncology office. The office was closed and
only an emergency answering service available.
[2024-01-05 22:05] LABS: Glucose - Point of Care 218 mg/dl (70-99)
[2024-01-05] MEDS: LANTUS 0.1 UNITS SC (22:23)
[2024-01-05 23:00] VITALS: BP 137/60
[2024-01-06] VITALS (7 sets, daily range): BP systolic 133–151; BP diastolic 65–78; PULSE 94
[2024-01-06] MEDS: HEPARIN 5000 UNITS SC ×3 (00:41→15:36)
[2024-01-06] MEDS: ZOSYN 50 IV (03:05)
[2024-01-06] MEDS: TYLENOL 650 MG PO ×3 (03:11→20:21)
[2024-01-06] MEDS: TESSALON PERLES 200 MG PO (05:00)
[2024-01-06 07:22] LABS: Glucose - Point of Care 171 mg/dl (70-99)
[2024-01-06] MEDS: DUONEB 3 ML INH ×3 (07:33→19:33)
[2024-01-06 08:13] LABS: Hematocrit 23.5 % (37.0-47.0); Hemoglobin 7.7 g/dL (12.0-16.0); Mean Corp Hgb Conc. 32.8 g/dL (33.0-37.0); Mean Corpuscular Hgb 27.9 pg (27.0-31.0); Mean Corpuscular Volume 85.1 fL (81.0-99.0); Mean Platelet Volume 9.3 fL (7.4-10.4); Platelet Count 475 10^3/uL (130-400); Red Blood Cell Count 2.76 10^6/uL (4.20-5.40); Red Cell Dist. Width 20.6 % (11.5-14.5)
[2024-01-06] MEDS: NOVOLOG FLEXPEN-MODERATE RESISTANCE 1 UNITS SC ×2 (08:27→17:31)
[2024-01-06] MEDS: SODIUM BICARBONATE 650 MG PO (08:33)
[2024-01-06 09:29] LABS: Blood Urea Nitrogen 37 mg/dl (7-17); Calcium 8.3 mg/dl (8.4-10.2); Carbon Dioxide 26 mmol/L (22-30); Chloride 107 mmol/L (98-107); Estimated Creatinine Clearance 43 ml/min; Glucose 174 mg/dl (70-99); Magnesium 1.4 mg/dl (1.6-2.3); Potassium 3.3 mmol/L (3.5-5.1); Sodium 145 mmol/L (135-145); eGFR 59.12
--- NOTE | 2024-01-06 10:25 | W.PN.PUL.V3 ---
Today's Communication / Plan
-
.
Oxygen weaned to room air.
Aspiration precautions.
Dulera nebs will be decreased to 3 times daily.
Antibiotics per infectious disease.
Pulmonary signs off- Please call with questions.
Assessment
-
Patient is a 73-year-old female with previous history of recently diagnosed pancreatic cancer, hypertension, HLD presenting to ER with progressive generalized weakness, abdominal distention, decreased p.o. intake. In ER she was found to be in
acute kidney injury with creatinine 2.6, potassium 5.8, sodium 127. She has not undergone treatment yet for her cancer as she has an appointment coming up at [place] on Tuesday. She is admitted for acute dehydration and renal failure. She has been
placed on supplemental O2 for hypoxemia requiring 6 L. Chest x-ray demonstrating small left pleural effusion.
Acute hypoxemic respiratory failure
Shortness of breath
Generalized weakness, abdominal distention, decreased p.o. intake
Ascites status post paracentesis
VIRGILIO
Acute dehydration
Hyperkalemia
Hyponatremia
Recent diagnosis of pancreatic cancer
D-dimer elevation-lower extremity ultrasound negative, VQ scan-low probability
Toxic metabolic encephalopathy/delusional
Conditions present prior to admission:
Multiple pulmonary nodules per CT chest, largest 7 mm, followed by Dr Herrera
Obstructive sleep apnea on AutoPap
Total AHI 12.3 sleep study June 2018
Chronic rhinitis/bronchiolitis/sinusitis
Improved FEV1 since 2019 on nebulized therapy
History of sinus surgery/followed by ENT ([facility])
GERD, Fernandez's esophagitis per history
History of insulin-dependent diabetes
HLD
HTN
History of breast cancer
Mastectomy with TRAM FLAP reconstruction
Hysterectomy
Appendectomy
Pilonidal cyst excision
Ovarian cystectomy
Right ureteroscopy/laser litho and stent 07/2017
Sinus surgery 05/2019
Plan
Respiratory status appears to be improving
Continue supplemental oxygen-attempt to wean
Not on home oxygen-will need to assess prior to discharge
Aspiration precautions continues
Continue nebulizers-family believes she responded positively in the outpatient setting though she was not taking it for the last 2 to 4 weeks
Incentive spirometry encouraged
Mucus clearing devices
CPAP at night if able- patient refusing
Nebulizers 3 times daily
Cultures reviewed
Blood culture /--01/01/2024-positive culture-staphylococcal species
Sputum culture if possible-not producing
Infectious disease following-correspondence reviewed
Empiric antibiotics-Zosyn initiated-now changed to cefazolin
D-dimer elevated-not surprising with pancreatic cancer-very hypercoagulable state
Lower extremity ultrasound 01/01/2024-negative
VQ scan 01/02/2024-very low probability
Recent history of pancreatic cancer diagnosis
Has not yet received treatment, to be followed at [facility]--appointment delayed by this hospitalization
Local oncological opinion declined by family
Monitor abdominal distention.
Paracentesis 01/03/24--negative for malignant cells
Repeat paracentesis 01/04/24-cytology- positive malignant cells consistent with metastatic adenocarcinoma
Nephrology following for VIRGILIO and acute hyperkalemia-correspondence reviewed-repleat lytes
DVT prophylaxis-on subcu heparin every 8 hours
Unfortunately prognosis quite poor-performance status declining and unclear whether she would ever tolerate treatment
Updated at the bedside-he sees our practice for ROSA.
Respiratory status has stabilized. She is on room air.-Pulmonary. We'll sign off-. Please call with questions
Last saw Dr. Herrera 09/13/2023 and has appointment 10:45 AM 01/11/2024
Diagnostic Data
Chest X-Ray: 01/01/24- Small left pleural effusion, likely slightly decreased in size compared to the chest radiograph from 12/31/2023.
CT Scan: CHEST 11/02/23-There are numerous subcentimeter nodules, most pronounced within the bilateral lower lobes. The largest of which measures approximately 7 mm mm in the left lower lobe (series 201 image 35) and 7 mm in the right lower lobe
(series 201 image 35). There is atelectasis/scarring within the medial right lower lobe with associated minimal bronchiectasis, likely due to adjacent prominent osteophyte. Overall slightly increased in size from prior. Findings are most suspicious
for pulmonary metastases. There is new perisplenic and perihepatic free fluid in the upper abdomen.
Echo: 11/02/23- Normal biventricular size and systolic function without regional wall motion abnormality. No significant valvular disease. No prior study available for comparison.
PFT's: 08/2023-Testing essentially normal other than moderate gas exchange defect
Subjective Data
-
Date of Service:
Date of Service: January 06, 2024
Chief Complaint: Pulmonary Follow Up and Dyspnea Follow Up
Subjective:
Out of bed, less short of breath, minimal cough, no chest pain or abdominal pain
Review of Systems
General: Other ( per HPI)
Objective Data
Data Reviewed
Vital Signs / I&O:
Vital Signs
Temp Pulse Resp BP Pulse Ox
97.7 F 87 16 133/69 96
01/06/24 07:15 01/06/24 07:36 01/06/24 07:36 01/06/24 07:15 01/06/24 07:36
Intake and Output
01/05/24 01/06/24 01/07/24
06:59 06:59 06:59
Intake Total 940 / 940 530 / 530
Output Total 100 / 100
Balance 840 / 840 530 / 530
SaO2: 96
Nasal Cannula flow liters per minute: 2
Physical Exam
General: Respiratory Distress (n) and Comfortable
HEENT: Normocephalic, Anicteric and Moist Mucous Membranes
Cardiovascular: Regular Rhythm
Respiratory: Clear (Diminished breath sounds and prolonged expiratory time), Wheeze (Forced expiratory), Crackles (Few basilar), Non-Labored Respirations, Accessory Resp Muscle Use (n) and Stridor
GI: Soft, Distended and Other (Ascites)
Neurology: Awake, Alert, No Motor Deficits and Depressed (As well as anxious)
Skin: Warm, Good Color, Cyanosis (n), Jaundice (n) and Rash (n)
Labs/Micro/Reports
Lab Data
01/06/24 07:09
01/06/24 07:09
Microbiology
01/04/24 10:08 Peritoneal Fluid Body Fluid Culture - Preliminary
No Growth After 48 Hours
01/04/24 10:08 Peritoneal Fluid Gram Stain - Preliminary
01/01/24 12:34 Blood/Venous Blood Culture - Preliminary
No Growth in 4 days- Final report to follow
01/01/24 10:49 Peritoneal Fluid Body Fluid Culture - Final
No Growth After 72 Hours
01/01/24 10:49 Peritoneal Fluid Gram Stain - Final
01/01/24 12:56 Blood/Venous Blood Culture - Preliminary
S aureus-Methicillin Sensitive
01/01/24 12:56 Blood/Venous Gram Stain - Preliminary
[2024-01-06] MEDS: DUONEB INH (11:22)
--- NOTE | 2024-01-06 11:44 | W.PN.PAL2 ---
Today's Communication
-
Palliative Care Follow Up. Chart reviewed, discussed with attending physician as well.
Yesterday [facility] refused to accept patient for SNF due to need for antibioitics and paracentesis. Patient has really only required one paracentesis in past week for therapeutic purposes, second paracentesis was more for diagnostic
purposes/cytology. Family also exploring option of transfer to [facility], awaiting call back from [facility] if they have an accepting physician. Discussed with spouse that if [facility] does not accept, then we need to explore other SNF options, clarifying
to him that (1) tube placement is not an option at this time due to infection risk as she wishes to start chemo treatments in the future, and (2) most SNF facilities do not do paracentesis on site, but can transfer to outpatient IR if needed as long
as did not need it multiple times a week, and (3) most SNF facilities for rehab are capable of IV antibiotics. If [facility] is not able to do this, then we can explore other options. Goals remain treatment oriented.
Patients labs - cr improving. Breathing - on room air at time of my visit. Is planning to get a shower today and hopeful of trying to walk today with therapists. Ate more breakfast today. Pain somewhat controlled with tyelnol, does not want strong
meds.
Assessment / Plan
-
Assessment/Plan:
Goals of care:
Patient is already active with [facility]
Awaiting acceptance from [facility].
encouraged family to explore alternative snf rehab options with case management.
goals are palliative
Full code
Reason for Admission
Illness Course/HPI
Joceline is a 73 y/o female who was diagnosed with pancreatic cancer in the last few months. Had initial appointment with Dr. christian at [facility] oncology dec 21, PET scan for staging Dec 27 at [facility], and were to see Dr. Cadena oncology
surgeon at [facility] tomorrow along with meteorology instructor at [facility]. They started home palliative care with [facility] on tuesdayDec 29. Ascites managed as an ouptatient with oral lasix.
She was hospitalized becuase of worsening weakness, and poor oral intake.
In the ER was found to have VIRGILIO with cr of 2.6. Over the weekend developed respiratory symptoms, oxygen upto 6L by NC. also noted to have leukocytosis. Received paracentesis with 900 ml output. Last night severe agitation with paranoia. Family feels
related to dilaudid as had similar response to oxycodone when given as an outpatient, had tolerated morphine at home
Palliative Care Consulted to Review goals of care
Functional Status
At her baseline 2 weeks ago, she was independent of care needs, and driving short distances. had abdominal distension, but manage with diuretics.
Oral intake has decreased in past two weeks with increased edema
Goals of Care Discussion
Patient Goals
Treatment oriented
Pain & Symptom Assessment
-
Tired, mild-mod abdominal pain. breathing better. weakness
Objective Data
-
Objective Data:
Vital Signs
Temp Pulse Resp BP Pulse Ox
98 F 101 16 133/69 95
01/06/24 11:05 01/06/24 11:05 01/06/24 11:05 01/06/24 11:05 01/06/24 11:05
Laboratory Results
01/06/24 07:09
01/06/24 07:09
Total Protein 6.1 g/dl (6.3-8.2) L 01/04/24 10:43
Albumin 2.6 g/dl (3.5-5.0) L 01/04/24 10:43
Urine Color Yellow 12/31/23 16:38
Urine Clarity Clear (Clear) 12/31/23 16:38
Urine pH 5.0 (5.0-9.0) 12/31/23 16:38
Ur Specific [place] 1.025 (<1.030) 12/31/23 16:38
Urine Ketones Trace (Negative) A 12/31/23 16:38
Urine Bilirubin 1+ (Negative) A 12/31/23 16:38
Palliative Performance Scale
Palliative Performance Scale:
PPS Level Ambulation Activity & Evidence of Disease Self Care Intake Conscious Level
100% Full Normal Activity & Work; Full Intake Full
No Evidence of Disease
90% Full Normal Activity & Work; Full Normal Full
Some Evidence of Disease
80% Full Normal Activity with Effort Full Normal or Full
Some Evidence of Disease Reduced
70% Reduced Unable Normal Job/Work Full Normal or Full
Significant Disease Reduced
60% Reduced Unable Hobby/Housework Occasional Normal or Full or Confusion
Significant Disease Assistance Reduced
50% Mainly Sit/Lie Unable to do Any Work Considerable Normal or Full or Confusion
Extensive Disease Assistance Req'd Reduced
40% Mainly in Bed Unable to do Most Activity Mainly Assistance Normal or Full or Drowsy;
Extensive Disease Reduced +/- Confusion
30% Totally Bed Unable to do Any Activity Total Care Normal or Full or Drowsy;
Bound Extensive Disease Reduced +/- Confusion
20% Totally Bed Bound Unable to do Any Activity Total Care Minimal to Full or Drowsy;
Extensive Disease Sips +/- Confusion
10% Totally Bed Bound Unable to do Any Activity Total Care Mouth Care Drowsy or Coma;
Extensive Disease Only +/- Confusion
0%
PPS Score Level:
Palliative Performance Score Response
Palliative Performance Score Response: 40%
Physical Exam
-
General: Well Developed and Well Nourished
HEENT: Moist Mucous Membranes
GI: Distended
Neuro: Awake and Alert
Psych: Calm
[2024-01-06 12:32] LABS: Glucose - Point of Care 208 mg/dl (70-99)
--- NOTE | 2024-01-06 12:38 | W.PN.NEPH.PH ---
Today's Communication / Plan
-
replete lytes
Assessment/Plan
-
IMP:
VIRGILIO:
hyperkalemia
hyponatremia
Abdominal distention with ascites
Anemia
Leucocytosis
Thrombocytosis
Recently diagnosed pancreatic cancer (12/06/23)
Chronic HFpEF
DM2
h/o pulmonary nodules
Essential HTN
HLD
Depression
Plan:
continue IVF
replete lytes
possible HUP tx
follow BMP
-
-
Date of Service: January 06, 2024
CC / HPI / ROS
-
Chief Complaint:
VIRGILIO, high k, met acidosis
History of Present Illness:
VIRGILIO/Cr down to 1.0
Na up to 145
BUN down to 37
K low 3.3
mag low 1.4
calcium low 8.3
hgb down to 7.7
off harden 01/03
BP stable
po intake poor
Review of Systems:
no CP/SOB at rest
poor po
Labs
-
Labs:
WBC 11.0 10^3/uL (4.8-10.8) H 01/06/24 07:09
RBC 2.76 10^6/uL (4.20-5.40) L 01/06/24 07:09
Hgb 7.7 g/dL (12.0-16.0) L 01/06/24 07:09
Hct 23.5 % (37.0-47.0) L 01/06/24 07:09
Plt Count 475 10^3/uL (130-400) H 01/06/24 07:09
Sodium 145 mmol/L (135-145) 01/06/24 07:09
Potassium 3.3 mmol/L (3.5-5.1) L 01/06/24 07:09
Chloride 107 mmol/L (98-107) 01/06/24 07:09
Carbon Dioxide 26 mmol/L (22-30) 01/06/24 07:09
BUN 37 mg/dl (7-17) H 01/06/24 07:09
Creatinine 1.0 mg/dL (0.6-1.0) 01/06/24 07:09
eGFR 59.12 01/06/24 07:09
Glucose 174 mg/dl (70-99) H 01/06/24 07:09
Calcium 8.3 mg/dl (8.4-10.2) L 01/06/24 07:09
Snd-C-Mnsvdqnzqpa Pept 1900 pg/ml 12/31/23 14:41
Albumin 2.6 g/dl (3.5-5.0) L 01/04/24 10:43
Physical Exam
-
Vital Signs:
Vital Signs
Temp Pulse Resp BP Pulse Ox
98 F 101 16 133/69 95
01/06/24 11:05 01/06/24 11:05 01/06/24 11:05 01/06/24 11:05 01/06/24 11:05
Cardiovascular:: Regular rate and rhythm
Respiratory:: Bilateral: Coarse
Lung Excursion:: Normal
Abdomen:: Nontender and Soft
Bowel Sounds:: Normal
Extremity Edema:: None: Bilateral:
[2024-01-06] MEDS: NOVOLOG FLEXPEN-MODERATE RESISTANCE 3 UNITS SC (12:40)
[2024-01-06] MEDS: FERRLECIT 110 MG IV (12:42)
--- NOTE | 2024-01-06 12:50 | W.PN.ID1 ---
Date of Service
Date of Service: January 06, 2024
Today's Communication
Change Zosyn to cefazolin.
TTE.
Assessment / Plan
Abdominal pain
Ascites with significant white count
- cx neg to date
- repeat paracentesis 01/03 cytology positive malignant cells
MSSA Bacteremia, uncomplicated
- MSSA 1 of 4 bottles
Leukocytosis
- improving
Poor appetite
Pancreatic cancer
- recent dx. Had initial visit with Onc within past 2 weeks
- was for SurgOnc eval on 01/03/24
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
Hyponatremia
VIRGILIO (current est. CrCl ~ 19)
Acute hypoxemic respiratory failure
Hx Breast cancer
HTN
Dyslipidemia
DM
Bronchiolitis
Sinusitis
Hx colon polyps
GERD
Nephrolithiasis
Recommendations:
Significant white count in ascites can occur in setting of peritoneal carcinomatous.
SBP ruled out with neg cx.
Change Zosyn to cefazolin 2g IV q8h for MSSA bacteremia.
Follow repeat blood cultures to assure clearance of MSSA.
TTE
Will need 14 day course of IV abx as long as f/u blood cultures and TTE negative.
Monitor white count and temperature curve.
Continue with supportive measures, including volume repletion.
����������������������������������������������������������
Chief Complaint
-: Leukocytosis, Bacteremia and Other (Suspected SBP)
Subjective / Review of Systems
Complaining of abdominal discomfort.
Appetite poor.
Vital Signs / Physical Exam
Vital Signs
Vital Signs
Temp Pulse Resp BP Pulse Ox
98 F 101 16 133/69 95
01/06/24 11:05 01/06/24 11:05 01/06/24 11:05 01/06/24 11:05 01/06/24 11:05
Physical Exam
Constitutional: No Acute Distress
Eyes: Sclera Anicteric
Cardiovascular: Regular Rate and S1/S2
Pulmonary: Clear
Gastrointestinal: Soft, Tender (mild diffuse), Distended and Normal Bowel Sounds
Extremities: Negative Edema
Neurological: AO x 3
Objective Data
Lab Data
Lab Results
01/06/24 07:09
01/06/24 07:09
Estimated Creat Clear 43 ml/min 01/06/24 07:09
Lactic Acid 0.9 mmol/L (0.7-2.0) 01/01/24 10:07
Total Bilirubin 0.5 mg/dl (0.2-1.3) 01/04/24 10:43
AST 22 U/L (14-36) 01/04/24 10:43
ALT 12 U/L (0-35) 01/04/24 10:43
Alkaline Phosphatase 126 U/L (38-126) 01/04/24 10:43
Most recent labs reviewed.
Micro Results:
01/01/24 12:34 Blood Culture - Final
Blood/Venous No Growth - Final Report
01/04/24 10:08 Body Fluid Culture - Preliminary
Peritoneal Fluid No Growth After 48 Hours
Gram Stain - Preliminary
01/05/24 17:01 Blood Culture - Pending
Blood/Venous
01/01/24 10:49 Body Fluid Culture - Final
Peritoneal Fluid No Growth After 72 Hours
Gram Stain - Final
01/01/24 12:56 Blood Culture - Preliminary
Blood/Venous S aureus-Methicillin Sensitive
Gram Stain - Preliminary
Laboratory Tests
01/01/24
10:49
Fluid WBC 1343
Fluid Mononuclear Cell 34.1
Fl Polymorphonucl Cell 65.9
Imaging:
11/14/2023 Abdominal MRI: Pancreas appears overall atrophic. An ill-defined focus of heterogeneous T2 signal and hypoenhancement along the pancreatic body, which is similar to prior CT. Mild dilatation of the main duct within the distal body and
tail. Perihepatic and perisplenic free fluid which tracks into the paracolic gutters. Findings may represent focal pancreatitis, although findings are suspicious for malignancy. Prominent upper abdominal lymph nodes are noted, but similar to a
prior CT. Please see full dictation for additional detail.
Care Review
Plan reviewed with: Physician (Dr. Rivera)
[2024-01-06] MEDS: KCL 270 MEQ IV (14:17)
[2024-01-06] MEDS: MAGNESIUM SULFATE 50 IV (14:20)
--- NOTE | 2024-01-06 15:14 | W.PN.HOSP.TC ---
Today's Communication/Plan
-
waiting to hear from [place] to talk with a physician--I have not reached anyone to discuss her case
I also put a call in to Dr. Giles's answering service at 12:09 today--as of now, no return call
Assessment / Plan
Assessment / Plan
pt is a 73 year old female
Abdominal distention with ascites--likely from pancreatic cancer--paracentesis was obtained 12/31, cytology added on by me 01/02 (negative) cytology from 01/03 positive--s/p IR for retap 01/03 (750 mls removed)--persistently high WBC in ascitic fluid
and SAAG gradient not consistent with portal hypertension--likely related to malignancy.....
recent diagnosis of pancreatic cancer now metastatic with positive ascitic fluid -- supposed to meet with [place] for options, meeting pushed back to 01/09--given her current state, I do not believe she will qualify for surgery OR chemo--apprec
Palliative care--family only wants transfer to [place] now, no SNF
MSSA bacteremia--positive blood culture, treating as if NOT contaminant---apprec ID--for 2 weeks of Ancef, will need midline....
acute hypoxemic resp failure with hx of pulm nodules--does not wear at home--still on 2L NC midflow, wean to off--V/Q scan low probability--apprec pulm
VIRGILIO---with hyperkalemia, hyponatremia, and acute AG metabolic acidosis--apprec renal--IVF per them--creat improved to 1.0 (baseline 0.8)--IVF as per renal
anemia--presumed chronic disease with dilutional component from IVF--consideration for transfusion--HGB ~9
delusion--pt believes she was kidnapped--angry at son/-- head CT negative for acute issues--seems to have subsided
type DM2--cont insulin as able--may need DM [employer] for assistance
Chronic HFpEF--follow volume status
Essential HTN--Holding hypertensive medications for now with acute kidney injury
HLD--lipitor as able
Depression-- hold SSI with hyponatremia. Cont Elavil.
code status--FULL CODE
DVT proph-SC heparin
poor oral intake, on supplements, not eating much
Anticipated Discharge: > 48 hours
Subjective/Interval History
-
Date of Service: January 06, 2024
pt was getting ready to work with therapy
Objective Data
-
Labs:
Laboratory Results
01/06/24
07:09
WBC 11.0 H
Hgb 7.7 L
Hct 23.5 L
Plt Count 475 H
Sodium 145
Potassium 3.3 L
Chloride 107
Carbon Dioxide 26
BUN 37 H
Creatinine 1.0
Glucose 174 H
Calcium 8.3 L
Vital Signs:
max temp for 24 hours
01/06/24
11:05
Temp 98 F
Vital Signs
Temp Pulse Resp BP Pulse Ox
98 F 94 16 133/69 95
01/06/24 11:05 01/06/24 13:55 01/06/24 13:55 01/06/24 11:05 01/06/24 13:55
I&O
01/05/24 01/06/24 01/07/24
06:59 06:59 06:59
Intake Total 940 / 940 530 / 530
Output Total 100 / 100
Balance 840 / 840 530 / 530
Review of Systems
-
All other systems: Reviewed and negative
Abdomen/GI: Reports Abdominal Pain
Physical Exam
-
General: Appears Chronically Ill
HEENT: Normocephalic, Atraumatic and Oxygen
Respiratory: Clear to Auscultation; Negative Wheezes or Rhonchi
Cardiac: Regular Rhythm and S1/S2; Negative Murmur
GI: Soft, Nondistended, Normal Bowel Sounds and Tender
Musculoskeletal: No Clubbing, No Cyanosis and No Edema
Neuro: Awake and Alert
[2024-01-06] MEDS: ANCEF 10 IV ×2 (15:36→22:38)
[2024-01-06 16:52] LABS: Glucose - Point of Care 196 mg/dl (70-99)
--- NOTE | 2024-01-06 17:45 | W.PN.UPDATE ---
Update Note
Progress Note Update
Spoke at length with family member Valencia who now requested a transfer to [facility]. Spoke with hospitalist Dr. Abbott and reviewed the entire case including the fact that Dr. Giles who is on-call for oncology at [facility] is her
primary oncologist. Unfortunately, since there is nothing acute at this time they are declining the transfer to [facility] and will not accept. I did ask Dr. Abbott to pass my cell phone number to Dr. Giles so that I may be able to
discuss the case with him.
I also explained to her that I left a message with Dr. Giles's answering service for him to page me at noon today and have yet to receive a call back.
She stated that she would pass my cell phone number on to him.
--- NOTE | 2024-01-06 17:46 | CM ---
CM following for discharge plans. Family insistent on discharge to [place]. [facility] declined admission, stating they cannot accomodate pt's need.
Case discussed with Dr. Oro who was advised by [facility] that they are 'working on it'.
CM overheard family talking about transfer to [place] if [facility] doesn't come through.
Will continue to follow.
[2024-01-06 21:11] LABS: Glucose - Point of Care 268 mg/dl (70-99)
[2024-01-06] MEDS: LANTUS 0.1 UNITS SC (22:38)
[2024-01-07] MEDS: TESSALON PERLES 200 MG PO ×2 (00:26→23:42)
[2024-01-07] MEDS: TYLENOL 650 MG PO ×5 (00:26→21:17)
[2024-01-07] MEDS: HEPARIN 5000 UNITS SC ×4 (00:27→23:42)
[2024-01-07] MEDS: ANCEF 10 IV ×3 (05:14→21:10)
[2024-01-07] MEDS: DUONEB INH ×2 (07:28→14:38)
[2024-01-07 07:30] VITALS: BP 157/90
[2024-01-07 07:44] LABS: Glucose - Point of Care 154 mg/dl (70-99)
[2024-01-07 09:37] LABS: Glucose - Point of Care 140 mg/dl (70-99)
[2024-01-07] MEDS: NOVOLOG FLEXPEN-MODERATE RESISTANCE SC (09:37)
[2024-01-07] MEDS: SODIUM BICARBONATE 650 MG PO (09:38)
[2024-01-07] MEDS: FLUSH (NSS) 1 FLUSH IV (09:39)
[2024-01-07 10:18] LABS: Hematocrit 28.4 % (37.0-47.0); Hemoglobin 9.4 g/dL (12.0-16.0); Mean Corp Hgb Conc. 33.1 g/dL (33.0-37.0); Mean Corpuscular Hgb 28.5 pg (27.0-31.0); Mean Corpuscular Volume 86.1 fL (81.0-99.0); Platelet Count 462 10^3/uL (130-400); Red Cell Dist. Width 20.8 % (11.5-14.5); White Blood Cell Count 10.9 10^3/uL (4.8-10.8)
--- NOTE | 2024-01-07 10:38 | W.PN.UPDATE ---
Update Note
Progress Note Update
just received a call from [facility]spoke with onc Dr. Kasia Hummel -- reviewed case and she declined to accept the patient
tried to call Valencia to inform her --no answer
[2024-01-07 11:27] VITALS: BP 137/76
--- NOTE | 2024-01-07 11:42 | W.PN.NEPH.PH ---
Today's Communication / Plan
-
s/o
Assessment/Plan
-
IMP:
VIRGILIO:
hyperkalemia
hyponatremia
Abdominal distention with ascites
Anemia
Leucocytosis
Thrombocytosis
Recently diagnosed pancreatic cancer (12/06/23)
Chronic HFpEF
DM2
h/o pulmonary nodules
Essential HTN
HLD
Depression
Plan:
cap IVF
replete lytes prn
follow BMP
will sign off, please call with questions
-
-
Date of Service: January 07, 2024
CC / HPI / ROS
-
Chief Complaint:
VIRGILIO, high k, met acidosis
History of Present Illness:
VIRGILIO/Cr down to 1.0 yesterday
no labs today
off harden 01/03
BP stable
po intake slightly better
Review of Systems:
no CP/SOB at rest
Labs
-
Labs:
WBC 10.9 10^3/uL (4.8-10.8) H 01/07/24 08:53
RBC 3.30 10^6/uL (4.20-5.40) L 01/07/24 08:53
Hgb 9.4 g/dL (12.0-16.0) L D 01/07/24 08:53
Hct 28.4 % (37.0-47.0) L 01/07/24 08:53
Plt Count 462 10^3/uL (130-400) H 01/07/24 08:53
eGFR Cancelled 01/07/24 08:53
Vgr-X-Swrlhystgkt Pept 1900 pg/ml 12/31/23 14:41
Albumin 2.6 g/dl (3.5-5.0) L 01/04/24 10:43
Physical Exam
-
Vital Signs:
Vital Signs
Temp Pulse Resp BP Pulse Ox
98.0 F 99 18 137/6 97
01/07/24 11:27 01/07/24 11:27 01/07/24 11:27 01/07/24 11:27 01/07/24 11:27
Cardiovascular:: Regular rate and rhythm
Respiratory:: Bilateral: Coarse
Lung Excursion:: Normal
Abdomen:: Distended, Nontender and Soft
Bowel Sounds:: Normal
Extremity Edema:: None: Bilateral:
[2024-01-07 11:58] LABS: Blood Urea Nitrogen 26 mg/dl (7-17); Calcium 8.6 mg/dl (8.4-10.2); Carbon Dioxide 27 mmol/L (22-30); Chloride 107 mmol/L (98-107); Estimated Creatinine Clearance 53 ml/min; Glucose 155 mg/dl (70-99); Magnesium 1.6 mg/dl (1.6-2.3); Phosphorus 2.5 mg/dl (2.5-4.5); Potassium 3.6 mmol/L (3.5-5.1); Sodium 145 mmol/L (135-145); eGFR > 60.00
[2024-01-07 12:01] LABS: Glucose - Point of Care 156 mg/dl (70-99)
--- NOTE | 2024-01-07 12:08 | W.PN.HOSP.TC ---
Today's Communication/Plan
-
d/c planning
Assessment / Plan
Assessment / Plan
pt is a 73 year old female
Spoke with Dr. Abbott from [facility], Dr. Estephanie gandhi from [place]--both declined to accept in transfer--spoke at length with Dr. Giles by phone.... Reviewed entire case with him. He did tell me not to pursue any further hospital to
hospital transfers as likely no one would except her since she is close to discharge and she does not qualify for acute chemotherapy as an inpatient. He recommends pursuing long term facilities for her to get stronger and to complete her 14
days of IV cefazolin for MSSA bacteremia. He would then follow-up with her as an outpatient in his office to discuss treatment options from there.
Abdominal distention with ascites--likely from pancreatic cancer--paracentesis was obtained 12/31, cytology added on by me 01/02 (negative) cytology from 01/03 positive, had tap for 750mls--has had no further taps since 01/03---persistently high WBC in
ascitic fluid and SAAG gradient not consistent with portal hypertension--likely related to malignancy.....no signs of SBP, cultures negative
recent diagnosis of pancreatic cancer now metastatic with positive ascitic fluid -- supposed to meet with [place] for options, meeting pushed back to 01/09--given her current state, I do not believe she will qualify for surgery OR chemo--apprec
Palliative care--
MSSA bacteremia--positive blood culture, treating as if NOT contaminant---apprec ID--for 2 weeks of Ancef, will need midline....
acute hypoxemic resp failure with hx of pulm nodules--does not wear at home--still on 2L NC midflow, wean to off--V/Q scan low probability--apprec pulm
VIRGILIO---with hyperkalemia, hyponatremia, and acute AG metabolic acidosis--apprec renal--IVF per them--creat improved to 1.0 (baseline 0.8)--IVF as per renal
anemia--presumed chronic disease with dilutional component from IVF--consideration for transfusion--HGB ~9
delusion--pt believes she was kidnapped--angry at son/-- head CT negative for acute issues--seems to have subsided
type DM2--cont insulin as able--may need DM [employer] for assistance
Chronic HFpEF--follow volume status
Essential HTN--Holding hypertensive medications for now with acute kidney injury
HLD--lipitor as able
Depression-- hold SSI with hyponatremia. Cont Elavil.
code status--FULL CODE
DVT proph-SC heparin
Anticipated Discharge: > 48 hours
Subjective/Interval History
-
Date of Service: January 07, 2024
pt sitting in the chair
Objective Data
-
Labs:
Laboratory Results
01/07/24 01/07/24
08:53 11:20
WBC 10.9 H
Hgb 9.4 L D
Hct 28.4 L
Plt Count 462 H
Sodium Cancelled 145
Potassium Cancelled 3.6
Chloride Cancelled 107
Carbon Dioxide Cancelled 27
BUN Cancelled 26 H
Creatinine Cancelled 0.8
Glucose Cancelled 155 H
Calcium Cancelled 8.6
Vital Signs:
max temp for 24 hours
01/06/24
23:00
Temp 98.2 F
Vital Signs
Temp Pulse Resp BP Pulse Ox
98.0 F 99 18 137/6 97
01/07/24 11:27 01/07/24 11:27 01/07/24 11:27 01/07/24 11:27 01/07/24 11:27
I&O
01/06/24 01/07/24 01/08/24
06:59 06:59 06:59
Intake Total 530 / 530 1390 / 1390
Balance 530 / 530 1390 / 1390
Review of Systems
-
All other systems: Reviewed and negative
Abdomen/GI: Reports Abdominal Pain
Physical Exam
-
General: Appears Chronically Ill
HEENT: Normocephalic and Atraumatic
Respiratory: Clear to Auscultation; Negative Wheezes or Rhonchi
Cardiac: Regular Rhythm and S1/S2; Negative Murmur
GI: Soft, Normal Bowel Sounds, Tender and Distended
Musculoskeletal: No Clubbing, No Cyanosis and No Edema
Neuro: Awake
--- NOTE | 2024-01-07 12:30 | CM ---
Patient with Dx Abdominal distention with ascites--likely from pancreatic cancer, who is s/p paracentesis. Room air. Receiving IV cefazolin. PT/OT recommend skilled rehab.
Spoke with Dr Rivera; patient will not be transferring to another acute care facility. She will be medically ready for d/c to SNF on 01/08. Her need for repeat paracentesis will be about every 2 weeks- she was tapped on 12/31 and had to be
retapped 01/03 for diagnostic tests, not due to fluid reaccumulation. Her IV Abx will need to be continued to approx 01/18. She would like CM to contact [facility] Monday 01/08 and if they do not accept then line up alternate SNF.
Plan follow up with [facility] 01/08 for acceptance.
[2024-01-07] MEDS: NOVOLOG FLEXPEN-MODERATE RESISTANCE 1 UNITS SC (12:39)
[2024-01-07 15:25] VITALS: BP 150/82
--- NOTE | 2024-01-07 16:38 | W.PN.ID1 ---
Date of Service
Date of Service: January 07, 2024
Today's Communication
Continue cefazolin.
See below.
Assessment / Plan
Abdominal pain
Ascites with significant white count
- cx neg to date
- repeat paracentesis 01/03 cytology positive malignant cells
MSSA Bacteremia, uncomplicated
- MSSA 1 of 2 sets
Leukocytosis
- improving
Poor appetite
Pancreatic cancer
- recent dx. Had initial visit with Onc within past 2 weeks
- was for SurgOnc eval on 01/03/24
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
Hyponatremia
VIRGILIO (current est. CrCl ~ 19)
Acute hypoxemic respiratory failure
Hx Breast cancer
HTN
Dyslipidemia
DM
Bronchiolitis
Sinusitis
Hx colon polyps
GERD
Nephrolithiasis
Recommendations:
Significant white count in ascites can occur in setting of peritoneal carcinomatous.
SBP ruled out with neg cx.
Continue cefazolin 2g IV q8h for MSSA bacteremia.
TTE negative gross vege
Repeat blood cultures neg to date
Recommend 14 day course of IV abx (d6) through 01/15/24.
Place midline at time of discharge.
Extensive discussion with pt's son, [id number], and . Son is concerned that pt is receiving IV abx which impedes her getting treatment ELI for pancreatic cancer.
He is questioning about her having a true infection and that the bacteremia was a contaminant. I explained Staph aureus is a serious pathogen and should not be taken lightly.
Staph aureus bacteremia is never considered a contaminant. I explained the difference between Staph epidermidis which is skin salma and Staph aureus. MSSA blood stream infection must be treated with a
course of antibiotic therapy based on evidence-based guidelines. . A negative repeat blood cx does not signify that the infection has cleared; she needs to complete 14d course of antibiotic.
Immunosuppression in setting of an infection can have dire consequences; understandably her Oncologist plans to delay starting chemo.
����������������������������������������������������������
Chief Complaint
-: Leukocytosis and Bacteremia
Subjective / Review of Systems
No acute complaint.
Vital Signs / Physical Exam
Vital Signs
Vital Signs
Temp Pulse Resp BP Pulse Ox
98.3 F 97 18 150/82 93
01/07/24 15:25 01/07/24 15:25 01/07/24 15:25 01/07/24 15:25 01/07/24 15:25
Physical Exam
Gastrointestinal: Soft, Tender (diffuse, mild) and Distended (mild)
Extremities: Negative Edema
Objective Data
Lab Data
Lab Results
01/07/24 08:53
01/07/24 11:20
Estimated Creat Clear 53 ml/min 01/07/24 11:20
Lactic Acid 0.9 mmol/L (0.7-2.0) 01/01/24 10:07
Total Bilirubin 0.5 mg/dl (0.2-1.3) 01/04/24 10:43
AST 22 U/L (14-36) 01/04/24 10:43
ALT 12 U/L (0-35) 01/04/24 10:43
Alkaline Phosphatase 126 U/L (38-126) 01/04/24 10:43
Most recent labs reviewed.
Micro Results:
01/04/24 10:08 Body Fluid Culture - Final
Peritoneal Fluid No Growth After 72 Hours
Gram Stain - Final
01/05/24 17:01 Blood Culture - Preliminary
Blood/Venous No Growth in 24 hours- Final report to follow
01/01/24 12:34 Blood Culture - Final
Blood/Venous No Growth - Final Report
01/01/24 10:49 Body Fluid Culture - Final
Peritoneal Fluid No Growth After 72 Hours
Gram Stain - Final
01/01/24 12:56 Blood Culture - Preliminary
Blood/Venous S aureus-Methicillin Sensitive
Gram Stain - Preliminary
Laboratory Tests
01/01/24
10:49
Fluid WBC 1343
Fluid Mononuclear Cell 34.1
Fl Polymorphonucl Cell 65.9
Imaging:
11/14/2023 Abdominal MRI: Pancreas appears overall atrophic. An ill-defined focus of heterogeneous T2 signal and hypoenhancement along the pancreatic body, which is similar to prior CT. Mild dilatation of the main duct within the distal body and
tail. Perihepatic and perisplenic free fluid which tracks into the paracolic gutters. Findings may represent focal pancreatitis, although findings are suspicious for malignancy. Prominent upper abdominal lymph nodes are noted, but similar to a
prior CT. Please see full dictation for additional detail.
[2024-01-07 16:45] LABS: Glucose - Point of Care 202 mg/dl (70-99)
[2024-01-07] MEDS: NOVOLOG FLEXPEN-MODERATE RESISTANCE 3 UNITS SC (17:19)
[2024-01-07] MEDS: DUONEB 3 ML INH (20:43)
[2024-01-07 21:30] LABS: Glucose - Point of Care 175 mg/dl (70-99)
[2024-01-07] MEDS: LANTUS 0.1 UNITS SC (22:18)
[2024-01-07 23:16] VITALS: BP 134/74
[2024-01-07] MEDS: BENADRYL 25 MG PO (23:42)
[2024-01-08] MEDS: TYLENOL 650 MG PO ×3 (05:26→21:12)
[2024-01-08] MEDS: ANCEF 10 IV ×3 (05:27→21:20)
[2024-01-08 07:06] LABS: Glucose - Point of Care 139 mg/dl (70-99)
[2024-01-08 07:14] VITALS: BP 146/80
[2024-01-08] MEDS: NOVOLOG FLEXPEN-MODERATE RESISTANCE SC ×2 (08:11→11:58)
[2024-01-08] MEDS: SODIUM BICARBONATE 650 MG PO (08:14)
[2024-01-08] MEDS: HEPARIN 5000 UNITS SC ×3 (08:14→23:53)
[2024-01-08] MEDS: DUONEB INH ×2 (08:16→13:01)
--- NOTE | 2024-01-08 11:35 | CM ---
Addendum entered by Zaria Singh 01/08/24 13:01:
CM spoke with patient's and provided SNF options within a 25 mile radius of [facility] to consider for referral; recommended that he go visit the facilities or search the medicare.gov website for information.
Original Note:
CM spoke with daughter at length via phone. Daughter wants mother discharged to a SNF that can accept her tomorrow; and would be able to provide transport to her [facility] Appointment on Tuesday.
Daughter reported that she spoke to Admissions @ [facility] on Tuesday; she reported that she knows that they requested a financial application and that bed availability is pending.
Daughter asked for additional referrals sent to SNFs near [place] with 5 star Medicare rating. Informed her that mother was accepted @ [facility]; she was not interested.
SNF Referrals sent to [facility] and [facility]
[2024-01-08 11:52] LABS: Glucose - Point of Care 149 mg/dl (70-99)
[2024-01-08] MEDS: FLUSH (NSS) 1 FLUSH IV (13:58)
--- NOTE | 2024-01-08 15:52 | W.PN.HOSP.TC ---
Today's Communication/Plan
-
US to eval for ascites
d/c planning
Assessment / Plan
Assessment / Plan
pt is a 73 year old female
Spoke with Dr. Abbott from [facility], Dr. Estephanie gandhi from [facility]--both declined to accept in transfer--spoke at length with Dr. Giles by phone on Sat 01/06.... Reviewed entire case with him. He did tell me not to pursue any further
hospital to hospital transfers as likely no one would except her since she is close to discharge and she does not qualify for acute chemotherapy as an inpatient. He recommends pursuing halfway facilities for her to get stronger and to
complete her 14 days of IV cefazolin for MSSA bacteremia. He would then follow-up with her as an outpatient in his office to discuss treatment options from there.
Abdominal distention with ascites--likely from pancreatic cancer--paracentesis was obtained 12/31, cytology added on by me 01/02 (negative) cytology from 01/03 positive, had tap for 750mls--has had no further taps since 01/03---persistently high WBC in
ascitic fluid and SAAG gradient not consistent with portal hypertension--likely related to malignancy.....no signs of SBP, cultures negative
recent diagnosis of pancreatic cancer now metastatic with positive ascitic fluid -- supposed to meet with [place] for options, meeting pushed back to 01/09--given her current state, I do not believe she will qualify for surgery OR chemo--apprec
Palliative care--will check limited US to eval amount of ascites....
MSSA bacteremia-- NOT contaminant---apprec ID--for 2 weeks of Ancef, will need midline....
acute hypoxemic resp failure with hx of pulm nodules--does not wear at home---V/Q scan low probability--apprec pulm--off O2
VIRGILIO--resolved--with hyperkalemia, hyponatremia, and acute AG metabolic acidosis--apprec renal--IVF per them--creat improved to 1.0 (baseline 0.8)
anemia--presumed chronic disease with dilutional component from IVF--consideration for transfusion--HGB ~9
delusion--pt believes she was kidnapped--angry at son/-- head CT negative for acute issues--seems to have subsided
type DM2--cont insulin as able--may need DM [employer] for assistance
Chronic HFpEF--follow volume status
Essential HTN--Holding hypertensive medications for now with acute kidney injury
HLD--lipitor as able
Depression-- hold SSI with hyponatremia. Cont Elavil.
code status--FULL CODE
DVT proph-SC heparin
Anticipated Discharge: 24 - 48 hours
Subjective/Interval History
-
Date of Service: January 08, 2024
pt visiting with family
Objective Data
-
Vital Signs:
max temp for 24 hours
01/08/24
07:14
Temp 98.3 F
Vital Signs
Temp Pulse Resp BP Pulse Ox
98.3 F 92 20 146/80 96
01/08/24 07:14 01/08/24 07:14 01/08/24 07:14 01/08/24 07:14 01/08/24 09:20
I&O
01/07/24 01/08/24 01/09/24
06:59 06:59 06:59
Intake Total 1390 / 1390 840 / 840
Balance 1390 / 1390 840 / 840
Review of Systems
-
All other systems: Reviewed and negative
Abdomen/GI: Reports Abdominal Pain
Physical Exam
-
General: Appears Chronically Ill
HEENT: Normocephalic and Atraumatic; Negative Oxygen
Respiratory: Clear to Auscultation; Negative Wheezes or Rhonchi
Cardiac: Regular Rhythm and S1/S2; Negative Murmur
GI: Soft, Normal Bowel Sounds, Tender and Distended
Musculoskeletal: No Clubbing, No Cyanosis and No Edema
Neuro: Awake and Alert
Psych: Calm
[2024-01-08 15:59] VITALS: BP 139/74
[2024-01-08 16:39] LABS: Glucose - Point of Care 195 mg/dl (70-99)
[2024-01-08] MEDS: NOVOLOG FLEXPEN-MODERATE RESISTANCE 1 UNITS SC (17:52)
[2024-01-08] MEDS: DUONEB 3 ML INH (20:04)
[2024-01-08 21:20] LABS: Glucose - Point of Care 213 mg/dl (70-99)
[2024-01-08] MEDS: LANTUS 0.1 UNITS SC (21:21)
[2024-01-08 23:00] VITALS: BP 144/74
[2024-01-08] MEDS: TESSALON PERLES 200 MG PO (23:53)
[2024-01-08] MEDS: BENADRYL 25 MG PO (23:53)
[2024-01-09] MEDS: ANCEF 10 IV ×2 (05:25→15:04)
[2024-01-09] MEDS: DUONEB 3 ML INH (07:42)
[2024-01-09] MEDS: HEPARIN 5000 UNITS SC (08:11)
[2024-01-09] MEDS: SODIUM BICARBONATE 650 MG PO (08:11)
[2024-01-09 08:12] LABS: Glucose - Point of Care 137 mg/dl (70-99)
[2024-01-09] MEDS: NOVOLOG FLEXPEN-MODERATE RESISTANCE SC ×2 (08:13→12:18)
[2024-01-09 08:17] VITALS: BP 163/85
[2024-01-09] MEDS: TYLENOL 650 MG PO ×2 (08:18→15:02)
--- NOTE | 2024-01-09 08:56 | W.PN.HOSP.TC ---
Addendum entered and electronically signed by Karina Lopes MD 01/09/24 16:24:
total DC time 40 min
Original Note:
Today's Communication/Plan
-
see A/P
Assessment / Plan
Assessment / Plan
A/P:
# Abdominal distention 2/2 ascites, likely from metastatic pancreatic cancer
s/p paracentesis 12/31 (900 cc fluid removed) and 01/03 (750 cc fluid removed)
cytology from 01/03 positive for malignant cells
no signs of SBP, cultures negative
# recent diagnosis of pancreatic cancer, now metastatic ascitic fluid
Pt was supposed to meet with [facility] for options, meeting pushed back to 01/09
Limited Abd US ordered 01/08 to eval reaccumulation of ascitic fluid
# MSSA bacteremia
ID recc 2 weeks of Ancef with midline
# acute hypoxemic resp failure with hx of pulm nodules
weaned off O2
V/Q scan low probability
apprec pulm
# VIRGILIO, resolved
# Initial hyperkalemia then hypokalemia, resolved
# Initial hyponatremia, resolved
# Initial AG metabolic acidosis, resolved
s/p IVF
creat improved to 1.0 (baseline 0.8)
apprec renal
# anemia, presumed anemia of chronic disease with dilutional component from IVF
# delusion, seems to have subsided
pt believes she was kidnapped, angry at son/
head CT negative for acute issues
# type DM2
cont insulin as able
may need DM [employer]DO[employer]URE GUIDES for assistance
# Chronic HFpEF
follow volume status
# Essential HTN
resume [employer] nadolol
Cont to hold [employer] Losartan, Norvasc
# HLD
Lipitor as able
# Depression
Resume [employer] fluoxetine
would cont to hold amitriptyline (pt experienced delirium during hospital stay)
code status: FULL CODE
DVT proph- change to Lovenox SQ
Dr Rivera spoke with Dr. Abbott from [facility], Dr. Estephanie gandhi from [place]--both declined to accept transfer
Dr Rivera spoke at length with Dr. Giles by phone on Sat 01/06.... Reviewed entire case with him. He informed to not pursue any further hospital to hospital transfers as likely no one would accept pt since she is close to discharge and she does
not qualify for acute chemotherapy as an inpatient. He recommends pursuing senior care facilities for her to get stronger and to complete her 14 days of IV cefazolin for MSSA bacteremia. He would then follow-up with her as an outpatient in his
office to discuss treatment options from there.
updated on the phone
total time spent 50 min
Anticipated Discharge: 24 - 48 hours
Subjective/Interval History
-
Date of Service: January 09, 2024
Objective Data
-
Vital Signs:
Vital Signs
Temp Pulse Resp BP Pulse Ox
36.8 C 108 18 163/85 95
01/09/24 08:17 01/09/24 08:17 01/09/24 08:17 01/09/24 08:17 01/09/24 08:17
I&O
01/08/24 01/09/24 01/10/24
06:59 06:59 06:59
Intake Total 840 / 840 840 / 840
Balance 840 / 840 840 / 840
Review of Systems
-
All other systems: Reviewed and negative
Physical Exam
-
General: Well Developed, Comfortable, Conversant and Appears Chronically Ill
HEENT: Normocephalic and Atraumatic; Negative Oxygen
Respiratory: Clear to Auscultation and Non Labored Respirations; Negative Wheezes, Rhonchi or Accessory Resp Muscle Use
Cardiac: Regular Rhythm and S1/S2; Negative Murmur
GI: Soft, Nontender, Normal Bowel Sounds and Distended (mild)
Musculoskeletal: No Clubbing, No Cyanosis and No Edema
Neuro: Awake and Alert
Psych: Calm and Intact Judgement/Insight
Data Reviewed
-
Diagnostic Radiology: Report Reviewed by me
Labs: Labs Reviewed by me
[2024-01-09] MEDS: CORGARD 40 MG PO (11:39)
[2024-01-09] MEDS: PROZAC 20 MG PO (11:39)
[2024-01-09 12:13] LABS: Glucose - Point of Care 146 mg/dl (70-99)
--- NOTE | 2024-01-09 12:20 | W.PN.PAL2 ---
Today's Communication
-
family deciding on SNF
Assessment / Plan
-
Assessment/Plan:
73 year old F with pancreatic cancer with malignanct ascites.
Much improved from last week, now stable for discharge. Awaiting SNF placement.
Follows with [facility] onc and [facility]
Still reports constant pain, takes tylenol and does not want anything stronger due to side effects.
Reason for Admission
Illness Course/HPI
Joceline is a 73 y/o female who was diagnosed with pancreatic cancer in the last few months. Had initial appointment with Dr. christian at [facility] dec 21, PET scan for staging Dec 27 at [facility], and were to see Dr. Ornelas oncology
surgeon at [facility]. They started home palliative care with [facility] on tuesdayDec 29. Ascites managed as an outpatient with oral lasix.
She was hospitalized becuase of worsening weakness, and poor oral intake.
In the ER was found to have VIRGILIO with cr of 2.6, developed respiratory symptoms, oxygen upto 6L by NC. also noted to have leukocytosis. Received paracentesis with 900 ml output. Course c/b severe agitation with paranoia. Family feels related to
dilaudid as had similar response to oxycodone when given as an outpatient, had tolerated morphine at home
Palliative Care Consulted to Review goals of care
Pain & Symptom Assessment
Patient Symptoms
Patient Symptoms: Pain
[place] Symptom Scale 0=none, 10=worst
Pain: 5
Objective Data
-
Objective Data:
Vital Signs
Temp Pulse Resp BP Pulse Ox
98.3 F 108 18 163/85 95
01/09/24 08:17 01/09/24 08:17 01/09/24 08:17 01/09/24 08:17 01/09/24 11:13
Laboratory Results
01/07/24 08:53
01/07/24 11:20
Total Protein 6.1 g/dl (6.3-8.2) L 01/04/24 10:43
Albumin 2.6 g/dl (3.5-5.0) L 01/04/24 10:43
Urine Color Yellow 12/31/23 16:38
Urine Clarity Clear (Clear) 12/31/23 16:38
Urine pH 5.0 (5.0-9.0) 12/31/23 16:38
Ur Specific [place] 1.025 (<1.030) 12/31/23 16:38
Urine Ketones Trace (Negative) A 12/31/23 16:38
Urine Bilirubin 1+ (Negative) A 12/31/23 16:38
Palliative Performance Scale
Palliative Performance Scale:
PPS Level Ambulation Activity & Evidence of Disease Self Care Intake Conscious Level
100% Full Normal Activity & Work; Full Intake Full
No Evidence of Disease
90% Full Normal Activity & Work; Full Normal Full
Some Evidence of Disease
80% Full Normal Activity with Effort Full Normal or Full
Some Evidence of Disease Reduced
70% Reduced Unable Normal Job/Work Full Normal or Full
Significant Disease Reduced
60% Reduced Unable Hobby/Housework Occasional Normal or Full or Confusion
Significant Disease Assistance Reduced
50% Mainly Sit/Lie Unable to do Any Work Considerable Normal or Full or Confusion
Extensive Disease Assistance Req'd Reduced
40% Mainly in Bed Unable to do Most Activity Mainly Assistance Normal or Full or Drowsy;
Extensive Disease Reduced +/- Confusion
30% Totally Bed Unable to do Any Activity Total Care Normal or Full or Drowsy;
Bound Extensive Disease Reduced +/- Confusion
20% Totally Bed Bound Unable to do Any Activity Total Care Minimal to Full or Drowsy;
Extensive Disease Sips +/- Confusion
10% Totally Bed Bound Unable to do Any Activity Total Care Mouth Care Drowsy or Coma;
Extensive Disease Only +/- Confusion
0%
PPS Score Level:
Palliative Performance Scale:
PPS Level Ambulation Activity & Evidence of Disease Self Care Intake Conscious Level
100% Full Normal Activity & Work; Full Intake Full
No Evidence of Disease
90% Full Normal Activity & Work; Full Normal Full
Some Evidence of Disease
80% Full Normal Activity with Effort Full Normal or Full
Some Evidence of Disease Reduced
70% Reduced Unable Normal Job/Work Full Normal or Full
Significant Disease Reduced
60% Reduced Unable Hobby/Housework Occasional Normal or Full or Confusion
Significant Disease Assistance Reduced
50% Mainly Sit/Lie Unable to do Any Work Considerable Normal or Full or Confusion
Extensive Disease Assistance Req'd Reduced
40% Mainly in Bed Unable to do Most Activity Mainly Assistance Normal or Full or Drowsy;
Extensive Disease Reduced +/- Confusion
30% Totally Bed Unable to do Any Activity Total Care Normal or Full or Drowsy;
Bound Extensive Disease Reduced +/- Confusion
20% Totally Bed Bound Unable to do Any Activity Total Care Minimal to Full or Drowsy;
Extensive Disease Sips +/- Confusion
10% Totally Bed Bound Unable to do Any Activity Total Care Mouth Care Drowsy or Coma;
Extensive Disease Only +/- Confusion
0%
PPS Score Level:
Palliative Performance Score Response
Palliative Performance Score Response: 60%
Physical Exam
-
General: Comfortable
HEENT: Normocephalic
Respiratory: Clear to Auscultation
Cardiac: Regular Rhythm
Peripheral Vascular: No Edema
GI: Distended and Ascites
Skin: Warm
Neuro: AO x 3
Psych: Anxious
Care Reviewed
Data Reviewed
Medical Tests: I reviewed
Reviewed with: Patient
--- NOTE | 2024-01-09 12:47 | W.PN.ID1 ---
Date of Service
Date of Service: January 09, 2024
Today's Communication
Continue antibiotics
Assessment / Plan
Abdominal pain
Ascites with significant white count - malignant
- cx neg to date
- repeat paracentesis 01/03 cytology positive malignant cells
MSSA Bacteremia, uncomplicated
- MSSA 1 of 2 sets
Leukocytosis
- improving
Poor appetite
Pancreatic cancer
- recent dx. Had initial visit with Onc within past 2 weeks
- was for SurgOnc eval on 01/03/24
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
Hyponatremia
VIRGILIO (current est. CrCl ~ 19)
Acute hypoxemic respiratory failure
Hx Breast cancer
HTN
Dyslipidemia
DM
Bronchiolitis
Sinusitis
Hx colon polyps
GERD
Nephrolithiasis
Recommendations:
Significant white count in ascites can occur in setting of peritoneal carcinomatous.
SBP ruled out with neg cx.
Continue cefazolin 2g IV q8h for MSSA bacteremia. Abx (d#7); Continue through 01/15/24 to complete 14 days.
TTE negative gross vege
Repeat blood cultures neg to date
Place midline at time of discharge.
Await SNF placement
����������������������������������������������������������
Chief Complaint
-: Leukocytosis and Bacteremia
Subjective / Review of Systems
Patient seen and examined. Notes ongoing abdominal discomfort, although it is controlled. Patient reports that she slept overnight. Chart reviewed. Currently awaiting SNF placement. Case management has been actively working with family although
it appears that family has declined several that she was preapproved for. Additional referrals are pending.
Review of Systems: No Fever and No Chills
Vital Signs / Physical Exam
Vital Signs
Vital Signs
Temp Pulse Resp BP Pulse Ox
98.3 F 108 18 163/85 95
01/09/24 08:17 01/09/24 08:17 01/09/24 08:17 01/09/24 08:17 01/09/24 11:13
Physical Exam
Constitutional: Comfortable, Chronically Ill and Non-toxic
Eyes: Sclera Anicteric
Cardiovascular: S1/S2; Negative S3/S4
Pulmonary: Non Labored
Gastrointestinal: Soft, Tender (diffuse, mild) and Distended (mild)
Extremities: Negative Edema
Neurological: Awake and Alert
Psychological: Calm
Objective Data
Lab Data
Lab Results
01/07/24 08:53
01/07/24 11:20
Estimated Creat Clear 53 ml/min 01/07/24 11:20
Lactic Acid 0.9 mmol/L (0.7-2.0) 01/01/24 10:07
Total Bilirubin 0.5 mg/dl (0.2-1.3) 01/04/24 10:43
AST 22 U/L (14-36) 01/04/24 10:43
ALT 12 U/L (0-35) 01/04/24 10:43
Alkaline Phosphatase 126 U/L (38-126) 01/04/24 10:43
Most recent labs reviewed.
Micro Results:
01/08/24 06:22 Blood Culture - Preliminary
Blood/Venous No Growth in 24 hours- Final report to follow
01/05/24 17:01 Blood Culture - Preliminary
Blood/Venous No Growth in 72 hours- Final report to follow
01/01/24 12:56 Blood Culture - Final
Blood/Venous S aureus-Methicillin Sensitive
Gram Stain - Final
01/04/24 10:08 Body Fluid Culture - Final
Peritoneal Fluid No Growth After 72 Hours
Gram Stain - Final
01/01/24 12:34 Blood Culture - Final
Blood/Venous No Growth - Final Report
01/01/24 10:49 Body Fluid Culture - Final
Peritoneal Fluid No Growth After 72 Hours
Gram Stain - Final
Laboratory Tests
01/01/24
10:49
Fluid WBC 1343
Fluid Mononuclear Cell 34.1
Fl Polymorphonucl Cell 65.9
Imaging:
01/09/2024 Abdominal ultrasound (limited): There is a small amount of ascites in the right lower quadrant, with moderate amount of ascites in the other 3 quadrants.
11/14/2023 Abdominal MRI: Pancreas appears overall atrophic. An ill-defined focus of heterogeneous T2 signal and hypoenhancement along the pancreatic body, which is similar to prior CT. Mild dilatation of the main duct within the distal body and
tail. Perihepatic and perisplenic free fluid which tracks into the paracolic gutters. Findings may represent focal pancreatitis, although findings are suspicious for malignancy. Prominent upper abdominal lymph nodes are noted, but similar to a
prior CT. Please see full dictation for additional detail.
Pathology:
01/04/2024 Peritoneal fluid, ThinPrep slide and cell block: Positive for malignant cells; metastatic adenocarcinoma.
01/03/2024 Peritoneal fluid, ThinPrep slide and cell block: Negative for malignant cells. Acute inflammation present.
Care Review
Plan reviewed with: Nurse and Other (CM)
[2024-01-09] MEDS: DUONEB INH ×2 (13:36→19:24)
[2024-01-09 15:09] VITALS: BP 129/73; PULSE 79; O2SAT 99
[2024-01-09 15:54] VITALS: BP 129/73
[2024-01-09 17:21] LABS: Glucose - Point of Care 249 mg/dl (70-99)
--- NOTE | 2024-01-09 17:42 | CM ---
Addendum entered by Juana Gallardo 01/09/24 18:15:
Patient will not be going to [facility]. I have confirmed that there is a bed available at [facility]; family will drive her there.
Plan: Transfer to [facility] SNF
Report: [phone]

-
Original Note:
Multiple conversations had with Joceline and her family regarding transfer to SNF. Multiple SNFs explored and per daughter, accepted Joceline for admission, however all were false.
Family goal was to find a facility near the appointment that they want to take Joceline tomorrow.
Family went to [facility] and sent me a message stating that per [facility], there is a bed available at [facility]. I have not been able to confirm a bed at [facility].
CM still waiting for confirmation from the facility. Family will drive Joceline to SNF once confirmed.
[facility] Report: [phone]
[facility]
[2024-01-09] MEDS: NOVOLOG FLEXPEN-MODERATE RESISTANCE 300 UNITS SC (17:49)
[2024-01-09] MEDS: LOVENOX 40 MG SC (17:50)
--- NOTE | 2024-01-09 17:54 | PTCARENOTE ---
Patient complains of 'burning' while voiding. Dr. Lopes made aware. Ua ordered.
--- NOTE | 2024-01-09 18:41 | PTCARENOTE ---
Called [facility] to give report with number provided by case management. Voicemail left with call back number.
--- NOTE | 2024-01-16 08:09 | W.DCSUMMARY ---
Discharge Summary
Discharge Data
Date of Admission: 12/31/23
Date of Discharge: 01/09/24
-
Pending Results: No
Hospital Course
Discharging Physician : Dr. Karina Lopes
Primary care physician : Chris Kellogg
Principal Discharge diagnosis : Abdominal distention with ascites due to new diagnosis of pancreatic cancer in November 2023, methicillin sensitive Staphylococcus aureus bacteremia, acute hypoxemic respiratory failure, acute kidney injury
Chronic Discharge diagnosis : Recent diagnosis of pancreatic cancer now metastatic with positive ascitic fluid, anemia of chronic disease, type 2 diabetes mellitus, chronic preserved diastolic congestive heart failure without exacerbation, essential
hypertension, hyperlipidemia, depression
Hospital Course : Patient was a 73-year-old female with a recently diagnosed pancreatic cancer in November 2023 along with other medical issues who presented with a chief complaint of poor oral intake. She reported that she was not eating since
July 2023. 2 weeks prior to admission, patient had a paracentesis and within that timeframe she had an episode of hypoglycemia. She complained of abdominal pain and worsening distention. She denied chest pain or shortness of breath. She had no
cancer directed therapy as of the admission. Patient was admitted.
Problem #1: Abdominal distention with ascites due to new diagnosis of pancreatic cancer. Patient had paracentesis obtained on January 01, 2024 for both diagnostic and therapeutic purposes. Unfortunately, cytology was not ordered on that specimen.
On January 02 I did attempt to add cytology on which was negative. She had 950 mL off at that time. On January 03, patient had another diagnostic paracentesis this time with cytology and this time cytology was positive. Patient had no further
paracentesis since January 03. There were no signs of spontaneous bacterial peritonitis and cultures were negative. She did have a persistently high white blood cell count in her ascitic fluid which was thought to be due to malignancy as opposed to
infection. Patient's SAAG gradient was not consistent with portal hypertension but instead ascitic fluid was likely related to malignancy.
Problem #2: Methicillin sensitive Staphylococcus aureus bacteremia. 1 out of 4 bottles was positive for MSSA bacteremia. Infectious disease was consulted. This was thought not to be a contaminant. She was converted from broad-spectrum
antibiotics to IV cefazolin to complete 2-week course which would end on January 15, 2024.
Problem #3: Acute hypoxemic respiratory failure. Patient was as high as 12 L at one point. Pulmonary was consulted. D-dimer was elevated at 8. Because of her acute kidney injury CT angiography could not be done to look for pulmonary embolism.
VQ scan was done which showed low probability. Patient was able to be weaned off her oxygen. This was thought to be due to poor deconditioning and related to her overall poor functional status at the time of admission.
Problem #4: Acute kidney injury. Patient also had hyperkalemia, hyponatremia, and acute metabolic anion gap acidosis. Nephrology was consulted. IV fluids were provided and eventually the creatinine did improve to 1.0 (baseline was 0.8). Again,
there was no evidence of heart failure or exacerbation thereof.
Problem #5: New diagnosis of pancreatic cancer. Patient was seen in consultation by palliative care. Goals of care as per the family were to get stronger and have chemotherapy. Patient was a patient of Dr. Hamilton at [facility].
Her original appointment was due the week that she presented to the hospital and was admitted, this was pushed back to January 10, 2024. Patient family wanted transfer to [facility] as well as the possibility of a transfer to [facility] where Dr. Blackwood does rounds. I personally spoke with Drs. Hummel and Dr. Abbott respectively from each of those hospitals who declined to accept the patient for an acute transfer. Eventually, chcf facility
was found for the patient to get stronger prior to getting chemotherapy. Unfortunately, patient was in abdominal pain and was only getting Tylenol since family did not want the patient to have anything stronger due to side effects with mental
status changes from narcotics. I also spoke with Dr. Blackwood personally, and explained the clinical course to him. He agrees that she should get stronger at a chcf facility and finish her course of IV antibiotics prior to any
chemotherapy should that be offered. As mentioned, ascitic fluid was now positive from January 04, 2024 which makes her metastatic pancreatic cancer. Limited ultrasound was done on the day of discharge to see if a paracentesis would be needed prior
to discharge. There was a small to moderate amount of ascitic fluid noted but not significant enough for another paracentesis.
Problem #6: All other medical issues. These include anemia of chronic disease, type 2 diabetes mellitus, chronic preserved diastolic congestive heart failure without exacerbation, essential hypertension, hyperlipidemia, depression. These medical
issues were stable during her hospitalization. Medications were continued as able.
USP facility was found. Patient and family are agreeable to discharge. Patient is stable for discharge at this time. If there are any questions regarding this dictation or her hospital stay, please not hesitate to call. Our office
number is [phone].
Total discharge time was 40 minutes.
Discharge Plan
-
Patient Disposition: Shelter/SNF
Discharge Diagnosis/Procedures: MSSA bacteremia;
Abdominal distention due to ascites (from metastatic pancreatic cancer);
Clinical deconditioning due to metastatic pancreatic cancer;
resolved acute kidney injury
Condition: Fair
Diet: As tolerated and Diabetic, Carb Controlled
Activity: As tolerated
Driving Restrictions: Not until seen by your Dr
Referrals:
Chris Kellogg MD [Family Provider] - in less than 1 week
Additional Discharge Medication Instructions: Continue Lantus at 15 units (from 30 units at bedtime)
Your losartan was decreased from 100 to 50 mg daily.
Continue IV antibiotic Ancef for 2 weeks total (through 01/15/24)
Prescriptions:
New
cefazolin 10 gram Recon Soln
2 g IV Q8H Qty: 10 0RF
Continued
amlodipine 2.5 mg Tablet
7.5 mg PO DAILY
(DME) nebulizer accessories Kit
MISCELLANEOUS
Rx Instructions:
BID
atorvastatin 40 mg Tablet
40 mg PO DAILY
metformin 500 mg Tablet
1,000 mg PO BID
fluoxetine 10 mg Tablet
20 mg PO DAILY
omeprazole 40 mg Capsule,Delayed Release(Dr/Ec)
40 mg PO DAILY
nadolol 40 mg Tablet
40 mg PO DAILY
montelukast 10 mg Tablet
10 mg PO DAILY
furosemide 20 mg Tablet
20 mg PO DAILY Qty: 30 0RF
Arnuity Ellipta 100 mcg/actuation Blister With Device
1 inh INHALATION DAILY
Combivent Respimat 20-100 mcg/actuation mist
1 puff inhalation Q6H PRN (Reason: shortness of breath or wheezing) Qty: 4 0RF
calcium 600 mg Capsule
1,200 mg PO DAILY
omega-3 fatty acids Capsule
1,200 mg PO BID
garlic 600 mg Capsule
1,200 mg PO DAILY
biotin 2,500 mcg Tablet
2,500 mcg PO DAILY
vit D3-folic [id number] 2,000-800-0.32 unit-mcg-mg Tablet
1 tab PO BID
Mucus and Cough Relief
PO DAILY
PreserVision AREDS
PO DAILY
Probiotic
PO DAILY
Slow Fe
PO DAILY
Tylenol
PO PRN (Reason: pain)
fiber
PO BID
oxycodone 5 mg Tablet
5 mg PO Q6H PRN (Reason: pain) Qty: 5 0RF
Changed
dronabinol 2.5 mg Capsule
2.5 mg PO BID PRN (Reason: nausea/vomiting) Qty: 0 0RF
Levemir FlexPen 100 unit/mL (3 mL) Insulin Pen
15 unit SC HS Qty: 0 0RF
losartan 50 mg Tablet
50 mg PO DAILY Qty: 0 0RF
Discontinued
amitriptyline 25 mg Tablet
25 mg PO DAILY
Novolog Mix 70-30 U-100 Insuln
subcut (via wearable injectr) PRN PRN (Reason: high blood sugar)
Patient Comments:
patient staes she has not used this in quite awhile
morphine 15 mg Tablet Extended Release
15 mg PO Q12H
Discharge Orders:
Discharge Patient (As Directed); Ordered 01/09/24
Ordered By: Karina Lopes
Discharge Date and Time
Discharge Date/Time: 01/09/24 19:51
Print Language: GAMBIAN
== END 2024-01-09 19:51 | DRG 374 ==
LOC: 4 EAST ACU 16:50
PROVIDERS: Internal Medicine; Nurse Practitioner; Nurse Practitioner Gerontology; Radiology Diagnostic Radiology; Radiology Vascular & Interventional Radiology; Specialist; ADMITTING PHYSICIAN Internal Medicine; ATTENDING PHYSICIAN Internal Medicine; CONSULT PHYSICIAN Internal Medicine; CONSULT PHYSICIAN Internal Medicine Hospice and Palliative Medicine; EMERGENCY PHYSICIAN Emergency Medicine; FAMILY PHYSICIAN Family Medicine; OTHER PHYSICIAN Internal Medicine Infectious Disease
PROC: 5A09357 Assistance with Respiratory Ventilation, Less than 24 Consecutive Hours, Continuous Positive Airway Pressure (ICD-10-PCS; 2024-01-01)
PROC: 0W9G3ZX Drainage of Peritoneal Cavity, Percutaneous Approach, Diagnostic (ICD-10-PCS; 2024-01-01)
PROC: CB1YYZZ Planar Nuclear Medicine Imaging of Respiratory System using Other Radionuclide (ICD-10-PCS; 2024-01-02)
PROC: 0W9G3ZZ Drainage of Peritoneal Cavity, Percutaneous Approach (ICD-10-PCS; 2024-01-04)
DX: C78.6 Secondary malignant neoplasm of retroperitoneum and peritoneum (principal); G92.8 Other toxic encephalopathy; J96.01 Acute respiratory failure with hypoxia; C25.9 Malignant neoplasm of pancreas, unspecified; R18.0 Malignant ascites; I50.32 Chronic diastolic (congestive) heart failure; E87.1 Hypo-osmolality and hyponatremia; N17.9 Acute kidney failure, unspecified; J44.0 Chronic obstructive pulmonary disease with (acute) lower respiratory infection; J98.11 Atelectasis; E87.20 Acidosis, unspecified; J21.9 Acute bronchiolitis, unspecified; R78.81 Bacteremia; Z51.5 Encounter for palliative care; R53.1 Weakness; E78.00 Pure hypercholesterolemia, unspecified; I11.0 Hypertensive heart disease with heart failure; E86.0 Dehydration; E87.5 Hyperkalemia; R62.7 Adult failure to thrive; F32.A Depression, unspecified; E11.65 Type 2 diabetes mellitus with hyperglycemia; J31.0 Chronic rhinitis; J32.9 Chronic sinusitis, unspecified; D75.839 Thrombocytosis, unspecified; D63.8 Anemia in other chronic diseases classified elsewhere; K21.9 Gastro-esophageal reflux disease without esophagitis; K22.70 Barrett's esophagus without dysplasia; R45.1 Restlessness and agitation; F22 Delusional disorders; G47.33 Obstructive sleep apnea (adult) (pediatric); D72.829 Elevated white blood cell count, unspecified; K59.00 Constipation, unspecified; B95.61 Methicillin susceptible Staphylococcus aureus infection as the cause of diseases classified elsewhere; Z66 Do not resuscitate; Z79.84 Long term (current) use of oral hypoglycemic drugs; Z85.3 Personal history of malignant neoplasm of breast; Z90.49 Acquired absence of other specified parts of digestive tract; Z79.4 Long term (current) use of insulin; Z79.51 Long term (current) use of inhaled steroids; Z90.710 Acquired absence of both cervix and uterus; Z90.10 Acquired absence of unspecified breast and nipple; Z86.0100 Personal history of colon polyps, unspecified; Z83.3 Family history of diabetes mellitus; Z87.442 Personal history of urinary calculi; Z74.01 Bed confinement status
CPT/HCPCS: 88305; 93308; 36600; 49083; 51701; 70450; 71045; 71046; 76705; 76775; 78582; 80048; 80053; 81003; 82010; 82042; 82150; 82570; 82728; 82805; 82962; 83540; 83550; 83605; 83735; 83880; 83930; 83935; 84100; 84157; 84300; 85025; 85027; 85379; 87015; 87040; 87070; 87147; 87186; 87205; 88112; 89051; 92610; 93005; 93321; 93325; 93970; 94640; 96360; 97110; 97116; 97163; 97167; 97535; 99285; A9540; A9567; J2916; J7030

== ENCOUNTER 2024-02-12 17:23 | Inpatient (IN) | payer MEDICARE, OTHER, SELFPAY ==
[2024-02-12] VITALS (13 sets, daily range): BP systolic 74–121; BP diastolic 49–66; PULSE 85–94; BMI 22.3
[2024-02-12 12:40] LABS: APTT 24.9 Sec (23.4-35.0); INR 1.14; PT 14.9 Sec (11.4-14.6)
[2024-02-12 12:52] LABS: ALT (SGPT) 11 U/L (0-35); AST (SGOT) 20 U/L (14-36); Albumin 2.9 g/dl (3.5-5.0); Alkaline Phosphatase 160 U/L (38-126); Blood Urea Nitrogen 29 mg/dl (7-17); Calcium 7.9 mg/dl (8.4-10.2); Carbon Dioxide 22 mmol/L (22-30); Chloride 101 mmol/L (98-107); Estimated Creatinine Clearance 71 ml/min; Glucose 202 mg/dl (70-99); Potassium 3.8 mmol/L (3.5-5.1); Sodium 136 mmol/L (135-145); Total Bilirubin 0.5 mg/dl (0.2-1.3); Total Protein 6.8 g/dl (6.3-8.2); eGFR > 60.00
--- NOTE | 2024-02-12 13:12 | ED.GENMED ---
History of Present Illness
General
Chief Complaint: Fall
Source: patient
Exam Limitations: none
Time Seen by Provider: 02/12/24 11:37
Nursing documentation reviewed up to this point in time: agreed with
History of Present Illness
History of Present Illness:
pt is a 73 y/o F
with stage IV pancreatic cancer
mechanical fall
pt says she was walking with her walker and thinks the walker got stuck on the rug causing her to fall backwrads onto the hardwood floor. she hit her head without LOC
was unable to get up due to feeling generally weak which has been ongoing and progressively worse with exertion/movement
pt has no blood thinners
she felt lightheaded when she tired to get herself up so she laid on the ground for about 45 minutes before a friend found her
she has pain in her coccyx region an dher L hip
otherwise no singificant headache, denies nekc pain, cp, sob, vomiting, diarrhea.
Past History
Past History
ED Past Medical History: Cancer, HTN, Hypercholesterolemia and IDDM
ED Past Surgical History: Appendectomy, Gynecological and Other
Social History
Tobacco: Non-smoker
Alcohol: None
Drug: None
Personal:
Living: with family
Phy Exam
Physical Exam
Physical Exam:
GENERAL: Alert , in no apparent distress
HEAD: NCAT
NECK: no midline tenderness, active ROM intact, no paraspinal muscle tenderness;
EYE: pupils equal and reactive, EOMs intact. VERY PALE
ENT: o/p clr, mmm. no hemotympanum
CARDIAC: Regular rate and rhythm, no edema
LUNGS: Clear breath sounds bilaterally, no acute respiratory distress, no wheezes/rales/rhonchi
ABDOMEN: Soft, distended, soft, fluid; mild ascites; without focal tenderness, no r/g, no cvat
NEUROLOGICAL: Alert and oriented, no focal neuro deficits, CN intact, 5/5 strength, sensation intact
SKIN: Warm and dry, PALE
MUSCULOSKELETAL: No edema, well perfused.
PSYCH: Normal and appropriate interaction.
Course
Orders/Labs/Results
Orders:
Orders
02/12/24 11:41
EKG [Electrocardiogram (*1)] Urgent
Reason for Study: Vertigo / Dizzy
EKG- Treatment ONCE
02/12/24 12:04
CT Head W/o Iv Contrast Urgent
Comment:
Reason For Exam: fall head strike, pancreatic ca
Hip, Left 2-3 Views [CR Hip - LT w/wo Pel 2-3 Vw*] Urgent
Comment:
Reason For Exam: fall left hip pain
Include a pelvis x-ray?: Yes
Lumbar Spine Complete, 4 View [CR Lumbar Spine Comp Min 4 Vw*] Urgent
Comment:
Reason For Exam: fall back pain
02/12/24 12:24
Type+Screen Urgent
Comprehensive Metabolic Panel Urgent
PTT Urgent
Prothrombin Time Urgent
02/12/24 13:02
ABO2 Urgent
BBK Wristband Number:
Associate notified that ABO2 has been ordered: [id number]
Date: 02/12/24
Time: 12:37
Professor Of Fine Art ID: [id number]
02/12/24 13:14
Complete Blood Count/With Diff Urgent
02/12/24 14:03
Orthostatic VS- Treatment ONCE
02/12/24 14:29
0.9% Sodium Chloride 500 ml [Nss] 500 ml IV BOLUS
02/12/24 16:41
0.9% Sodium Chloride 500 ml [Nss] 500 ml IV BOLUS
02/12/24 17:01
Admit/Transfer Patient As Directed
Co-Sign Provider:
Level of Care: Inpatient admission
Assign to:: Medical/Surgical
Physician / Group: Hospitalist
Diagnosis: Orthostatic hypotension
Reason for Hospitalization: .
Expected length of stay greater than two midnights?: Yes
ELOS- Estimated Length of Stay in days: 3
I certify the patient meets the requirements for IP care: Yes
PRN Pain Medication Management As Directed
May give lesser potent ordered pain med per pt: Yes
preference::
Protocol:: Medication orders for pain may be administered in a
manner that supports deferring to patient preference
when the pt is:
- Requesting an ordered lesser potent pain medication.
Least to most potent pain medications are defined
as: acetaminophen < NSAID < tramadol < opioids
(morphine, oxycodone, hydromorphone).
- Requesting a lesser dose of the same medication IF
ORDERED.
- Requesting a less intrusive route of administration
if both routes are prescribed by the provider (PO <
IV).
02/12/24 17:03
Code Status As Directed
Resuscitation Status: Full Code
Abnormal Lab Results
02/12/24 02/12/24
12:24 13:14
RBC 3.43 L 10^6/uL
(4.20-5.40)
Hgb 10.1 L g/dL
(12.0-16.0)
Hct 32.0 L %
(37.0-47.0)
MCHC 31.6 L g/dL
(33.0-37.0)
RDW 21.3 H %
(11.5-14.5)
Abs Immat Gran (auto) 0.1 H 10^3/uL
(0-0.05)
Absolute Neuts (auto) 6.7 H 10^3/uL
(1.4-6.5)
Absolute Lymphs (auto) 0.6 L 10^3/uL
(1.2-3.4)
Immature Gran % 0.6 H %
(0-0.5)
Neutrophils % 85.6 H %
(42.2-75.2)
Lymphocytes % 8.2 L %
(20.5-51.1)
PT 14.9 H Sec
(11.4-14.6)
BUN 29 H mg/dl
(7-17)
Glucose 202 H mg/dl
(70-99)
Calcium 7.9 L mg/dl
(8.4-10.2)
Alkaline Phosphatase 160 H U/L
(38-126)
Albumin 2.9 L g/dl
(3.5-5.0)
02/12/24 13:14
02/12/24 12:24
Vital Signs
Initial and Last Documented VS:
Initial Vital Signs
Temp BP
98.0 F 115/57
02/12/24 11:34 02/12/24 11:34
Last Documented Vital Signs
Temp Pulse Resp BP Pulse Ox
98.0 F 93 26 91/53 93
02/12/24 11:34 02/12/24 16:30 02/12/24 16:30 02/12/24 15:59 02/12/24 16:30
MDM/Problems Addressed
Differential Diagnosis Includes:
orthostasis, falls, dehydration, weakness, anemia
MDM/Problems Addressed:
73 y/o F stage IV pancreatic ca, dnr, but she isn't eating; has had weeks/days of increased dizziness with standing, feels lightheaded and has to sit back down; today she fell backwards but that sounds like more of a walker got caught on the rug;
w/u for the fall neg; she looked pretty pale but her hg is higher than normal probably because she is so dry;
orthostatics very positive, drops to 70s standing and was very sypmtomatic; given fluids and still orthostatic, numbers a little better but admitting for ivf overnight;
*Critical Care Note
Total Time (30-74mins, 75-104mins- exclusive of procedures): Not Applicable
ED Attending Note
-
Portions of this chart may have been created with voice recognition software.� Occasional wrong word or��sound alike� substitutions may have occurred due to the inherent limitations of voice recognition software.
Discharge Plan
Departure
Patient Disposition: Admit
Date of Disposition: 02/12/24
Time of Disposition: 16:02
Admit to: Med/Surg
Presentation/result/management discussed w/ accepting MD/DO: Hospitalist
Condition: Fair
Covid-19: Not Applicable
Discharge Problem:
Orthostasis, Dehydration
Prescriptions:
No Action
amlodipine 2.5 mg Tablet
7.5 mg PO DAILY
omeprazole 40 mg Capsule,Delayed Release(Dr/Ec)
40 mg PO DAILY
nadolol 40 mg Tablet
40 mg PO DAILY
montelukast 10 mg Tablet
10 mg PO DAILY
furosemide 20 mg Tablet
20 mg PO DAILY Qty: 30 0RF
Arnuity Ellipta 100 mcg/actuation Blister With Device
1 inh INHALATION R DAILY
acetaminophen 500 mg Tablet
1,000 mg PO Q6HPRN PRN (Reason: mild pain/OLMEDO) Qty: 0
losartan 50 mg Tablet
50 mg PO DAILY Qty: 0 0RF
tramadol 50 mg tablet
50 mg PO HS
amitriptyline 25 mg tablet
25 mg PO HS
fluoxetine 20 mg capsule
20 mg PO DAILY
Combivent Respimat 20-100 mcg/actuation mist
1 puff inhalation R Q6HPRN PRN (Reason: shortness of breath or wheezing)
Referrals:
Yaritza Hutchison DO [Family Provider] -
Interventions
Interventions:
*Risk Screen - Suicide Last Done: 02/12/24 11:45
*General Assessment Last Done: 02/12/24 11:40
*Neglect/Abuse Screening Last Done: 02/12/24 11:45
*ED COVID-19 Vaccine History Last Done: 02/12/24 11:40
ED-Musculoskeletal Assessment Last Done: 02/12/24 11:43
ED- Neurological Assessment Last Done: 02/12/24 11:43
ED-Skin Assessment Last Done: 02/12/24 11:43
Discharge Date and Time
Print Language: [place]
[2024-02-12 14:01] LABS: % Basophils 0.4 % (0-2); % Eosinophils 0.3 % (0-6); % Immature Granulocytes 0.6 % (0-0.5); % Lymphocytes 8.2 % (20.5-51.1); % Monocytes 4.9 % (1.7-9.3); % Neutrophils 85.6 % (42.2-75.2); Absolute Immature Granulocytes 0.1 10^3/uL (0-0.05); Absolute Lymphocytes 0.6 10^3/uL (1.2-3.4); Absolute Monocytes 0.4 10^3/uL (0.1-0.6); Absolute Neutrophils 6.7 10^3/uL (1.4-6.5); Hemoglobin 10.1 g/dL (12.0-16.0); Mean Corp Hgb Conc. 31.6 g/dL (33.0-37.0); Mean Corpuscular Hgb 29.4 pg (27.0-31.0); Mean Corpuscular Volume 93.3 fL (81.0-99.0); Mean Platelet Volume 8.9 fL (7.4-10.4); Nucleated Red Blood Cells % 0 %; Platelet Count 303 10^3/uL (130-400); Red Blood Cell Count 3.43 10^6/uL (4.20-5.40); Red Cell Dist. Width 21.3 % (11.5-14.5); White Blood Cell Count 7.8 10^3/uL (4.8-10.8)
[2024-02-12] MEDS: NSS 500 IV ×2 (15:03→16:47)
--- NOTE | 2024-02-12 16:49 | HPS.HSE ---
Family Physician
-
Family Physician: Yaritza Hutchison
Chief Complaint
-
Fall with weakness at home
History of Present Illness
73 years old female with history of metastatic pancreatic cancer presented with dizziness, fall at home. Imaging studies including CT head did not show acute findings in the ER. Patient was noted to have symptomatic orthostatic hypotension.
Patient reported loss of appetite at home. No fever or chills. Normal white blood cells count. Patient takes 4 types of blood pressure medications at home.
Medical History
Past Medical History
Past Medical History: Reports Other ( Pancreatic cancer, breast cancer, ascites, history of renal insufficiency, anemia, history of delusion, depression, type 2 diabetes, respiratory insufficiency, MSSA bacteremia, chronic heart failure with
preserved ejection fraction, hypertension, hyperlipidemia, bronchiolitis, GERD, kidney stones.)
Past Surgical History: Reports Other (No recent major surgery)
Social History
Tobacco: Non-smoker
Alcohol: None
Drug: None
Personal:
Living: With Family
Employment: Retired
Family History
Family History: Not pertinent
Allergies / Home Medications
Allergies reflects when Allergies were last updated in [employer].
Home Medications with original date entered in [employer]
Allergy/Medication List:
Allergies
Allergy/AdvReac Type Severity Reaction Status Date / Time
No Known Allergies Allergy Verified 02/12/24 11:34
Home Medications
amlodipine 2.5 mg tablet 7.5 mg PO DAILY Blood Pressure 11/02/23
montelukast 10 mg tablet 10 mg PO DAILY Lung/Breathing Issues 11/02/23
nadolol 40 mg tablet 40 mg PO DAILY Blood Pressure 11/02/23
omeprazole 40 mg capsule,delayed release 40 mg PO DAILY Gastrointestinal Issue 11/02/23
fluticasone furoate 100 mcg/actuation blister powder for inhalation (Arnuity Ellipta) 1 inh inhalation R DAILY Lung/Breathing Issues 11/04/23
furosemide 20 mg tablet 20 mg PO DAILY #30 tabs 11/04/23
acetaminophen 500 mg tablet 1,000 mg PO Q6HPRN PRN mild pain/OLMEDO ##0 12/06/23
losartan 50 mg tablet 50 mg PO DAILY Blood Pressure #0 tabs 01/09/24
amitriptyline 25 mg tablet 25 mg PO HS 02/12/24
fluoxetine 20 mg capsule 20 mg PO DAILY 02/12/24
ipratropium 20 mcg-albuterol 100 mcg/actuation mist for inhalation (Combivent Respimat) 1 puff inhalation R Q6HPRN PRN shortness of breath or wheezing 02/12/24
tramadol 50 mg tablet 50 mg PO HS 02/12/24
Review of Systems
-
History Source: Patient
A 12 point ROS was completed and negative except as noted: Yes
Constitutional: Reports Fatigue; Denies Fever or Chills
EENT: Denies Sore Throat
Respiratory: Denies Cough
Cardiac: Denies Chest Pain
Abdomen/GI: Denies Abdominal Pain
: Denies Dysuria
Musculoskeletal: Denies Joint Pain
Skin: Denies Itching
Neurological: Reports Weakness
Endocrine: Denies Temp Intolerance
Hematologic/Lymphatic: Denies Bruising
Psych: Denies Panic Disorder
Physical Exam
Vital Signs
Vital Signs
Temp Pulse Resp BP Pulse Ox
98.0 F 93 26 91/53 93
02/12/24 11:34 02/12/24 16:30 02/12/24 16:30 02/12/24 15:59 02/12/24 16:30
Physical Exam
General: No Apparent Distress and Appears Chronically Ill
HEENT: Moist mucous membranes and Atraumatic
Respiratory: No Wheezes or Rales
Cardiac: S1/S2
GI: Soft, Non Tender and Other (Right anterior paracentesis access)
Rectal: No Maroon Stools
Genito-urinary: No Mata
Musculoskeletal: No Cyanosis
Skin: No Jaundice
Neuro: AO x 3 and Nonfocal/grossly intact
Psych: Calm and Intact Judgment/Insight
Laboratory Results
-
02/12/24 13:14
02/12/24 12:24
Laboratory Results
PT 14.9 Sec (11.4-14.6) H 02/12/24 12:24
INR 1.14 02/12/24 12:24
APTT 24.9 Sec (23.4-35.0) 02/12/24 12:24
Total Bilirubin 0.5 mg/dl (0.2-1.3) 02/12/24 12:24
AST 20 U/L (14-36) 02/12/24 12:24
ALT 11 U/L (0-35) 02/12/24 12:24
Alkaline Phosphatase 160 U/L (38-126) H 02/12/24 12:24
Impression/Plan
-
73 years old female who had a fall at home and presented to the ER with weakness. She was found to have symptomatic orthostatic hypotension
# Symptomatic orthostatic hypotension
Admit the patient to the hospital.
Per ER doctor systolic blood pressure dropped to 70s and pt felt very dizzy upon standing in ER.
Likely secondary to poor oral intake with taking blood pressure medications
Will give mild IV fluid.
Will adjust blood pressure medications.
Patient denied abdominal pain. No fever. No leukocytosis.
Check orthostatic vitals BID.
# History of pancreatic cancer, metastatic with positive peritoneal metastasis.
Patient has not started her chemotherapy.
Patient reported that she decided not to pursue cancer treatment after her visit with [facility] oncology, and she is currently on hospice care with [facility]. Consult special education case manager for dc planning and to confirm services.
# Weight loss, underweight due to malignancy
Her BMI dropped since last hospitalization
will c/w liberate diet without restrictions.
# Obstructive sleep apnea syndrome
# Pulmonary nodules
#MSSA bacteremia, she finished course of IV antibiotics
# Anemia of chronic disease. No bleeding.
# type DM2--cont insulin as able
c/w metformin
# Chronic HFpEF--follow volume status
# Essential HTN--
It seems her BP medications were reduced during last admission due to low BP.
Will hold Lasix and losartan. Continue with low-dose furosemide. Continue with Nadolol.
#HLD-
#Depression--Mood is cooperative
# Code status- DNR , confirmed with patient.
DVT prophylaxis -SC heparin
Total time spent to see the patient, examine the patient, review data and lab results, discuss treatment plan with patient, ER Doctor, nursing staff around 75 minutes
[2024-02-12] MEDS: NSS 1000 IV (20:53)
[2024-02-12] MEDS: FLUSH (NSS) 1 FLUSH IV (20:58)
[2024-02-12] MEDS: ULTRAM 50 MG PO (21:01)
[2024-02-12] MEDS: HEPARIN SC ×2 (21:01→22:45)
[2024-02-12] MEDS: ELAVIL 25 MG PO (21:02)
[2024-02-12 21:52] LABS: Glucose - Point of Care 222 mg/dl (70-99)
[2024-02-13 07:13] VITALS: BP 128/72
--- NOTE | 2024-02-13 07:39 | PTCARENOTE ---
Pt aaox3 able to make her needs known. Pt placed on bed alarm for safety. Pt bedrest at this time as pt feels dizzy.Bedpan provided to pt as needed.Plan of care continued.
[2024-02-13] MEDS: TYLENOL 1000 MG PO (07:42)
[2024-02-13] MEDS: FLOVENT 44 MCG INHALER 2 PUFF INH ×2 (07:49→21:44)
[2024-02-13 08:37] LABS: Glucose - Point of Care 193 mg/dl (70-99)
[2024-02-13] MEDS: HEPARIN 5000 UNITS SC ×2 (08:41→22:04)
[2024-02-13] MEDS: CORGARD 40 MG PO (08:43)
[2024-02-13] MEDS: PROTONIX 40 MG PO (08:43)
[2024-02-13] MEDS: PROZAC 20 MG PO (08:45)
[2024-02-13] MEDS: SINGULAIR 10 MG PO (08:45)
[2024-02-13] MEDS: NOVOLOG FLEXPEN-LOW RESISTANCE 1 UNITS SC ×2 (09:23→17:36)
--- NOTE | 2024-02-13 09:30 | W.PN.HOSP.TC ---
Today's Communication/Plan
-
See bold
Assessment / Plan
Assessment / Plan
HPI: 73 years old female with history of metastatic pancreatic cancer presented with dizziness, fall at home. Imaging studies including CT head did not show acute findings in the ER. Patient was noted to have symptomatic orthostatic hypotension.
Patient reported loss of appetite at home. No fever or chills. Normal white blood cells count. Patient takes 4 types of blood pressure medications at home.
# Symptomatic orthostatic hypotension
Orthostatic vital signs are positive, start midodrine 2.5 mg 3 times a day
Hold home blood pressure medications, she self discontinued for several days prior to admission
Check orthostatic vital signs daily 1 hour after giving midodrine
Trial of meclizine prn vertigo
# History of pancreatic cancer, metastatic with positive peritoneal metastasis.
Patient has not started her chemotherapy.
Patient reported that she decided not to pursue cancer treatment after her visit with [facility] oncology, and she is currently on hospice care with [facility].
Consult supportive employment case manager for dc planning and to confirm services.
# Constipation
Start MiraLAX
# Weight loss, underweight due to malignancy
Her BMI dropped since last hospitalization
Will liberate diet without restrictions.
# Obstructive sleep apnea syndrome
# Pulmonary nodules
#MSSA bacteremia, s/pourse of IV antibiotics
# Anemia of chronic disease. No bleeding.
# Type DM2
SSI
Patient no longer on metformin
# Chronic HFpEF
Follow volume status
# Essential HTN
It seems her BP medications were reduced during last admission due to low BP.
Will hold Lasix and losartan. Continue with low-dose furosemide. Continue with Nadolol.
#HLD
#Depression
Continue SSRI
DVT prophylaxis�subcu heparin
DNR
Total time spent to see the patient on the floor, examine the patient, review data and lab results, discuss treatment plan with patient, nursing staff around 50 minutes.
Physical Exam
General: Appears chronically ill, no acute distress
HEENT: Normocephalic, Atraumatic, EOMI, MMM
Respiratory: Clear to Auscultation bilaterally
Cardiac: Normal S1/S2, Regular Rate and Rhythm
GI: Soft, tender to palpation, distended, masses noted
Extremities: No Clubbing, Cyanosis, or Edema
Neuro: Nonfocal/Grossly Intact
Psych: Calm, Cooperative
Derm: No Visible lesions
Anticipated Discharge: 24 - 48 hours
Subjective/Interval History
-
Date of Service: February 13, 2024
Reports headache, dizziness with standing. Also has poor appetite.
Objective Data
-
Vital Signs:
Vital Signs
Temp Pulse Resp BP Pulse Ox
97.9 F 92 16 120/64 96
02/12/24 23:33 02/13/24 07:52 02/13/24 07:52 02/12/24 23:33 02/13/24 07:52
I&O
02/12/24 02/13/24 02/14/24
06:59 06:59 06:59
Intake Total 1120 / 1120
Balance 1120 / 1120
[2024-02-13 10:55] VITALS: BP 102/56; BP 111/52; BP 87/50; BP 97/52; PULSE 89; PULSE 90; O2SAT 94
[2024-02-13 11:16] VITALS: BP 102/56; BP 111/52; BP 87/50; BP 97/52
[2024-02-13] MEDS: NSS 1000 IV (11:27)
--- NOTE | 2024-02-13 11:39 | CM ---
Pt seen bedside w/ family. Pt lives w/ spouse in [facility]- 2 steps to enter
Pt uses walker for short distances and a wheel chair for community distances
Pt has shower chair, grab bars and a raised toilet seat in the home for additional support
Had skilled rehab at [facility] in the past
Had [facility] in the past
Address, point of contacts and insurance verified
PCP: Dr. Yaritza Hutchison
Pharmacy: [facility]
Per PT/OT, current recommendation of HH
Per pt she was receiving hospice care through [facility] prior to hospital admission and wishes to resume when she d/c home
Spoke w/ Kristopher/[facility], confirmed that pt does receive hospice care at home
[facility]

Report: [phone]
Plan: Home w/ resumption of hospice care through [facility]
--- NOTE | 2024-02-13 12:02 | PTCARENOTE ---
At change of shift patient was reporting fear of falling out of bed. Patient admitted with dizziness. Confusion noted, patient said ' her bed was on the ceiling and IV pole was bent.' Med sitter in place as precaution to monitor.
[2024-02-13 12:03] LABS: Glucose - Point of Care 250 mg/dl (70-99)
[2024-02-13] MEDS: ProAmatine 2.5 MG PO ×2 (12:20→17:35)
[2024-02-13] MEDS: MIRALAX 17 GRAMS PO (12:20)
[2024-02-13] MEDS: NOVOLOG FLEXPEN-LOW RESISTANCE 3 UNITS SC (12:21)
[2024-02-13 14:54] VITALS: BMI 22.3
[2024-02-13 15:41] VITALS: BP 111/66
[2024-02-13 17:03] LABS: Glucose - Point of Care 211 mg/dl (70-99)
[2024-02-13] MEDS: ULTRAM 50 MG PO (21:34)
[2024-02-13] MEDS: ELAVIL 25 MG PO (21:34)
[2024-02-13 21:42] LABS: Glucose - Point of Care 149 mg/dl (70-99)
[2024-02-13] MEDS: MIRALAX PO (22:43)
[2024-02-13 23:21] VITALS: BP 135/73
[2024-02-14] MEDS: NSS 1000 IV (03:13)
[2024-02-14 03:47] VITALS: BP 102/63; BP 125/68; PULSE 85; PULSE 92
[2024-02-14] MEDS: PROTONIX 40 MG PO (08:05)
[2024-02-14] MEDS: PROZAC 20 MG PO (08:05)
[2024-02-14] MEDS: SINGULAIR 10 MG PO (08:05)
[2024-02-14] MEDS: FLOVENT 44 MCG INHALER 2 PUFF INH (08:05)
[2024-02-14] MEDS: ProAmatine 2.5 MG PO (08:05)
[2024-02-14 08:06] LABS: Glucose - Point of Care 144 mg/dl (70-99)
[2024-02-14] MEDS: HEPARIN 5000 UNITS SC (08:06)
[2024-02-14] MEDS: MIRALAX 17 GRAMS PO (08:07)
[2024-02-14] MEDS: CORGARD 40 MG PO (08:07)
[2024-02-14] MEDS: NOVOLOG FLEXPEN-LOW RESISTANCE SC ×2 (08:15→17:53)
[2024-02-14 08:18] VITALS: BP 111/62
[2024-02-14 10:29] VITALS: BP 101/50; BP 114/57; BP 90/51; PULSE 80; PULSE 84; PULSE 87
--- NOTE | 2024-02-14 11:58 | CM ---
continues to follow for discharge to home with resumption of [facility] hospice services when medically ready. PT and OT services recommended for home. Will notify Hospice of same prior to discharge.
Plan: Discharge to home with [facility] at home for RN, PT and OT services.
[facility]

Report: [phone]
[2024-02-14 12:08] LABS: Glucose - Point of Care 206 mg/dl (70-99)
[2024-02-14] MEDS: ProAmatine 5 MG PO (12:39)
[2024-02-14] MEDS: NOVOLOG FLEXPEN-LOW RESISTANCE 2 UNITS SC (12:40)
[2024-02-14 13:02] LABS: Blood Urea Nitrogen 15 mg/dl (7-17); Carbon Dioxide 19 mmol/L (22-30); Chloride 107 mmol/L (98-107); Estimated Creatinine Clearance 71 ml/min; Glucose 237 mg/dl (70-99); Potassium 3.9 mmol/L (3.5-5.1); Sodium 136 mmol/L (135-145); eGFR > 60.00
[2024-02-14 13:58] VITALS: BP 103/55; BP 107/56; BP 117/63; PULSE 82; PULSE 83; PULSE 85
[2024-02-14 15:23] LABS: Hematocrit 27.5 % (37.0-47.0); Mean Corp Hgb Conc. 32.7 g/dL (33.0-37.0); Mean Corpuscular Volume 91.7 fL (81.0-99.0); Mean Platelet Volume 8.7 fL (7.4-10.4); Platelet Count 308 10^3/uL (130-400); Red Cell Dist. Width 21.2 % (11.5-14.5); White Blood Cell Count 8.9 10^3/uL (4.8-10.8)
--- NOTE | 2024-02-14 15:44 | W.PN.HOSP.TC ---
Addendum entered and electronically signed by Khoi Reina MD 02/15/24 09:13:
Patient has severe protein calorie malnutrition.
Suspect orthostatic hypotension is multifactorial, due to dehydration, taking BP meds, and neurogenic.
Original Note:
Today's Communication/Plan
-
Increase midodrine to 10 mg 3 times daily, first dose at 5 PM
Repeat orthostatics at 6 PM
Possible discharge if dizziness resolves
Assessment / Plan
Assessment / Plan
HPI: 73 years old female with history of metastatic pancreatic cancer presented with dizziness, fall at home. Imaging studies including CT head did not show acute findings in the ER. Patient was noted to have symptomatic orthostatic hypotension.
Patient reported loss of appetite at home. No fever or chills. Normal white blood cells count. Patient takes 4 types of blood pressure medications at home.
# Symptomatic orthostatic hypotension
Orthostatic vital signs are positive, started on midodrine 02/12
Hold home blood pressure medications, she self discontinued for several days prior to admission
Increase midodrine to 10 mg 3 times daily, first dose at 5 PM
Repeat orthostatics at 6 PM
Possible discharge if dizziness resolves
# History of pancreatic cancer, metastatic with positive peritoneal metastasis.
Patient has not started her chemotherapy.
Patient reported that she decided not to pursue cancer treatment after her visit with [facility] oncology, and she is currently on hospice care with [facility].
Consult outsole caser for dc planning and to confirm services.
# Constipation
Started on MiraLAX
# Weight loss, underweight due to malignancy
Her BMI dropped since last hospitalization
Will liberate diet without restrictions.
# Obstructive sleep apnea syndrome
# Pulmonary nodules
#MSSA bacteremia, s/pourse of IV antibiotics
# Anemia of chronic disease. No bleeding.
# Type DM2
SSI
Patient no longer on metformin
# Chronic HFpEF
Follow volume status
# Essential HTN
It seems her BP medications were reduced during last admission due to low BP.
Will hold Lasix and losartan. Continue with low-dose furosemide. Continue with Nadolol.
#HLD
#Depression
Continue SSRI
DVT prophylaxis�subcu heparin
DNR
Total time spent to see the patient on the floor, examine the patient, review data and lab results, discuss treatment plan with patient, nursing staff around 51 minutes.
Physical Exam
General: Appears chronically ill, no acute distress
HEENT: Normocephalic, Atraumatic, EOMI, MMM
Respiratory: Clear to Auscultation bilaterally
Cardiac: Normal S1/S2, Regular Rate and Rhythm
GI: Soft, tender to palpation, distended, masses noted
Extremities: No Clubbing, Cyanosis, or Edema
Neuro: Nonfocal/Grossly Intact
Anticipated Discharge: Within 24 hours
Subjective/Interval History
-
Date of Service: February 14, 2024
Patient reports dizziness with standing, improved from prior. No fever, no vomiting.
Objective Data
-
Labs:
Laboratory Results
02/14/24
06:00
WBC Pending
Hgb Pending
Hct Pending
Plt Count Pending
Sodium Pending
Potassium Pending
Chloride Pending
Carbon Dioxide Pending
BUN Pending
Creatinine Pending
Glucose Pending
Calcium Pending
Vital Signs:
Vital Signs
Temp Pulse Resp BP Pulse Ox
98.3 F 90 18 111/62 94
02/14/24 08:18 02/14/24 08:18 02/14/24 08:18 02/14/24 08:18 02/14/24 08:18
I&O
02/13/24 02/14/24 02/15/24
06:59 06:59 06:59
Intake Total 1120 / 1120 360 / 360
Balance 1120 / 1120 360 / 360
[2024-02-14 15:54] VITALS: BP 119/63
[2024-02-14] MEDS: ProAmatine 10 MG PO (16:46)
[2024-02-14 16:48] VITALS: BP 111/63; BP 118/62; BP 118/63; BP 126/67; PULSE 82; O2SAT 98
[2024-02-14 17:05] LABS: Glucose - Point of Care 205 mg/dl (70-99)
--- NOTE | 2024-02-15 07:27 | PN.CDI ---
CDI
- -
CDI:
Physician Documentation Request
Admit Date: 02/12/24 17:23
Dear Doctor Do,
Please review the following and provide your response in the progress notes.
Clinical Indicators:
Pt admitted with Orthostatic Hypotension likely 2/2 dehydration
Documented in the record, ' Weight loss, underweight due to malignancy Her BMI dropped since last hospitalizationWill liberate diet without restrictions. '
Documented per Nutrition, ' Pt reports a 30 lb weight since dx with pancreatic ca in July. 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 Pt states reports taste and smell changes. Family confirms this. Pt had lunch in front of her
< 50% consumed. CBW: 130 lbs 1.164 oz BMI 22.3 normal range 02/11, compared to UBW of 160 lb in July, pt with a 30 lb (19%) weight loss in 6 months, significant. Pt concerned about eating with diabetes and having high blood sugars, encouraged
increased intakes of meals due to increased calorie and protein needs with cancer. Pt with many visitors in room, held off on NFPE at this time. RD was able to visualize apparent ribs and protrusion of clavicle. With weight loss of > 10% in 6
months and observed muscle and fat wasting pt meets AND/ASEPN criteria for severe protein calorie malnutrition of chronic illness. RD to have an enriched pudding sent on lunch trays, encouraged small frequent meals as tolerated....Subcutaneous loss
of over rib cage severity Moderate.... Muscle loss over clavicle severity Moderate ......'
Based on the above information and your assessment, which of the following most accurately represents the patient's nutritional status?
Severe Protein Calorie Malnutrition
Moderate Protein calorie Malnutrition
Other (please specify)
[place] Criteria ([employer] 2017)
2 or more criteria must be present for either
non severe or severe malnutrition
Note that the criteria differs related to the
presence of an acute or chronic illness
Acute Illness Chronic Illness
Energy Intake Non Severe: <75% for >7 days Non Severe: <75% for >1 month
Severe: <50% for >5 days Severe: <75% for >1 month
Weight Loss Non Severe: 1-2% over 1 week Non Severe: 5% over 1 month
5% over 1 month 7.5% over 3 months
7.5% over 3 months 10% over 6 months
1 year N/A 20% over 1 year
Severe: >2% over 1 week Severe: >5% over 1 month
>5% over 1 month >7.5% over 3 months
>7.5% over 3 months >10% over 6 months
1 year N/A >20% over 1 year
Body Fat Non Severe: Mild Decrease Non Severe: Mild Loss
Severe: Moderate Decrease Severe: Severe Loss
Muscle Mass Non Severe: Mild Decrease Non Severe: Mild Loss
Severe: Moderate Decrease Severe: Severe Loss
Fluid Accumulation Non Severe: Mild Accumulation Non Severe: Mild Accumulation
Severe: Moderate to severe Severe: Moderate to severe
accumulation accumulation
Reduced [employer] Strength Non Severe: N/A Non Severe: N/A
Severe: Measurably reduced Severe: Measurably reduced
Use of terms such as suspected, likely, concern for, or probable (associated with a specific diagnosis that is being evaluated, monitored, or treated as if it exists) are acceptable and can be coded in the inpatient setting, when documented at the
time of discharge.
Thank you,
Trina Gamble RN
CDI Specialist
[place]
Please use your independent medical judgment in providing your response.
--- NOTE | 2024-02-15 07:45 | PN.CDI ---
CDI
- -
CDI:
Physician Documentation Request
Admit Date: 02/12/24 17:23
Dear Doctor Do,
Please review the following and provide your response in the progress notes.
Documentation states that the patient was admitted with syncope.
Clinical Indicators:
Pt admitted with orthostatic Hypotension/Hx of type 2 DM /Pancreatic Cancer with mets to peritoneum
Documented per ED,'.. stage IV pancreatic ca, dnr, but she isn't eating; has had weeks/days of increased dizziness with standing, feels lightheaded and has to sit back down; today she fell backwards ...she looked pretty pale but her hg is higher
than normal probably because she is so dry;orthostatics very positive, drops to 70s standing and was very sypmtomatic....admitting for ivf overnight.. Orthostasis, Dehydration...'
Documented per progress note 02/12, ' Symptomatic orthostatic hypotension Orthostatic vital signs are positive, started on midodrine 02/12...Increase midodrine to 10 mg 3 times daily, first dose at 5 PM Repeat orthostatics at 6 PM...'
Please provide, in your documentation the suspected or likely etiology of the syncope, such as:
Dehydration
Orthostatic Hypotension - indicate suspected etiology such as:
Neurogenic autonomic dysfunction, examples include
- Peripheral autonomic neuropathy ( with diabetes )
- Neurogenic orthostatic hypotension
Other Etiology - please specify
Use of terms such as suspected, likely, concern for, or probable (associated with a specific diagnosis that is being evaluated, monitored, or treated as if it exists) are acceptable and can be coded in the inpatient setting, when documented at the
time of discharge.
Thank you,
Trina Gamble RN
CDI Specialist
[place] [facility]
Please use your independent medical judgment in providing your response.
== END 2024-02-14 19:22 | disposition hospice, home (50) | DRG 56 ==
LOC: 4 EAST ACU 17:23
PROVIDERS: Physician Assistant; ADMITTING PHYSICIAN Internal Medicine; ATTENDING PHYSICIAN Family Medicine; EMERGENCY PHYSICIAN Emergency Medicine; FAMILY PHYSICIAN Family Medicine Geriatric Medicine
DX: G90.3 Multi-system degeneration of the autonomic nervous system (principal); E43 Unspecified severe protein-calorie malnutrition; C25.9 Malignant neoplasm of pancreas, unspecified; C78.6 Secondary malignant neoplasm of retroperitoneum and peritoneum; R78.81 Bacteremia; I50.32 Chronic diastolic (congestive) heart failure; R18.8 Other ascites; E86.0 Dehydration; W19.XXXA Unspecified fall, initial encounter; R63.6 Underweight; Z68.22 Body mass index [BMI] 22.0-22.9, adult; G47.33 Obstructive sleep apnea (adult) (pediatric); R91.8 Other nonspecific abnormal finding of lung field; B95.61 Methicillin susceptible Staphylococcus aureus infection as the cause of diseases classified elsewhere; D63.8 Anemia in other chronic diseases classified elsewhere; E11.9 Type 2 diabetes mellitus without complications; I11.0 Hypertensive heart disease with heart failure; F32.A Depression, unspecified; Z66 Do not resuscitate; R63.0 Anorexia; E78.00 Pure hypercholesterolemia, unspecified; Z85.3 Personal history of malignant neoplasm of breast; Z79.4 Long term (current) use of insulin; Z87.442 Personal history of urinary calculi; K59.00 Constipation, unspecified
CPT/HCPCS: 70450; 72110; 73502; 80048; 80053; 82962; 85025; 85027; 85610; 85730; 86850; 86900; 86901; 93005; 94640; 96360; 97163; 97167; 97530; 99285